=== PATIENT | male | born 1950 | race Caucasian/White ===

== ENCOUNTER → 2022-10-29 11:08 | Outpatient (BNVA) | payer OTHER, SELFPAY | PROVIDERS: PCP Internal Medicine; Visit Provider Urology | DX: C67.9 Malignant neoplasm of bladder, unspecified (principal) | CPT/HCPCS: 51798 ==

== ENCOUNTER 2022-11-11 18:30 | Inpatient (IN) | payer MEDICARE, SELFPAY ==
[2022-11-11] VITALS (22 sets, daily range): BP systolic 70–158; BP diastolic 30–91; PULSE 42–80; RESP 16–18; TEMP 36.1–36.7; O2SAT 97–100; BMI 22.5
--- NOTE | ~2022-11-11 | FL_ITS ---
EXAMINATION: XR FLUOROSCOPY WITH IMAGES CLINICAL INFORMATION: Cystoscopy. Bladder tumor. COMPARISON: None available. TECHNIQUE: Fluoroscopy Supervised By: Dr. Ricky Mckeon. Fluoroscopy Time: 57.4. Cumulative Dose: 20.72 mGy. Images: 4. FINDINGS: There are 4 digital images obtained with double ureteral stent. The proximal ureteral stent is in the left pelvis and the distal end is in the bladder. Minimal contrast is seen in the pelvis. FL/FL guidance in OR IMPRESSION: Fluoroscopy was provided to referring physician for left ureteral stent placement.
--- NOTE | 2022-11-11 13:58 | HO.ANESPROP2 ---
HPI - Anesthesia Eval Consult details Narrative: for cysto, TUR bladder tumor PMFSH Active Problems Active Problems: All Active Problems (Updated 10/29/22 @ 14:46 by Ricky Mckeon MD) Bladder cancer (Acute) Past Medical History Medical History (Updated 10/29/22 @ 14:46 by Ricky Mckeon MD) Anxiety Bladder mass BPH (benign prostatic hyperplasia) EtOH dependence HTN (hypertension) OA (osteoarthritis) Narrative: Last drink September 05 Family History Family history of problems with anesthesia: No Surgical History Surgical History (Updated 11/08/22 @ 11:08 by Vianey Hutchins RN) History of tonsillectomy History of Problems with Anesthesia: No Meds Allergies Allergy/AdvReac Type Severity Reaction Status Date / Time bee pollen [bee stings] Allergy Anaphylaxis Verified 11/08/22 11:08 Active Medications: Current Medications Lactated Ringer's (Lr) 1,000 mls @ 100 mls/hr IVCONT .Q10H LENORA Home Medications Medication Instructions Recorded Confirmed Last Taken Type epinephrine 0.3 mg/0.3 mL 0.3 mg IM ONCE PRN 10/29/22 Unknown History injection, auto-injector finasteride 5 mg tablet 5 mg PO DAILY 10/29/22 Unknown History losartan 25 mg tablet 25 mg PO DAILY 10/29/22 Unknown History sertraline 50 mg tablet 50 mg PO DAILY 10/29/22 Unknown History Vitamin D3 800 units PO DAILY 11/08/22 11/08/22 Unknown History aspirin 81 mg tablet 81 mg PO DAILY 11/08/22 11/08/22 Unknown History cyanocobalamin (vitamin B-12) 1,000 mcg PO DAILY 11/08/22 11/08/22 Unknown History 1,000 mcg tablet (Vitamin B-12) magnesium oxide mg 11/08/22 Unknown History omega-3 fatty acids 1,000 mg PO DAILY 11/08/22 11/08/22 Unknown History vitamin B complex 1 tab PO DAILY 11/08/22 11/08/22 Unknown History Exam Exam Date and Time: November 11, 2022 1358 Airway Mallampati Class: I TM Dist: >3cm Neck ROM: Full Heart: ok Lungs: ok Assessment and Plan Assessment Anesthesia Assessment: Anesthesia Plan Discussed and Chart Reviewed Final Anesthetic Review Family History of Problems with Anesthesia: No History of Problems with Anesthesia: No NPO: Yes ASA Class: II Final Preanesthetic Review: No Changes in Pt Med Stat, Meds/Allgs Chart Reviewed, Consent Obtained/Reviewed and Anes Risks/Benef Reviewed Patient Risk: Intermediate Procedure Risk: Low Anesthetic Plan Anesthetic Plan: GA and Agree w/ Assess. and Plan Disposition: Standard PACU
[2022-11-11 14:20] LABS: COVID-19 Test Negative (Negative); IDNOW Serial# BCCEAD1C
--- NOTE | 2022-11-11 14:38 | PC.NURSE ---
report To lena pruett
--- NOTE | 2022-11-11 14:55 | P.CONAN_ITS ---
[facility] Active Problems Active Problems: All Active Problems (Updated 10/29/22 @ 14:46 by Ricky Mckeon MD) Bladder cancer (Acute) Past Medical History Medical History (Updated 10/29/22 @ 14:46 by Ricky Mckeon MD) Anxiety Bladder mass BPH (benign prostatic hyperplasia) EtOH dependence HTN (hypertension) OA (osteoarthritis) Family History Family history of problems with anesthesia: No Surgical History Surgical History (Updated 11/08/22 @ 11:08 by Vianey Hutchins RN) History of tonsillectomy History of Problems with Anesthesia: No Social History Social History Patient Tobacco Use Status: Never used Tobacco Use of substances other than those prescribed or required for medical reasons: No Advance Directives: No Advance Directives Information Provided: No Meds Allergies Allergy/AdvReac Type Severity Reaction Status Date / Time bee pollen [bee stings] Allergy Anaphylaxis Verified 11/08/22 11:08 Active Medications: Current Medications Acetaminophen (Acetaminophen 325 Mg Tablet) 650 mg PO ONCE PRN PRN Reason: Pain, Mild (Pain Scale 1-3) Fentanyl (Fentanyl Citrate/Pf 100 Mcg/2 Ml Vial) 50 mcg IVPUSH Q5M PRN; Protocol PRN Reason: Pain, Severe (Pain Scale 7-10) Lactated Ringer's (Lr) 1,000 mls @ 100 mls/hr IVCONT .Q10H LENORA Levofloxacin (Levaquin) 500 mg in 100 mls @ 100 mls/hr IV PREOP ONE Stop: 11/11/22 15:24 Ondansetron HCl (Ondansetron Hcl 4 Mg/2 Ml Vial) 4 mg IVPUSH ONCE PRN PRN Reason: Nausea and Vomiting Oxycodone HCl (Oxycodone Hcl Immed Release 5 Mg Tablet) 5 mg PO ONCE PRN PRN Reason: Pain, Severe (Pain Scale 7-10) Home Medications Medication Instructions Recorded Confirmed Last Taken Type epinephrine 0.3 mg/0.3 mL 0.3 mg IM ONCE PRN 10/29/22 Unknown History injection, auto-injector finasteride 5 mg tablet 5 mg PO DAILY 10/29/22 Unknown History losartan 25 mg tablet 25 mg PO DAILY 10/29/22 Unknown History sertraline 50 mg tablet 50 mg PO DAILY 10/29/22 Unknown History Vitamin D3 800 units PO DAILY 11/08/22 11/08/22 Unknown History aspirin 81 mg tablet 81 mg PO DAILY 11/08/22 11/08/22 Unknown History cyanocobalamin (vitamin B-12) 1,000 mcg PO DAILY 11/08/22 11/08/22 Unknown History 1,000 mcg tablet (Vitamin B-12) magnesium oxide mg 11/08/22 Unknown History omega-3 fatty acids 1,000 mg PO DAILY 11/08/22 11/08/22 Unknown History vitamin B complex 1 tab PO DAILY 11/08/22 11/08/22 Unknown History Exam Exam Date and Time: November 11, 2022 1455 Height,Weight and Vital Signs: Height 6 ft 4 in Weight 83.915 kg Last Vital Signs Temp 97.6 F 11/11/22 14:05 Pulse 80 11/11/22 14:05 Resp 16 11/11/22 14:05 BP 158/91 H 11/11/22 14:05 Pulse Ox 98 11/11/22 14:05 O2 Del Method 11/11/22 14:05 Pertinent Lab Results Pertinent Lab Results: Laboratory Tests 11/11/22 13:55 COVID-19 (AME) Negative COVID-19 Clin Com See Note Airway Mallampati Class: III TM Dist: >3cm Neck ROM: Full Assessment and Plan Assessment Anesthesia Assessment: Anesthesia Plan Discussed and Chart Reviewed Final Anesthetic Review Family History of Problems with Anesthesia: No History of Problems with Anesthesia: No NPO: Yes ASA Class: II Final Preanesthetic Review: No Changes in Pt Med Stat, Meds/Allgs Chart Reviewed, Consent Obtained/Reviewed and Anes Risks/Benef Reviewed Patient Risk: Low Procedure Risk: Low Anesthetic Plan Anesthetic Plan: GA Disposition: Standard PACU
--- NOTE | 2022-11-11 15:02 | MHC.SHP ---
Pre-Procedural Eval Section A Date of Service: 11/11/22 The patient is an INPATIENT: No Changes since office visit: No Cold of Flu in the past 2 weeks, No New Medical Problems, No Changes in Medication and No Patient answered all questions The History & Physical has been completed within 30 days and I have reviewed it.: Yes Section B Chief Complaint: Malignant neoplasm of bladder, unspecified Details of Present Illness: left hydro with bladder cancer Relevant Family History (Specify if Yes): No Relevant Social History: None Present Medications: see Short Stay Collaborative assessment Medical History: No relevant PMH History of Previous Operations: No relevant previous surgery Allergies: Allergies Allergy/AdvReac Type Severity Reaction Status Date / Time bee pollen [bee stings] Allergy Anaphylaxis Verified 11/08/22 11:08 Review of Systems Sugical H&P ROS: Negative: Constitution, Cardiovascular, Respiratory, Neurological, Psychiatric, Hem-Onc, Allergic/Immunologic, Gastrointestinal, Genitourinary, Musculoskeletal, Integumentary, Endocrine and Eyes/Ears/Nose/Throat Exam Surgical H&P Exam: Normal: HEENT, Normal: Heart, Normal: Lungs, Normal: Extremities, Normal: Abdomen, Normal: Skin and Normal: Neurological Plan Diagnosis/Plan: Unchanged ( cystoscopy, bilateral retrograde, TURBT) I have reviewed the history and physical and performed a pertinent physical examination on my patient. No changes have occurred unless specified. Time Spent With Patient Time: Total time managing care of this patient today ____ minutes.
--- NOTE | 2022-11-11 18:19 | W.PM.OPN ---
Operative Note Operative Note Date of Service: 11/11/22 Narrative: PreOperative Diagnosis: bladder cancer Post Operative Diagnosis: bladder cancer Procedure: TURBT large with bilateral retrogrades and stents - modifier 22 Surgeon: Dr Ricky Mckeon Anesthesia: general Indications for procedure: gross hematuria with CT imaging showing 5 cm lesion of the left ureteric area with left hydroureteronephrosis Procedure: After informed consent was verified the patient was brought to the operating room and placed in a supine position. Anesthesia was administered per protocol. The patient was placed in a modified dorsal lithotomy position and prepped and draped in a sterile fashion. Safety pause time-out was performed. Antibiotics were confirmed. A 26 Danish continuous flow resectoscope was inserted per urethra. The visual obturator was used in order to minimize potential for urethral damage. extremely large bladder tumor on left sidewall. Satellite lesions throughout base of bladder. Initial approach was to clear satellite lesions from right side and posterior. The extremely larger lesion was slowly resected. Was was very difficult resection took approximately 2 hours which is 150 % longer than typical. There were multiple bladder diverticula lined with tumor. Great care was taken during resection order not to perforate any of these areas. It was difficult to tell if the tumor was invasive. It appeared to be at least T1. At the completion of the procedure the bladder was irrigated. The cystoscope was removed. A [address] Plascencia catheter was inserted into the bladder. 30 cc was placed in the balloon. After completion of resection with multiple irrigation the right ureteric orifice was seen and cannulated. Hydroureteronephrosis was seen. Variable length stent was placed. Likely were able to find the left ureteric orifice right at the edge of the resection zone on the left side. Retrograde examination showed hydroureteronephrosis. A stent was placed which is variable length. Examination under anesthesia showed a mobile bladder. The patient tolerated the procedure well. They were extubated in the operating room and transferred in stable condition to the recovery area. Pathology: Bladder tumor Drains: bilateral stents with 3 way Plascencia catheter
--- NOTE | 2022-11-11 18:59 | PC.NURSE ---
1900 phlebotomy at bedside to draw stat h/h
--- NOTE | 2022-11-11 19:05 | PC.NURSE ---
1904 dr. jordan updated patient with drop sbp 70's and hr as low as 37. anesthesia dr. rios administered ephedrine 10 mgx2. with improvement in vital signs bp 132/64, hr 60's. . updated stat h/h drawn, cbi remains draining punch colored with variable drainage ?bladder spasm. patent cbi
[2022-11-11 19:09] LABS: Hematocrit 37.9 % (42.0-52.0); Hemoglobin 13.1 g/dl (14.0-18.0)
[2022-11-11] MEDS: oxyCODONE HCl Immed Release 5 MG TABLET PO (22:07)
[2022-11-11] MEDS: Lactated Ringers 1,000 ML 100 ML IVCONT (22:14)
[2022-11-12] VITALS (7 sets, daily range): BP systolic 131–150; BP diastolic 65–74; PULSE 71–78; RESP 15–20; TEMP 36–37.2; O2SAT 92–98
--- OUTSIDE RECORDS SUMMARY | 2022-11-12 02:00 | XMS_ITS ---
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 [id number] prostate, unspecified, without urinary obstruction and other lower urinary tract symptoms [LUTS] Problem Anxiety state, 300.00 Active 12161 8003 unspecified Problem Routine general V70.0 Active 1626 62991 medical examination at health care facility Problem Disturbance of 782.0 Active 23484 5003 skin sensation Problem Pain in soft 729.5 Active 8725730 2 tissues of limb Problem Encounter for Z23 Active 569681 02 administration of vaccine Problem Other bursitis 727.3 Active 34472 003 disorders Problem Elevated PSA R97.20 Active 5470482 05 Problem Other and 272.4 Active 05696727 unspecified hyperlipidemia Problem Tinea unguium B35.1 Active 608077 005 Problem Encounter for Z00.00 Active 582442 007 general adult medical examination without abnormal findings Problem Essential I10 Active 67056716 (primary) hypertension Problem Screening for Z12.5 Active 483201 002 prostate cancer ALLERGIES Substance Reaction Event Type Date Status Sera dizziness Drug Allergy May, Active ENCOUNTERS Encounter Location Date Diagnosis [address] Sep, [place] [id number] Sep, [place] [address] Jul, [place] [address] 18 Jul, 2017 [place] [address] [facility] [address] May, Elevated PSA R97.20 [place] [address] 05 May, 2017 Encounter for general adult Practice [place] [address] abnormal finding s Z00.00 ; Encounter for ad ministration of vaccine Z23 ; Sc reening for prostate cancer Z12.5 and Essential (prima ry) hypertension I10 [address] 12 Aug, 2016 Essential (pr imary) Practice [place], [place] hypertension I [address] 14 Jun, 2016 Essential (pr imary) Practice [place] hypertension I [address] 20 May, 2016 Essential (pr imary) [place] hypertension [place] [address] Apr, Encounter for general adult Practice [place] [address] abnormal finding s Z00.00 ; Essential (prima ry) hypertension I10 ; Tinea unguium B35.1 ; Encounter for screening for ma lignant neoplasm of pros phipps Z12.5 and Encounter for im munization Z23 [address] December, [place] [address] December, [place] [address] Oct, Essential (pr imary) Practice [place] hypertension [place] [address] Oct, Essential (pr imary) Practice [place] hypertension I [address] Apr, Routine gener al medical [place] examination at [facility] facility V70.0 ; Unspecified essential hypert ension 401.9 ; Other and unspec ified hyperlipidemia 2 72.4 ; Other bursitis disorde rs 727.3 and Need for prophyl actic vaccination agai nst streptococcus pn eumoniae (pneumococcus) V 03.[address] Mar, Other bursiti s disorders 727.3 [place] [address] Mar, [place] [address] Jan, [place] [address] December, Unspecified e ssential [place] hypertension 4 01.[address] Nov, [place] [address] Oct, Unspecified e ssential Practice [place], [place] hypertension 4 01.9 ; [place] [address] soft tissues of limb 729.5 and Disturbance of s kin sensation 782.[address] Jun, [place] [address] Apr, Routine gener al medical Practice [place] examination at [place] [address] facility V70.0 ; Unspecified essential hypert ension 401.9 ; Other and unspec ified hyperlipidemia 2 72.4 ; Hyperplasia of p rostate, unspecified, wit hout urinary obstruction and other lower urinary tract sy mptoms [LUTS] 600.90 ; Anxiety state, unspecified 300. 00 and Lateral epicondylitis of elbow 726.[address] Mar, [place] [address] Feb, [place] [address] December, [place] [address] December, [place] [address] December, Unspecified e ssential Practice [place], [place] hypertension 4 01.9 ; [address] Hyperplasia of p rostate, unspecified, wit hout urinary obstruction and other lower urinary tract sy mptoms [LUTS] 600.90 and Other and unspecified hype rlipidemia 272.[address] Nov, [place] [address] Nov, [place] Nov, Practice [address] 26 Oct, [address] 16 Aug, [address] 14 Aug, [address] 18 Jul, 2013 Routine gener al medical Practice [place] examination at [place] [address] facility V70.0 ; Unspecified essential hypert ension 401.9 ; Other and unspec ified hyperlipidemia 2 72.4 and Hyperplasia of p rostate, unspecified, wit hout urinary obstruction and other lower urinary tract sy mptoms [LUTS] [address] 17 Apr, 2013 Routine gener al medical [place] examination at [place] [address] facility V70.0 ; Unspecified essential hypert ension 401.9 ; Other and unspec ified hyperlipidemia 2 72.4 ; Anxiety state, unspecifi ed 300.00 and Hyperplasia of p rostate, unspecified, wit hout urinary obstruction and other lower urinary tract sy mptoms [LUTS] 600.[address] 18 Oct, 2012 Cough 786.2 a nd Rash and other Practice [place] nonspecific sk in eruption 782.[address] [place] [address] 14 Oct, [address] 11 Jul, [address] 10 Mar, [address] Feb, Routine gener al medical [place] examination [place] [address] facility V70.0 ; Screening for unspecified cond ition V82.9 ; Obesity, unspeci fied 278.00 ; Other and unspec ified hyperlipidemia 2 72.4 ; Unspecified esse ntial hypertension 401 .9 ; Anxiety state, unspecifi ed 300.00 and Hyperplasia of p rostate, unspecified, wit hout urinary obstruction and other lower urinary tract sy mptoms [LUTS] [address] Jan, Practice [place], [address] Sep, Practice [place], [address] Jun, Practice [place], [address] Mar, Practice [place], [address] Feb, Practice [place], [address] Feb, Routine gener al medical [place] examination [place] [address] facility V70.0 ; Unspecified essential hypert ension 401.9 ; Other and unspec ified hyperlipidemia 2 72.4 ; Anxiety state, unspecifi ed 300.00 and Hyperplasia of p rostate, unspecified, wit hout urinary obstruction and other lower urinary tract sy mptoms [LUTS] [address] Feb, Routine gener al medical [place] examination [place] [address] facility V[address] Jan, [place], [address] Nov, Practice [place], [address] Nov, Practice [place], [address] Nov, Practice [place], [address] Nov, Swelling, mas s, or lump in [place] chest 786.6 ; Unspecified [facility] essential hypert ension 401.9 and Anxiety stat e, unspecified 300.[address] Sep, Practice [place], [address] Feb, Routine gener al medical Practice [place] examination [place] [address] facility V70.0 ; Unspecified essential hypert ension 401.9 and Other and un specified hyperlipidemia [address] Feb, Practice [place], [facility] [address] Nov, Practice [place], [address] Aug, Practice [place], [address] 08 Jan, 2009 Routine gener al medical [place] examination [place] [address] facility V70.0 ; Unspecified essential hypert ension 401.9 and Other specif ied congenital anomaly of skin 757.[address] 04 Jan, 2009 Routine gener al medical Practice [place] examination at [address] V70.0 ; Other and unspecified hype rlipidemia 272.4 and Unspec ified essential hypertension [address] December, Colitis, ente ritis, and Practice [place] [address] infectious origi n 009.1 and Routine general medical examination at [facility] facility V70.[address] Oct, Practice [place], [place] [address] [place] [address] Oct, Practice [place], [place] [address] [place] [address] Aug, Practice [place], [place] [address] [place] [address] Jul, Practice [place], [place] [address] [place] [address] Jul, Practice [place], [place] [address] [place] [address] Jun, Practice [place], [place] [address] [place] [address] Jun, Practice [place], [place] [address] [place] [address] Mar, Practice [place], [place] [address] [place] [address] December, Routine gener al medical [place] examination [place] [address] facility V70.0 a nd Unspecified essential hypert ension 401.[address] 15 Sep, 2007 Routine gener al medical [place] examination [place] [address] facility V70.0 a nd Other and unspecified hype rlipidemia 272.[address] 05 Jul, 2007 Herpes zoster without mention Practice [place], [place] of complicatio n 053.9 [address] [facility] [place] [address] Apr, Practice [place], [place] [address] [place] [address] Feb, Unspecified s inusitis (chronic) Practice [place], [place] 473.9 and Othe r and unspecified [address] conjunctivitis [address] Feb, Practice [place], [place] [address] [place] [address]. Jan, Other and uns pecified Practice [place] conjunctivitis 372.[address] 30 Nov, 2006 Routine gener al medical [place] examination at [facility] facility V70.0 ; Unspecified essential hypert ension 401.9 ; Pure hypercholes terolemia 272.0 and Anxiety stat e, unspecified 300.[address] Nov, Other and uns pecified Practice [place] hyperlipidemia 272.4 ; [address] Unspecified esse ntial hypertension 401 .9 and Special screening for ma lignant neoplasm of pros phipps V76.[address] Sep, Bronchitis, n ot specified as Practice [place], [place] acute or chron ic [address] Aug, Practice [place], [place] [address] [place] [address]. May, Unspecified e ssential Practice [place] hypertension 4 01.9 ; Pure [address] hypercholesterol emia 272.0 and Anxiety state, u nspecified 300.[address] Apr, Practice [place], [place] [address] [place] [address] 18 Apr, 2006 Practice [place], [place] [address] [place] [address] St. 31 Mar, 2006 Practice [place], [place] [address] [place] [address] St. 17 Mar, 2006 [place] [address] [place] [address] St. 20 Feb, 2006 Unspecified e ssential [place] hypertension 4 01.9 and Pure [address] hypercholesterol emia 272.[address] 14 Feb, 2006 Practice [place], [place] [address] [place] [address] St. 13 Jan, 2006 Practice [place], [place] [address] [place] [address]. 05 Jan, 2006 Unspecified e ssential Practice [place] hypertension 4 01.9 [address] [facility] [address] 03 Oct, 2005 Routine gener al medical [place] examination at [facility] facility V70.0 [facility] [address] 31 Aug, 2005 Elevated bloo d pressure reading Practice [place], [place] [address] hypertension 796 .2 and Pure hypercholesterol emia 272.0 IMMUNIZATIONS Vaccine Route Administration Date Status Influenza, High Dose (Private IM Intramuscular May 29, 2017 A dministered Supply) Tdap (Private) IM Intramuscular May 29, 2017 Administered Prevnar 13 (State Supply) IM Intramuscular May 22, 2015 Admin istered Influenza, High Dose (Private IM Intramuscular May 23, 2016 A dministered Supply) Pneumovax-Pneumococcal IM Intramuscular May 23, 2016 Administ ered polysaccharide PPV23 (Private) SOCIAL HISTORY Qualifiers Date Former Smoker REASON FOR REFERRAL FUNCTIONAL STATUS PLAN OF CARE Activity Details Follow Up 1 Year,prn Reason:CPX Future Test PSA Screening 19409445 Future Test Thyroid Stimulating Hormone w/Reflex 20170529 Future Test CBC AUTO DIFF (REFLEX TO MAN UAL) 20170529 Future Test Comprehensive Metabolic Pane l(CMP) 20170529 Future Test PSA Screening 20170529 Future Test Lipid Profile 33886305 VITAL SIGNS Temperature 97.2 degrees Fahrenheit 2017-05-29 Temperature 97.8 degrees Fahrenheit 2016-05-23 Temperature 97.4 degrees Fahrenheit 2015-05-22 Temperature 98.1 degrees Fahrenheit 2015-04-14 Temperature 97.6 degrees Fahrenheit 2015-01-20 Temperature 97.9 degrees Fahrenheit 2014-10-24 Temperature 97.4 degrees Fahrenheit 2014-05-16 Temperature 97.9 degrees Fahrenheit 2014-01-13 Temperature 97.5 degrees Fahrenheit 2013-05-11 Temperature 99.3 degrees Fahrenheit 2012-11-09 Temperature 97.4 degrees Fahrenheit 2012-03-24 Temperature 97.0 degrees Fahrenheit 2011-03-12 Temperature 97.9 degrees Fahrenheit 2010-11-23 Temperature 98.1 degrees Fahrenheit 2010-03-12 Temperature 98.4 degrees Fahrenheit 2009-01-30 Temperature 98.1 degrees Fahrenheit 2009-01-12 Temperature 97.9 degrees Fahrenheit 2007-12-30 Temperature 97.0 degrees Fahrenheit 2007-07-29 Temperature 96.7 degrees Fahrenheit 2007-02-23 Temperature 98.7 degrees Fahrenheit 2007-02-20 Temperature 97.7 degrees Fahrenheit 2006-12-22 Temperature 98.2 degrees Fahrenheit 2006-09-25 Temperature 98 degrees Fahrenheit 2006-06-12 Temperature 98.3 degrees Fahrenheit 2006-03-13 Temperature 97 degrees Fahrenheit 2006-01-27 Temperature 97.9 degrees Fahrenheit 2005-10-25 Temperature 96.5 degrees Fahrenheit 2005-09-24 Heart Rate 68 /min 2017-05-29 Heart Rate 68 /min 2016-05-23 Heart Rate 78 /min 2015-11-15 Heart Rate 68 /min 2015-05-22 Heart Rate 76 /min 2015-04-14 Heart Rate 76 /min 2015-01-20 Heart Rate 80 /min 2014-10-24 Heart Rate 88 /min 2014-05-16 Heart Rate 80 /min 2014-01-13 Heart Rate 80 /min 2013-05-11 Heart Rate 93 /min 2012-11-09 Heart Rate 76 /min 2012-03-24 Heart Rate 75 /min 2011-03-12 Heart Rate 93 /min 2010-11-23 Heart Rate 82 /min 2010-03-12 Heart Rate 77 /min 2009-01-30 Heart Rate 70 /min 2009-01-12 Heart Rate 83 /min 2007-12-30 Heart Rate 82 /min 2007-07-29 Heart Rate 71 /min 2007-02-23 Heart Rate 86 /min 2007-02-20 Heart Rate 86 /min 2006-12-22 Heart Rate 77 /min 2006-09-25 Heart Rate 78 /min 2006-06-12 Heart Rate 70 /min 2006-03-13 Heart Rate 73 /min 2006-01-27 Heart Rate 78 /min 2005-10-25 Heart Rate 80 /min 2005-09-24 Weight 224 lbs 2017-05-29 Weight 239 lbs 2016-05-23 Weight 249 lbs 2015-05-22 Weight 239 lbs 2015-04-14 Weight 253 lbs 2015-01-20 Weight 251.4 lbs 2014-10-24 Weight 244.4 lbs 2014-05-16 Weight 234.0 lbs 2014-01-13 Weight 248 lbs 2013-05-11 Weight 243 lbs 2012-11-09 Weight 242 lbs 2012-03-24 Weight 228 lbs 2011-03-12 Weight 232 lbs 2010-11-23 Weight 219 lbs 2010-03-12 Weight 211 lbs 2009-01-30 Weight 212 lbs 2009-01-12 Weight 203.6 lbs 2007-12-30 Weight 248 lbs 2007-07-29 Weight 237 lbs 2007-02-23 Weight 237 lbs 2007-02-20 Weight 231 lbs 2006-12-22 Weight 226 lbs 2006-09-25 Weight 225 lbs 2006-06-12 Weight 233 lbs 2006-03-13 Weight 230 lbs 2006-01-27 Weight 222 lbs 2005-10-25 Weight 220 lbs 2005-09-24 BMI 28.37 kg/m2 2017-05-29 BMI 30.27 kg/m2 2016-05-23 BMI 31.54 kg/m2 2015-05-22 BMI 30.27 kg/m2 2015-04-14 BMI 32.05 kg/m2 2015-01-20 BMI 31.84 kg/m2 2014-10-24 BMI 30.96 kg/m2 2014-05-16 BMI 29.64 kg/m2 2014-01-13 BMI 31.41 kg/m2 2013-05-11 BMI 30.78 kg/m2 2012-11-09 BMI 30.65 kg/m2 2012-03-24 BMI 28.88 kg/m2 2011-03-12 BMI 27.37 kg/m2 2010-03-12 BMI 26.37 kg/m2 2009-01-30 BMI 26.50 kg/m2 2009-01-12 BMI 25.45 kg/m2 2007-12-30 BMI 30.99 kg/m2 2007-07-29 BMI 28.87 kg/m2 2006-12-22 BMI 28.24 kg/m2 2006-09-25 BMI 27.75 kg/m2 2005-10-25 BMI 27.50 kg/m2 2005-09-24 Height 74.5 in 2017-05-29 Height 74.5 in 2016-05-23 Height 74.5 in 2015-11-15 Height 74.5 in 2015-05-22 Height 74.5 in 2015-04-14 Height 74.5 in 2015-01-20 Height 74.5 in 2014-10-24 Height 74.5 in 2014-05-16 Height 74.5 in 2014-01-13 Height 74.5 in 2013-05-11 Height 74.5 in 2012-11-09 Height 74.5 in 2012-03-24 Height 74.5 in 2011-03-12 Height 75 in 2010-03-12 Height 75 in 2009-01-30 Height 75 in 2009-01-12 Height 75 in 2007-12-30 Height 75 in 2007-07-29 Height 75 in 2006-12-22 Height 75 in 2006-09-25 Height 75 in 2005-10-25 Height 75 in 2005-09-24 Respiratory Rate 16 /min 2017-05-29 Respiratory Rate 16 /min 2016-05-23 Respiratory Rate 17 /min 2015-11-15 Respiratory Rate 16 /min 2015-05-22 Respiratory Rate 16 /min 2015-04-14 Respiratory Rate 16 /min 2015-01-20 Respiratory Rate 16 /min 2014-10-24 Respiratory Rate 20 /min 2014-05-16 Respiratory Rate 16 /min 2014-01-13 Respiratory Rate 16 /min 2013-05-11 Respiratory Rate 18 /min 2012-11-09 Respiratory Rate 16 /min 2012-03-24 Respiratory Rate 16 /min 2011-03-12 Respiratory Rate 16 /min 2010-11-23 Respiratory Rate 16 /min 2010-03-12 Respiratory Rate 16 /min 2009-01-30 Respiratory Rate 18 /min 2009-01-12 Respiratory Rate 18 /min 2007-12-30 Respiratory Rate 18 /min 2007-07-29 Respiratory Rate 18 /min 2007-02-23 Respiratory Rate 18 /min 2007-02-20 Respiratory Rate 16 /min 2006-12-22 Respiratory Rate 16 /min 2006-09-25 Respiratory Rate 16 /min 2006-06-12 Respiratory Rate 16 /min 2006-03-13 Respiratory Rate 16 /min 2006-01-27 Respiratory Rate 20 /min 2005-10-25 Respiratory Rate 16 /min 2005-09-24 Oximetry 95% RA % 2012-11-09 Blood pressure systolic 142 mm Hg 2017-05-29 Blood pressure diastolic 70 mm Hg 2017-05-29 MEDICATIONS Medication Instructions Dosage Frequency Start End Date Duration Stat us Date Saw Lawrence Active Magnesium Active Citrate Losartan TAKE 1 AND 90 Active Potassium 50 1/2 TABLETS MG BY MOUTH ONCE A DAY Aspirin 81 MG Orally Once a 1 tablet 24h 30 day(s) A ctive day Vitamin B Orally once a 1 tablet 24h Active Complex - day Zoloft 50 MG TAKE 1 90 Active TABLET BY MOUTH ONCE DAILY Fish Oil 1000 Orally QD 2 capsule 24h 30 day(s) Acti ve MG Proscar 5 MG Orally Once a 1 tablet 24h 30 day(s) Ac tive day PROCEDURES Procedure Date Ordered Result Body Site IMMUNIZATION ADMIN May 29, 2017 AT LEAST 1 RX TRANSMIT ERX SYS November 09, 2012 ANNUAL WELLNESS VST; PPS SUBSQT VST May 23, 2016 URINALYSIS, AUTO, W/O SCOPE March 24, 2012 IMMUNIZATION ADMIN May 23, 2016 URINE-NO MICRO January 30, 2009 TOBACCO NON-USER November 09, 2012 IMMUNIZATION ADMIN, EACH ADD May 29, 2017 PROS CANCER SCR; DIGTL RECTAL EXAM December 30, 2007 URINE-NO MICRO December 22, 2006 PROS CANCER SCR; DIGTL RECTAL EXAM March 12, 2011 PROS CANCER SCR; DIGTL RECTAL EXAM March 12, 2010 PROS CANCER SCR; DIGTL RECTAL EXAM January 30, 2009 URINE-NO MICRO March 12, 2011 URINE-NO MICRO October 25, 2005 IMMUNIZATION ADMIN May 22, 2015 MEASURE BLOOD OXYGEN LEVEL November 09, 2012 MICROALBUMIN, SEMIQUANT March 24, 2012 ANNUAL WELLNESS VST; PPS SUBSQT VST May 29, 2017 NEBULIZER TREATMENT November 09, 2012 FLU VACC PRSV FREE INC ANTIG May 23, 2016 ASSAY TEST FOR BLOOD, FECAL March 24, 2012 PNEUMOCOCCAL VACC 13 JOEL IM May 22, 2015 Pneumovax-Pneumococcal polysaccharide PPV23 (Private) May 23, 016 FLU VACC PRSV FREE INC ANTIG May 29, 2017 ASSAY TEST FOR BLOOD, FECAL May 11, 2013 TDAP VACCINE >7 IM May 29, 2017 ADMN PNEUMCOC VAC NO FEE SCHED May 23, 2016 RESULTS Name Result Date Reference Range Comprehensive Metabolic 2017-05-29 Panel(CMP) Glucose 108 65-100 BUN 24 7-23 Creatinine 0.77 0.66-1.25 BUN/Creat 31.2 7.0-25.0 Sodium 138 137-145 Potassium 4.6 3.6-5.0 Chloride 102 98-107 CO2 28 22-30 Anion Gap 8.0 5.0-15.0 Calcium 8.8 8.4-10.6 Tot.Prot. 7.0 6.3-8.2 Albumin 4.3 2.6-5.2 A/G Ratio 1.6 1.1-1.8 Alk Phos 55 38-126 AST 23 15-40 ALT 33 <=56 Bilirubin 0.6 0.2-1.3 eGFR >=60 >=60 Comment The MDRD study equation has not been validated in children under 18 years and women. If patient is , multiply reported result by 1.21. Test Site [facility] Hemoglobin A1c 2017-05-29 Hgb A1c 5.4 4.5-6.1 Calculated Mean 94 69-123 Comment Hgb A1c: Normal range 4.5 - 6.1% Diabetic levels: Therapeutic goal < 7% Re-evaluate therapy > 8% Calculated mean glucose therapeutic goal < 150 mg/dl Thyroid Stimulating Hormone 2017-05-29 w/Reflex TSH 1.030 0.500-4.700 Lipid Profile 2017-05-29 Cholestero 243 <=200 Trig. 94 <=150 HDL 83 >=40 LDL 141.2 <=130.0 Card.Risk 2.93 <=4.97 Rel.Risk 0.59 <=1.00 CBC AUTO DIFF (REFLEX TO 2017-05-29 MANUAL) WBC 6.02 4.80-10.80 RBC 4.53 4.60-6.20 HGB 14.8 14.0-18.0 HCT 43.0 42.0-52.0 MCV 94.9 80.0-94.0 MCH 32.7 27.0-31.0 MCHC 34.4 32.0-36.0 PLT 184.0 150.0-450.0 RDW-CV 12.3 9.9-14.5 ABS NEUT 4.0 1.8-8.6 ABS LYMPH 1.3 0.5-5.4 ABS MONO 0.6 0.0-1.3 ABS EOS 0.1 0.0-0.8 ABS BASO 0.0 0.0-0.3 ABS IG 0.01 0.00-0.10 NEUT % 66.70 37.00-80.00 LYMPH % 21.80 10.00-50.00 MONO % 9.10 0.01-12.00 EOS % 1.70 0.01-7.00 BASO % 0.50 0.01-2.50 IG% 0.2 0.0-1.0 RBC Morph. NORMAL RBC Incl. WBC Morph NORMAL PLT Est. NORMAL PLT Morph NORMAL Test Site [facility] PSA Screening 2017-05-29 PSA 4.530 <=4.000 Liver Function Test Panel 2016-06-12 (LFT) Tot.Prot. 6.8 6.3-8.2 Albumin 4.0 2.6-5.2 A/G Ratio 1.4 1.1-1.8 Alk Phos 62 38-126 AST 32 15-40 ALT 43 <=56 Bilirubin 0.6 0.2-1.3 Benjamin,Unconj 0.3 <=1.1 Benjamin,Conjug 0.0 <=0.3 Benjamin,Direct 0.3 0.0-0.4 Benjamin,Delta 0.3 0.0-0.6 Test Site [facility] PSA Screening 2016-06-12 PSA 0.739 <=4.000 Lipid Profile 2016-02-06 Cholestero 234 <=200 Trig. 124 <=150 HDL 86 >=40 LDL 123.2 <=130.0 Card.Risk 2.72 <=4.97 Rel.Risk 0.55 <=1.00 CBC Auto Diff (Reflex To 2016-02-06 Manual) WBC 5.39 4.80-10.80 RBC 4.44 4.60-6.20 HGB 14.3 14.0-18.0 HCT 41.3 42.0-52.0 MCV 93.0 80.0-94.0 MCH 32.2 27.0-31.0 MCHC 34.6 32.0-36.0 PLT 187.0 150.0-450. RDW-CV 12.7 9.9-14.5 ABS NEUT 3.0 1.8-8.6 ABS LYMPH 1.6 0.5-5.4 ABS MONO 0.5 0.0-1.3 ABS EOS 0.2 0.0-0.8 ABS BASO 0.0 0.0-0.3 ABS IG 0.01 0.00-0.10 NEUT % 56.30 37.00-80.0 LYMPH % 30.40 10.00-50.0 MONO % 9.10 0.01-12.00 EOS % 3.30 0.01-7.00 BASO % 0.70 0.01-2.50 IG% 0.2 0.0-1.0 RBC Morph. NORMAL RBC Incl. WBC Morph NORMAL PLT Est. NORMAL PLT Morph NORMAL Test Site [facility] Comprehensive Metabolic Panel 2016-02-06 Glucose 106 65-100 BUN 19 7-23 Creatinine 0.90 0.66-1.25 BUN/Creat 21.1 7.0-25.0 Sodium 139 137-145 Potassium 4.3 3.6-5.0 Chloride 102 98-107 CO2 28 22-30 Anion Gap 9.0 5.0-15.0 Calcium 9.0 8.4-10.6 Tot.Prot. 6.6 6.3-8.2 Albumin 3.9 2.6-5.2 A/G Ratio 1.4 1.1-1.8 Alk Phos 58 38-126 AST 27 15-40 ALT 31 <=56 Bilirubin 0.6 0.2-1.3 eGFR >=60 >=60 Comment The MDRD study equation has not been validated in children under 18 years and women. If patient is , multiply reported result by 1.21. Test Site [facility] Vitamin D, 25-Hydroxy IA 2014-10-24 VITAMIN D, 25-OH, TOTAL 39 30-100 VITAMIN D, 25-OH, D3 39 VITAMIN D, 25-OH, D2 <4 Vitamin B12 2014-10-24 Vit. B12 915.0 239.0-931. Occult Blood, Feces (FOBT) 2013-05-11 (FIT) Occ Bld Neg Test Site Specimen Type POC Influenza A+B ([facility] 2012-11-09 Sites Only) FLU A Ag Negative NEGATIVE FLU B Ag Negative NEGATIVE Test Site [facility] Occult Blood, Feces (FOBT) 2012-03-24 (FIT) Occ Bld NEG Test Site Specimen Type Urinalysis, Routine (UA) 2012-03-24 Automated Interfer: UA Micro? Color Yellow Clarity Glucose Neg Clinitest Bilirubin Neg Ictotest Ketones Neg SG 1.010 pH 7.0 Protein Neg Urobil. 0.2 Nitrite Neg Blood Neg Leukocytes Neg UA/Micro Color Inf. Test Site Urinalysis, Routine (UA) 2011-03-12 Automated Interfer: UA Micro? Color Lt. Yellow Clarity Glucose Neg Clinitest Bilirubin Neg Ictotest Ketones Neg SG 1.010 pH 5.5 Protein Neg Urobil. 0.2 Nitrite neg Blood Neg Leukocytes Neg UA/Micro Color Inf. Test Site CT Scan: Chest Urinalysis, Routine (UA) 2009-01-30 Automated Interfer: UA Micro? Color Yellow Clarity Glucose Neg Clinitest Bilirubin Neg Ictotest Ketones Neg SG 1.010 pH 7.0 Protein Neg Urobil. 0.2 Nitrite Neg Blood Neg Leukocytes Neg UA/Micro Color Inf. Test Site Colonoscopy 97992 Urinalysis, Routine (UA) Automated Interfer: UA Micro? Color yellow Clarity Glucose neg Clinitest Bilirubin neg Ictotest Ketones neg SG 1.010 pH 7.0 Protein neg Urobil. 0.2 Nitrite neg Blood neg Leukocytes neg UA/Micro Color Inf. Test Site Xray: Chest PA/LAT Urinalysis, Routine (UA) Automated Interfer: UA Micro? Color lt yellow Clarity Glucose neg Clinitest Bilirubin neg Ictotest Ketones neg SG 1.015 pH 7.5 Protein neg Urobil. 0.2 Nitrite neg Blood neg Leukocytes neg UA/Micro Color Inf. Test Site REASON FOR VISIT med refill, RE-refill, RE-refills, RE-hurt shoulder, Lab Results, CPE , new med refills, refill, CPX, lab results, refill losartan, TDAP, cpe , refill Zoloft, Losartan, Labs, bp check , B/P, ANNUAL, c/o swelling on elbow, RE: refill proscar , Rx refill: Losartan (90 day supply), 2-3 month f/u BP , Rx refill: Lisinopril, bp issues, Rx Request- Sertraline , cpe , R elbow pain, appt scheduling error , Rx refill( all out ), Refills, Rx Request- Lisinopril, f/u, no c/o today, rx request-Finasteride, Refills, Refills-Sertraline, Reschedule letter , Refills-Finasteride, FYI, Refills, CPX, c/o cough chest congestion , Rx Request- Sertraline and Lisinopril SEE NOTE, RX request, Rx Request , CPX (had seen Dr Rios previously), Lisinopril and CPE scheduled, rx request, rx request, cpx, patient wasdownstairs needed order, Refills, faxed already, medication question, CT results/ med side effect, Test results, ? MUSCLE PULL RT SIDE BELOW BREAST AREA, Refills, faxed already, Annuals, refill, Refills, CPX, Needs lab orders faxed, diarrhea x 4 days , cpx, RX THAT WAS CALLED IN, Refill, RX request, Refills, left message. rb, FYI, annual cpx, Lab slip for CPX, rash, cold for 6/ weeks , Needs call back from office, conjuctivitis , cpx, Message, annual, congestion, refill, 3 mos fu HTN, hypertension, refill, refill, Follow up, MEDS, 3month f/u, annual, annual, EST CARE Insurance Providers [facility] Member Patient Patient Patient Patient Patient Subscriber Subscriber Subscriber Group Insurance Plan Plan Plan Plan ID Relationship Address Phone Name Date of ID Name Date of No Type Insurance Insurance Insurance Coverage to Subscriber Address Phone Name Dates MEDICARE A [phone] MEDICARE A self Luis [id number] [address] [facility] [place] [id number] [facility] [phone] [facility] self Luis [id number] [facility] [id number] HEALTHCARE [place] [address] OPTIONS1- SUPPLEMENT [id number] SUPPLEMENT AL AL ANTHEM [phone] ANTHEM self Luis [id number] [place] [address]
--- OUTSIDE RECORDS SUMMARY | 2022-11-12 02:04 | XMS_ITS ---
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, unspecified, without urinary obstruction and other lower urinary tract symptoms [LUTS] Problem Anxiety state, 300.00 Active 44447 8003 unspecified Problem Routine general V70.0 Active 1626 89189 medical examination at health care facility Problem Disturbance of 782.0 Active 46034 5003 skin sensation Problem Pain in soft 729.5 Active 1625347 2 tissues of limb Problem Encounter for Z23 Active 058310 02 administration of vaccine Problem Other and 272.4 Active 57722539 unspecified hyperlipidemia Problem Elevated PSA R97.20 Active 5637205 05 Problem Other bursitis 727.3 Active 66895 003 disorders Problem Tinea unguium B35.1 Active 097274 005 Problem Encounter for Z00.00 Active 028606 007 general adult medical examination without abnormal findings Problem Essential I10 Active 58117155 (primary) hypertension Problem Screening for Z12.5 Active 630083 002 prostate cancer ALLERGIES Substance Reaction Event Type Date Status Sera dizziness Drug Allergy May, Active ENCOUNTERS Encounter Location Date Diagnosis [address] Sep, [place] [address] Sep, [place] [address] Jul, [place] [address] 18 Jul, 2017 [place] [address] [facility] [place] [address] May, Elevated PSA R97.20 [place] [address] 05 May, 2017 Encounter for general adult [place] [address] abnormal finding s Z00.00 ; Encounter for ad ministration of vaccine Z23 ; Sc reening for prostate cancer Z12.5 and Essential (prima ry) hypertension I10 [address] 12 Aug, 2016 Essential (pr imary) [place] hypertension [place] [address] 14 Jun, 2016 Essential (pr imary) [place] hypertension I [address] 20 May, 2016 Essential (pr imary) [place] hypertension I [address] Apr, Encounter for general adult [place] [address] abnormal finding s Z00.00 ; Essential (prima ry) hypertension I10 ; Tinea unguium B35.1 ; Encounter for screening for ma lignant neoplasm of pros phipps Z12.5 and Encounter for im munization Z23 [address] December, [place] [address] December, [place] [address] Oct, Essential (pr imary) [place] hypertension I [address] Oct, Essential (pr imary) [place] hypertension I [address] Apr, Routine gener al medical [place] examination at [facility] facility V70.0 ; Unspecified essential hypert ension 401.9 ; Other and unspec ified hyperlipidemia 2 72.4 ; Other bursitis disorde rs 727.3 and Need for prophyl actic vaccination agai nst streptococcus pn eumoniae (pneumococcus) V 03.[address] Mar, Other bursiti s disorders 727.3 [place] [address] Mar, [place] [address] Jan, [place] [address] December, Unspecified e ssential [place] hypertension 4 01.[address] Nov, [place] [address] Oct, Unspecified e ssential [place] hypertension 4 01.9 ; [place] [address] soft tissues of limb 729.5 and Disturbance of s kin sensation 782.[address] Jun, [place] [address] Apr, Routine gener al medical [place] examination at [place] [address] facility V70.0 ; Unspecified essential hypert ension 401.9 ; Other and unspec ified hyperlipidemia 2 72.4 ; Hyperplasia of p rostate, unspecified, wit hout urinary obstruction and other lower urinary tract sy mptoms [LUTS] 600.90 ; Anxiety state, unspecified 300. 00 and Lateral epicondylitis of elbow 726.[address] Mar, [place] [address] Feb, [place] [address] December, [place] [address] December, [place] [address] December, Unspecified e ssential [place] hypertension 4 01.9 ; [address] Hyperplasia of p rostate, unspecified, wit hout urinary obstruction and other lower urinary tract sy mptoms [LUTS] 600.90 and Other and unspecified hype rlipidemia 272.[address] Nov, [place] [address] Nov, [place] Nov, Practice [address] 26 Oct, [address] 16 Aug, [address] 14 Aug, [address] 18 Jul, 2013 Routine gener al medical [place] examination [place] [address] facility V70.0 ; Unspecified essential hypert ension 401.9 ; Other and unspec ified hyperlipidemia 2 72.4 and Hyperplasia of p rostate, unspecified, wit hout urinary obstruction and other lower urinary tract sy mptoms [LUTS] 600.[address] 17 Apr, 2013 Routine gener al medical [place] examination [place] [address] facility V70.0 ; Unspecified essential hypert ension 401.9 ; Other and unspec ified hyperlipidemia 2 72.4 ; Anxiety state, unspecifi ed 300.00 and Hyperplasia of p rostate, unspecified, wit hout urinary obstruction and other lower urinary tract sy mptoms [LUTS] 600.[address] 18 Oct, 2012 Cough 786.2 a nd Rash and other [place] nonspecific sk in eruption 782.[address] [place] [address] 14 Oct, [address] 11 Jul, [address] 10 Mar, [address] Feb, Routine gener al medical [place] [address] facility V70.0 ; Screening for unspecified cond ition V82.9 ; Obesity, unspeci fied 278.00 ; Other and unspec ified hyperlipidemia 2 72.4 ; Unspecified esse ntial hypertension 401 .9 ; Anxiety state, unspecifi ed 300.00 and Hyperplasia of p rostate, unspecified, wit hout urinary obstruction and other lower urinary tract sy mptoms [LUTS] 600.[address] Jan, [place], [address] Sep, [place], [address] Jun, [place], [address] Mar, [place], [address] Feb, [place], [address] Feb, Routine gener al medical [place] [address] facility V70.0 ; Unspecified essential hypert ension 401.9 ; Other and unspec ified hyperlipidemia 2 72.4 ; Anxiety state, unspecifi ed 300.00 and Hyperplasia of p rostate, unspecified, wit hout urinary obstruction and other lower urinary tract sy mptoms [LUTS] 600.[address] Feb, Routine gener al medical [place] [address] [address] Jan, [place], [address] Nov, [place], [address] Nov, [place], [address] Nov, [place], [address] Nov, Swelling, mas s, or lump in [place] chest 786.6 ; Unspecified [facility] essential hypert ension 401.9 and Anxiety stat e, unspecified 300.[address] Sep, [place], [address] Feb, Routine gener al medical [place] [address] facility V70.0 ; Unspecified essential hypert ension 401.9 and Other and un specified hyperlipidemia [address] Feb, [place], [facility] [address] Nov, [place], [address] Aug, [place], [address] 08 Jan, 2009 Routine gener al medical [place] [address] facility V70.0 ; Unspecified essential hypert ension 401.9 and Other specif ied congenital anomaly of skin 757.[address] 04 Jan, 2009 Routine gener al medical [place] examination at [address] V70.0 ; Other and unspecified hype rlipidemia 272.4 and Unspec ified essential hypertension [address] December, Colitis, ente ritis, and [place] gastroenteriti [place] presumed [address] infectious origi n 009.1 and Routine general medical examination at formerly [facility] facility V70.[address] Oct, [place] [address] [place] [address] [email or web address] [address] Oct, [place] [address] [place] [address] Aug, [place] [address] [place] [address] [email or web address] [address] Jul, [place] [address] [place] [address] [email or web address] [address] Jul, [place] [address] [place] [address] [email or web address] [address] Jun, [place] [address] [place] [address] [email or web address] [address] Jun, [place] [address] [place] [address] [email or web address] [address] Mar, [place] [address] [place] [address] [email or web address] [address] December, Routine gener al medical [place] [address] facility V70.0 a nd Unspecified essential hypert ension 401.[address] 15 Sep, 2007 Routine gener al medical [place] [address] facility V70.0 a nd Other and unspecified hype rlipidemia 272.[address] 05 Jul, 2007 Herpes zoster without mention [place] of complicatio n 053.9 [address] [facility] [email or web address] [address] Apr, [place] [address] [place] [address] [email or web address] [address] Feb, Unspecified s inusitis (chronic) [place] 473.9 and Othe r and unspecified [address] conjunctivitis [address] Feb, [place] [address] [place] [address]. Jan, Other and uns pecified [place] conjunctivitis 372.[address] 30 Nov, 2006 Routine gener al medical [place] examination at [facility] facility V70.0 ; Unspecified essential hypert ension 401.9 ; Pure hypercholes terolemia 272.0 and Anxiety stat e, unspecified 300.[address] Nov, Other and uns pecified [place] hyperlipidemia 272.4 ; 46[address] Unspecified esse ntial hypertension 401 .9 and Special screening for ma lignant neoplasm of pros phipps V76.[address] Sep, Bronchitis, n ot specified as [place] acute or chron [place] [address] Aug, [place] [address] [place] [address]. May, Unspecified e ssential [place] hypertension 4 01.9 ; Pure 17164 hypercholesterol emia 272.0 and Anxiety state, u nspecified 300.[address] Apr, [place] [address] [place] [address] 18 Apr, 2006 [place] [address] [place] [address] St. 31 Mar, 2006 [place] [address] [place] [address] St. 17 Mar, 2006 [place] [address] [place] [address] St. 20 Feb, 2006 Unspecified e ssential [place] hypertension 4 01.9 and Pure 70619 hypercholesterol emia 272.[address] 14 Feb, 2006 [place], [place] [address] [place] [address] St. 13 Jan, 2006 [place], [place] [address] [place] [address]. 05 Jan, 2006 Unspecified e ssential [place] hypertension 4 01.9 [address] [facility] [address] 03 Oct, 2005 Routine gener al medical [place] examination at [facility] facility V70.0 [facility] [address] 31 Aug, 2005 Elevated bloo d pressure reading [place] [address] hypertension 796 .2 and Pure hypercholesterol emia 272.0 IMMUNIZATIONS Vaccine Route Administration Date Status Tdap (Private) IM Intramuscular May 29, 2017 Administered Prevnar 13 (State Supply) IM Intramuscular May 22, 2015 Admin istered Influenza, High Dose (Private IM Intramuscular May 29, 2017 A dministered Supply) Influenza, High Dose (Private IM Intramuscular May 23, 2016 A dministered Supply) Pneumovax-Pneumococcal IM Intramuscular May 23, 2016 Administ ered polysaccharide PPV23 (Private) SOCIAL HISTORY Qualifiers Date Former Smoker REASON FOR REFERRAL FUNCTIONAL STATUS PLAN OF CARE Activity Details Follow Up 1 Year,prn Reason:CPX Future Test PSA Screening 20170602 Future Test Thyroid Stimulating Hormone w/Reflex 20170529 Future Test CBC AUTO DIFF (REFLEX TO MAN UAL) 20170529 Future Test Comprehensive Metabolic Pane l(CMP) 20170529 Future Test PSA Screening 20170529 Future Test Lipid Profile 43737374 VITAL SIGNS Temperature 97.2 degrees Fahrenheit 2017-05-29 [...] End Date Duration Stat us Date Saw Raymond Active Magnesium Active Citrate Losartan TAKE 1 [...] Body Site IMMUNIZATION ADMIN May 29, 2017 ADMN PNEUMCOC VAC NO FEE SCHED DAY May 23, 2016 PROS CANCER SCR; DIGTL RECTAL EXAM March 12, 2010 PROS CANCER SCR; DIGTL RECTAL EXAM March 12, 2011 TOBACCO NON-USER November 09, 2012 ASSAY TEST FOR BLOOD, FECAL March 24, 2012 IMMUNIZATION ADMIN May 23, 2016 IMMUNIZATION ADMIN, EACH ADD May 29, 2017 URINE-NO MICRO December 22, 2006 PROS CANCER SCR; DIGTL RECTAL EXAM December 30, 2007 URINE-NO MICRO January 30, 2009 MEASURE BLOOD OXYGEN LEVEL November 09, 2012 URINALYSIS, AUTO, W/O SCOPE March 24, 2012 URINE-NO MICRO March 12, 2011 PROS CANCER SCR; DIGTL RECTAL EXAM January 30, 2009 URINE-NO MICRO October 25, 2005 MICROALBUMIN, SEMIQUANT March 24, 2012 ANNUAL WELLNESS VST; PPS SUBSQT VST May 29, 2017 FLU VACC PRSV FREE INC ANTIG May 23, 2016 ANNUAL WELLNESS VST; PPS SUBSQT VST May 23, 2016 IMMUNIZATION ADMIN May 22, 2015 NEBULIZER TREATMENT November 09, 2012 PNEUMOCOCCAL VACC 13 JOEL IM May 22, 2015 Pneumovax-Pneumococcal polysaccharide PPV23 (Private) May 23, 016 TDAP VACCINE >7 IM May 29, 2017 FLU VACC PRSV FREE INC ANTIG May 29, 2017 ASSAY TEST FOR BLOOD, FECAL May 11, 2013 AT LEAST 1 RX TRANSMIT ERX SYS November 09, 2012 RESULTS Name Result Date Reference Range Comprehensive [...] multiply reported result by 1.21. Test Site [facility] Hemoglobin A1c 2017-05-29 Hgb A1c 5.4 [...] Est. NORMAL PLT Morph NORMAL Test Site [facility] PSA Screening 2017-05-29 PSA 4.530 <=4.000 Liver Function Test Panel 2016-06-12 (LFT) Tot.Prot. 6.8 6.3-8.2 Albumin 4.0 2.6-5.2 A/G Ratio 1.4 1.1-1.8 Alk Phos 62 38-126 AST 32 15-40 ALT 43 <=56 Bilirubin 0.6 0.2-1.3 Benjamin,Unconj 0.3 <=1.1 Benjamin,Conjug 0.0 <=0.3 Benjamin,Direct 0.3 0.0-0.4 Benjamin,Delta 0.3 0.0-0.6 Test Site [facility] PSA Screening 2016-06-12 PSA 0.739 <=4.000 [...] Est. NORMAL PLT Morph NORMAL Test Site [facility] Comprehensive Metabolic Panel 2016-02-06 Glucose 106 [...] multiply reported result by 1.21. Test Site [facility] Vitamin D, 25-Hydroxy IA 2014-10-24 VITAMIN D, 25-OH, TOTAL 39 30-100 VITAMIN D, 25-OH, D3 39 VITAMIN D, 25-OH, D2 <4 Vitamin B12 2014-10-24 Vit. B12 915.0 239.0-931. Occult Blood, Feces (FOBT) 2013-05-11 (FIT) Occ Bld Neg Test Site Specimen Type POC Influenza A+B ([facility] 2012-11-09 Sites Only) FLU A Ag Negative NEGATIVE FLU B Ag Negative NEGATIVE Test Site [facility] Occult Blood, Feces (FOBT) 2012-03-24 (FIT) [...] Neg UA/Micro Color Inf. Test Site [facility] 25829 Urinalysis, Routine (UA) Automated Interfer: UA Micro? [...] f/u, annual, annual, EST CARE Insurance Providers [facility] Member Patient Patient Patient Patient Patient Subscriber Subscriber Subscriber Group Insurance Plan Plan Plan Plan ID Relationship Address Phone Name Date of ID Name Date of No Type Insurance Insurance Insurance Coverage to Subscriber Address Phone Name Dates [facility] [phone] [facility] self Luis [id number] HEALTHCARE [id number] [facility] [address] OPTIONS1- SUPPLEMENT [id number] SUPPLEMENT AL AL MEDICARE A [phone] MEDICARE A self Luis [id number] AND [id number] [address] [facility] [place] [id number] [facility] [phone] ANTH self Luis [id number] [place] [address]
[2022-11-12] MEDS: Acetaminophen 325 MG TABLET 650 MG PO (02:12)
--- OUTSIDE RECORDS SUMMARY | 2022-11-12 02:30 | XMS_ITS ---
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 57607 [id number] prostate, unspecified, without urinary obstruction and other lower urinary tract symptoms [LUTS] Problem Anxiety state, 300.00 Active 14022 8003 unspecified Problem Routine general V70.0 Active 1626 55508 medical examination at health care facility Problem Disturbance of 782.0 Active 72400 5003 skin sensation Problem Pain in soft 729.5 Active 4427737 2 tissues of limb Problem Encounter for Z23 Active 128554 02 administration of vaccine Problem Other and 272.4 Active 13678249 unspecified hyperlipidemia Problem Elevated PSA R97.20 Active 4565285 05 Problem Other bursitis 727.3 Active 21660 003 disorders Problem Tinea unguium B35.1 Active 399784 005 Problem Encounter for Z00.00 Active 364866 007 general adult medical examination without abnormal findings Problem Essential I10 Active 93017246 (primary) hypertension Problem Screening for Z12.5 Active 611915 002 prostate cancer ALLERGIES Substance Reaction Event Type Date Status Sera dizziness Drug Allergy May, Active ENCOUNTERS Encounter Location Date Diagnosis [address] Sep, [place] [address] Sep, [place] [address] Jul, [place] [address] 18 Jul, 2017 [place] [address] [facility] [address] May, Elevated PSA R97.20 [place] [address] 05 May, 2017 Encounter for general adult [place] [address] abnormal finding s Z00.00 ; Encounter for ad ministration of vaccine Z23 ; Sc reening for prostate cancer Z12.5 and Essential (prima ry) hypertension I10 [address] 12 Aug, 2016 Essential (pr imary) [place], [place] hypertension I [address] 14 Jun, 2016 Essential (pr imary) [place] hypertension [place] [address] 20 May, 2016 Essential (pr imary) [place] hypertension I [address] Apr, Encounter for general adult [place] [address] abnormal finding s Z00.00 ; Essential (prima ry) hypertension I10 ; Tinea unguium B35.1 ; Encounter for screening for ma lignant neoplasm of pros phipps Z12.5 and Encounter for im munization Z23 [address] December, [place] [address] December, [place] [address] Oct, Essential (pr imary) [place] hypertension I [address] Oct, Essential (pr imary) [place] hypertension I [address] Apr, Routine gener al medical [place] examination at [facility] care [facility] facility V70.0 ; Unspecified essential hypert ension 401.9 ; Other and unspec ified hyperlipidemia 2 72.4 ; Other bursitis disorde rs 727.3 and Need for prophyl actic vaccination agai nst streptococcus pn eumoniae (pneumococcus) V 03.[address] Mar, Other bursiti s disorders 727.3 [place] [address] Mar, [place] [address] Jan, [place] [address] December, Unspecified e ssential [place] hypertension 4 01.[address] Nov, [place] [address] Oct, Unspecified e ssential [place] hypertension 4 01.9 ; [place] [address] soft tissues of limb 729.5 and Disturbance of s kin sensation 782.[address] Jun, [place] [address] Apr, Routine gener al medical [place] examination at [place] [address] facility V70.0 ; Unspecified essential hypert ension 401.9 ; Other and unspec ified hyperlipidemia 2 72.4 ; Hyperplasia of p rostate, unspecified, wit hout urinary obstruction and other lower urinary tract sy mptoms [LUTS] 600.90 ; Anxiety state, unspecified 300. 00 and Lateral epicondylitis of elbow 726.[address] Mar, [place] [address] Feb, [place] [address] December, [place] [address] December, [place] [address] December, Unspecified e ssential [place] hypertension 4 01.9 ; [address] Hyperplasia of p rostate, unspecified, wit hout urinary obstruction and other lower urinary tract sy mptoms [LUTS] 600.90 and Other and unspecified hype rlipidemia 272.[address] Nov, [place] [address] Nov, [place] Nov, Practice [address] 26 Oct, [address] 16 Aug, [address] 14 Aug, [address] 18 Jul, 2013 Routine gener al medical [place] examination at [place] [address] facility V70.0 ; Unspecified essential hypert ension 401.9 ; Other and unspec ified hyperlipidemia 2 72.4 and Hyperplasia of p rostate, unspecified, wit hout urinary obstruction and other lower urinary tract sy mptoms [LUTS] 600.[address] 17 Apr, 2013 Routine gener al medical [place] examination at [place] [address] facility V70.0 ; Unspecified essential hypert ension 401.9 ; Other and unspec ified hyperlipidemia 2 72.4 ; Anxiety state, unspecifi ed 300.00 and Hyperplasia of p rostate, unspecified, wit hout urinary obstruction and other lower urinary tract sy mptoms [LUTS] 600.[address] 18 Oct, 2012 Cough 786.2 a nd Rash and other [place] nonspecific sk in eruption 782.[address] [place] [address] 14 Oct, [address] 11 Jul, [address] 10 Mar, [address] Feb, Routine gener al medical [place] examination at [place] [address] facility V70.0 ; Screening for unspecified cond ition V82.9 ; Obesity, unspeci fied 278.00 ; Other and unspec ified hyperlipidemia 2 72.4 ; Unspecified esse ntial hypertension 401 .9 ; Anxiety state, unspecifi ed 300.00 and Hyperplasia of p rostate, unspecified, wit hout urinary obstruction and other lower urinary tract sy mptoms [LUTS] 600.[address] Jan, [place], [address] Sep, [place], [address] Jun, [place], [address] Mar, [place], [address] Feb, [place], [address] Feb, Routine gener al medical [place] examination at [place] [address] facility V70.0 ; Unspecified essential hypert ension 401.9 ; Other and unspec ified hyperlipidemia 2 72.4 ; Anxiety state, unspecifi ed 300.00 and Hyperplasia of p rostate, unspecified, wit hout urinary obstruction and other lower urinary tract sy mptoms [LUTS] 600.[address] Feb, Routine gener al medical [place] examination [place] [address] facility V[address] Jan, [place], [address] Nov, [place], [address] Nov, [place], [address] Nov, [place], [address] Nov, Swelling, mas s, or lump in [place] chest 786.6 ; Unspecified [facility] essential hypert ension 401.9 and Anxiety stat e, unspecified 300.[address] Sep, [place], [address] Feb, Routine gener al medical [place] examination [place] [address] facility V70.0 ; Unspecified essential hypert ension 401.9 and Other and un specified hyperlipidemia [address] Feb, [place], [facility] [address] Nov, [facility] [place], [address] Aug, [place], [address] 08 Jan, 2009 Routine gener al medical [place] examination [place] [address] facility V70.0 ; Unspecified essential hypert ension 401.9 and Other specif ied congenital anomaly of skin 757.[address] 04 Jan, 2009 Routine gener al medical [place] examination at [address] V70.0 ; Other and unspecified hype rlipidemia 272.4 and Unspec ified essential hypertension [address] December, Colitis, ente ritis, and [place] gastroenteriti s of presumed [address] infectious origi n 009.1 and Routine general medical examination at [facility] facility V70.[address] Oct, [place] [address] [place] [address] [employer] [address] Oct, [place] [address] [place] [address] Aug, [place], [place] [address] [place] [address] [employer] [address] Jul, Practice [place], [place] [address] [place] [address] [employer] [address] Jul, [place], [place] [address] [place] [address] [employer] [address] Jun, Practice [place], [place] [address] [place] [address] [employer] [address] Jun, Practice [place], [place] [address] [place] [address] [employer] [address] Mar, [place], [place] [address] [place] [address] [employer] [address] December, Routine gener al medical [place] examination [place] [address] facility V70.0 a nd Unspecified essential hypert ension 401.[address] 15 Sep, 2007 Routine gener al medical [place] examination [place] [address] facility V70.0 a nd Other and unspecified hype rlipidemia 272.[address] 05 Jul, 2007 Herpes zoster without mention [place] of complicatio n 053.9 [address] [facility] [employer] [address] Apr, Practice [place], [place] [address] [place] [address] [employer] [address] Feb, Unspecified s inusitis (chronic) [place], [place] 473.9 and Othe r and unspecified [address] conjunctivitis [address] Feb, [place], [place] [address] [place] [address]. Jan, Other and uns pecified [place] conjunctivitis 372.[address] 30 Nov, 2006 Routine gener al medical [place] examination at [facility] care [facility] facility V70.0 ; Unspecified essential hypert ension 401.9 ; Pure hypercholes terolemia 272.0 and Anxiety stat e, unspecified 300.[address] Nov, Other and uns pecified [place] hyperlipidemia 272.4 ; [address] Unspecified esse ntial hypertension 401 .9 and Special screening for ma lignant neoplasm of pros phipps V76.[address] Sep, Bronchitis, n ot specified as [facility] [place] acute [place] chron ic [address] Aug, [place], [place] [address] [place] [address]. May, Unspecified e ssential [place] hypertension 4 01.9 ; Pure [address] hypercholesterol emia 272.0 and Anxiety state, u nspecified 300.[address] Apr, [place], [place] [address] [place] [address] 18 Apr, 2006 [place], [place] [address] [place] [address] St. 31 Mar, 2006 [place], [place] [address] [place] [address] St. 17 Mar, 2006 [place] [address] [place] [address] St. 20 Feb, 2006 Unspecified e ssential [place] hypertension 4 01.9 and Pure [address] hypercholesterol emia 272.[address] 14 Feb, 2006 [place], [place] [address] [place] [address] St. 13 Jan, 2006 [place] [address] [place] [address]. 05 Jan, 2006 Unspecified e ssential [place] hypertension 4 01.9 [address] [facility] [address] 03 Oct, 2005 Routine gener al medical [place] examination at [facility] care [facility] facility V70.0 [facility] [address] 31 Aug, 2005 Elevated bloo d pressure reading [place], [place] [address] hypertension 796 .2 and Pure hypercholesterol emia [...] PSA Screening 20170529 Future Test Lipid Profile [id number] VITAL SIGNS Temperature 97.2 degrees Fahrenheit 2017-05-29 [...] End Date Duration Stat us Date Saw [place] Active Magnesium Active Citrate Losartan TAKE 1 [...] multiply reported result by 1.21. Test Site [facility] Hemoglobin A1c 2017-05-29 Hgb A1c 5.4 [...] Est. NORMAL PLT Morph NORMAL Test Site [facility] PSA Screening 2017-05-29 PSA 4.530 <=4.000 Liver Function Test Panel 2016-06-12 (LFT) Tot.Prot. 6.8 6.3-8.2 Albumin 4.0 2.6-5.2 A/G Ratio 1.4 1.1-1.8 Alk Phos 62 38-126 AST 32 15-40 ALT 43 <=56 Bilirubin 0.6 0.2-1.3 Benjamin,Unconj 0.3 <=1.1 Benjamin,Conjug 0.0 <=0.3 Benjamin,Direct 0.3 0.0-0.4 Benjamin,Delta 0.3 0.0-0.6 Test Site [facility] PSA Screening 2016-06-12 PSA 0.739 <=4.000 [...] Est. NORMAL PLT Morph NORMAL Test Site [facility] Comprehensive Metabolic Panel 2016-02-06 Glucose 106 [...] multiply reported result by 1.21. Test Site [facility] Vitamin D, 25-Hydroxy IA 2014-10-24 VITAMIN D, 25-OH, TOTAL 39 30-100 VITAMIN D, 25-OH, D3 39 VITAMIN D, 25-OH, D2 <4 Vitamin B12 2014-10-24 Vit. B12 915.0 239.0-931. Occult Blood, Feces (FOBT) 2013-05-11 (FIT) Occ Bld Neg Test Site Specimen Type POC Influenza A+B ([facility] 2012-11-09 Sites Only) FLU A Ag Negative NEGATIVE FLU B Ag Negative NEGATIVE Test Site [facility] Occult Blood, Feces (FOBT) 2012-03-24 (FIT) [...] Neg UA/Micro Color Inf. Test Site [facility] 95842 Urinalysis, Routine (UA) Automated Interfer: UA Micro? [...] f/u, annual, annual, EST CARE Insurance Providers [facility] Member Patient Patient Patient Patient Patient Subscriber Subscriber Subscriber Group Insurance Plan Plan Plan Plan ID Relationship Address Phone Name Date of ID Name Date of No Type Insurance Insurance Insurance Coverage to Subscriber Address Phone Name Dates ANTH [phone] [facility] self Luis [id number] [place] [address] [place] [address] [facility] [phone] [facility] self Luis [id number] [facility] [id number] OPTIONS1- SUPPLEMENT [address] SUPPLEMENT AL AL MEDICARE A [phone] MEDICARE A self Luis [id number] AND [id number] [address] [place] [facility] [place] [id number]
[2022-11-12] MEDS: oxyCODONE HCl Immed Release 5 MG TABLET PO (08:25)
[2022-11-12] MEDS: Lactated Ringers 1,000 ML 100 ML IVCONT (08:25)
--- NOTE | 2022-11-12 09:15 | PHA.MEDREC ---
Pharmacy Consult ? Medication Reconciliation Pharmacy has completed the medication reconciliation. Patient does not know dose of potassium or magensium. Louann Carbone, CarolD
--- NOTE | 2022-11-12 10:02 | PM.UROPN ---
Subjective Subjective Date of Service: 11/12/22 Interval history: Post extensive TURBT CBI with [address] way Plascencia catheter Gradually clearing May be able to DC later today if urine with minimal clots Physical Exam Vital Signs: Vital Signs: Last Vital Signs Temp 98 F 11/12/22 07:21 Pulse 78 11/12/22 07:21 Resp 16 11/12/22 07:21 BP 150/72 H 11/12/22 07:21 Pulse Ox 98 11/12/22 07:21 O2 Del Method 11/12/22 07:21 O2 Flow Rate 2 11/11/22 19:43 BMI result Body Mass Index 22.5 Const: General: cooperative, healthy appearing, comfortable and no acute distress Orientation/consciousness: patient oriented x3 HEENT: Face and sinus: Yes normal facial exam Mouth: moist mucous membranes Neck: Neck: Yes normal visual inspection, Yes full ROM and Yes trachea midline Chest: Chest palpation & inspection: normal inspection of the chest Resp: Effort & Inspection: normal respiratory effort, able to speak in complete sentences and no respiratory distress GI: Inspection: Yes normal to inspection Back/Spine/Pelvis: Cervical Spine: normal cervical lordosis Thoracic/Lumbar Spine: thoracic and lumbar spine normal to inspection Skin: General skin exam: no rashes or lesions noted Neuro: General: patient oriented x3, tone normal and moves all extremities Extrem: General: Yes normal to inspection and Yes capillary refill normal Urology Results Labs 11/11/22 19:01 Labs: Laboratory Results - last 24 hr 11/11/22 11/11/22 13:55 19:01 Hgb 13.1 L Hct 37.9 L COVID-19 ([facility]) Negative COVID-19 Clin Com See Note Progress Note: A&P Assessment and plan (1) Bladder cancer: Status: Acute Plan Continue CBI possible discharge later today Time Spent With Patient Time: Total time managing care of this patient today ____ minutes.
--- NOTE | 2022-11-12 14:49 | MHC.CM.PN ---
pt lives they are indepedent pt is covid vax has own ride home
--- NOTE | 2022-11-12 15:12 | HO.POSTANES ---
Post Anesthesia Evaluation Post Anesthesia Evaluation Vital Signs: Vital Signs Temp Pulse Resp BP Pulse Ox O2 Del Method 11/12/22 14:50 92 Room Air 11/12/22 14:23 92 Room Air 11/12/22 07:21 98 F 78 16 150/72 H 98 Room Air 11/12/22 03:20 97.7 F 77 15 145/74 H 97 Room Air Anesthesia: General Mental Status: Awake Pain Control: Satisfactory Nausea/Vomiting: None Hydration: Adequate Anesthesia-Related Issues: No Anes. Related Issues
[2022-11-12] MEDS: Acetaminophen 325 MG TABLET 975 MG PO ×2 (16:32→20:14)
--- NOTE | 2022-11-12 18:14 | PC.NURSE ---
Pt alert and oriented x4. Pt continues on continues bladder irrigation. 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 It is pink Lemonade color. Pt C/O 5/10, prn Oxycodone given this am. At 1600, pt ambulated with 1 assist and a walker all around the hallway. upon returning to the room, pt, C/O of pain. notified and ordered Tylenol 975mg and PRN Tramadol. Possible discharge home tomorrow
[2022-11-13] MEDS: traMADoL HCL 50 MG TABLET PO (02:10)
[2022-11-13 03:36] VITALS: BP 112/65; PULSE 71; RESP 18; TEMP 36.5; O2SAT 95
[2022-11-13 06:56] VITALS: BP 126/71; PULSE 70; RESP 18; TEMP 36.6; O2SAT 97
[2022-11-13] MEDS: Acetaminophen 325 MG TABLET 975 MG PO (09:29)
[2022-11-13] MEDS: 0.9 % Sodium Chloride Flush 3 ML SYRINGE IVFLUSH (09:31)
--- NOTE | 2022-11-13 13:12 | PM.UROPN ---
Subjective Subjective Date of Service: 11/13/22 Interval history: Improved hematuria DC today with catheter Physical Exam Vital Signs: Vital Signs: Last Vital Signs Temp 98 F 11/13/22 06:56 Pulse 70 11/13/22 06:56 Resp 18 11/13/22 06:56 BP 126/71 11/13/22 06:56 Pulse Ox 97 11/13/22 06:56 O2 Del Method 11/13/22 06:56 O2 Flow Rate 2 11/11/22 19:43 BMI result Body Mass Index 22.5 Const: General: cooperative, healthy appearing, comfortable and no acute distress Orientation/consciousness: patient oriented x3 HEENT: Face and sinus: Yes normal facial exam Mouth: moist mucous membranes Neck: Neck: Yes normal visual inspection, Yes full ROM and Yes trachea midline Chest: Chest palpation & inspection: normal inspection of the chest Resp: Effort & Inspection: normal respiratory effort, able to speak in complete sentences and no respiratory distress GI: Inspection: Yes normal to inspection Back/Spine/Pelvis: Cervical Spine: normal cervical lordosis Thoracic/Lumbar Spine: thoracic and lumbar spine normal to inspection Skin: General skin exam: no rashes or lesions noted Neuro: General: patient oriented x3, tone normal and moves all extremities Extrem: General: Yes normal to inspection and Yes capillary refill normal Urology Results Labs 11/11/22 19:01 Progress Note: A&P Assessment and plan (1) Bladder cancer: Status: Acute Plan DC home Time Spent With Patient Time: Total time managing care of this patient today ____ minutes.
--- NOTE | 2022-11-13 13:30 | MHC.CM.PN ---
IMM 11/12/22 Patient is discharged to home self care today. He has arranged for transportation home.
[2022-11-13 15:45] VITALS: BP 146/74; PULSE 68; RESP 17; TEMP 36.9; O2SAT 96
--- NOTE | 2022-12-13 15:02 | P.DS_ITS ---
DS: Providers Provider Date of Service: 11/15/22 Date of admission: 11/11/22 18:30 Primary care physician: Unknown Physician DS: Diagnosis Discharge Diagnosis (1) Bladder cancer: Status: Acute DS: Summary Hospital Course Hospital Course: Underwent TURBT large Had oozing from bladder and required CBI - took 3 days follow-up bladder bleeding to resolve Admitted to hospital while. Bladder ooze settled. Status at Discharge Functional status at discharge: independent ambulation Overall status at discharge: patient is back to baseline Time Spent with Patient Time attestation: Total time managing care of this patient today ____ minutes. Discharge coordination time: Less than 30 minutes Quality: Safe Use of Opioids Does Pt have an Active Cancer Diagnosis on the Problem List?: Yes Opioid Measure Date for [facility] Report: 11/13/22 Opioid Measure Time for [facility] Report: 15:03 Quality: Stroke Does the patient have a stroke diagnosis?: No Physical Exam Vital Signs: Vital Signs: Last Vital Signs Temp 98.5 F 11/13/22 15:45 Pulse 68 11/13/22 15:45 Resp 17 11/13/22 15:45 BP 146/74 H 11/13/22 15:45 Pulse Ox 96 11/13/22 15:45 O2 Del Method Room Air 11/13/22 15:45 O2 Flow Rate 2 11/11/22 19:43 BMI result Body Mass Index 22.5 Const: General: cooperative, healthy appearing, comfortable and no acute distress Orientation/consciousness: patient oriented x3 HEENT: Face and sinus: Yes normal facial exam Mouth: moist mucous membranes Neck: Neck: Yes normal visual inspection, Yes full ROM and Yes trachea midline Chest: Chest palpation & inspection: normal inspection of the chest Resp: Effort & Inspection: normal respiratory effort, able to speak in complete sentences and no respiratory distress GI: Inspection: Yes normal to inspection Back/Spine/Pelvis: Cervical Spine: normal cervical lordosis Thoracic/Lumbar Spine: thoracic and lumbar spine normal to inspection Skin: General skin exam: no rashes or lesions noted Neuro: General: patient oriented x3, tone normal and moves all extremities Extrem: General: Yes normal to inspection and Yes capillary refill normal DS: Data Data Completed and Pending Completed studies during hospitalization [Text1]: Pending at discharge 11/11/22 18:18 Surgical [PTH] Routine Procedures Dilation of Bilateral Ureters with Intraluminal Device, Via Natural or Artificial Opening Endoscopic (11/11/22) Excision of Bladder, Via Natural or Artificial Opening Endoscopic (11/11/22) Fluoroscopy of Kidneys, Ureters and Bladder (11/11/22) Discharge Plan Discharge Anticipated Discharge Date/Time: 11/13/22 13:14 Patient Disposition: Home, Self-Care Discharge Diagnosis: hematuria following extensive TURBT Referrals: Ricky Mckeon MD [Physician] - 3-5 Days (catheter removal) Physician,Namita J [Primary Care Provider] - None Discharge Medications: Continued cyanocobalamin (vitamin B-12) [Vitamin B-12] 1,000 mcg Tablet 1,000 mcg PO DAILY magnesium oxide 400 mg magnesium Tablet 400 mg PO BID multivitamin Tablet 1 tab PO DAILY potassium chloride PO BID finasteride 5 mg tablet 5 mg PO DAILY sertraline 50 mg tablet 50 mg PO DAILY No Action losartan 50 mg tablet 25 mg PO QAM acetaminophen 650 mg Tablet Extended Release 650 mg PO Q12H PRN (Reason: Pain) melatonin 5 mg Tablet 5 mg PO BEDTIME cholecalciferol (vitamin D3) 25 mcg (1,000 unit) Tablet 25 mcg PO DAILY doxycycline monohydrate 100 mg Capsule 100 mg PO Q12H Qty: 28 0RF Discharge Orders: Discharge Order (Routine); Ordered 11/13/22 Ordered By: Ricky Mckeon Diet: Advance to usual diet Activity on Discharge: As tolerated Stand Alone Forms: Patient Portal Discharge page Activity Restrictions/Additional Instructions: brewster catheter to bag f/u in 3-5 days for catheter removal Care Plan Goals: bladder cancer Health Concerns: bladder cancer Plan of Treatment: bladder cancer Assessment: bladder cancer Patient Instructions: Transurethral Resection of Bladder Tumors (DC) Discharge Date/Time: 11/13/22 16:42
== END 2022-11-13 16:42 | disposition home or self-care (01) | DRG 657 ==
LOC: HO.S3 11-12 02:29
PROVIDERS: Anesthesiology; Nurse Practitioner; Admitting Provider Urology; Visit Provider Urology
PROC: 0TBB8ZZ Excision of Bladder, Via Natural or Artificial Opening Endoscopic (ICD-10-PCS; principal; 2022-11-11 15:20)
DX: C67.9 Malignant neoplasm of bladder, unspecified (principal); N13.30 Unspecified hydronephrosis; R31.0 Gross hematuria; Z20.822 Contact with and (suspected) exposure to COVID-19; Z79.899 Other long term (current) drug therapy
CPT/HCPCS: 36415; 85014; 85018; 87635; 88307; C1758; C1769; C2617; J1100; J1956; J2250; J2405; J3010; Q9967

== ENCOUNTER → 2022-11-15 10:46 | Outpatient (BNVA) | payer MEDICARE, SELFPAY | PROVIDERS: PCP Internal Medicine; Visit Provider Urology ==

== ENCOUNTER → 2022-11-29 08:56 | Outpatient (BNVA) | payer MEDICARE, SELFPAY | PROVIDERS: PCP Internal Medicine; Visit Provider Urology | DX: C67.9 Malignant neoplasm of bladder, unspecified (principal); R33.9 Retention of urine, unspecified | CPT/HCPCS: 51700; 51702; 99212 ==

== ENCOUNTER 2022-12-03 17:27 | Emergency (ER) | payer MEDICARE, SELFPAY ==
--- NOTE | 2022-12-03 17:47 | ED.GENADULT ---
HPI - General Adult General Chief complaint: General Medical <BINH Mccullough - Last Filed: 12/04/22 16:18> Stated complaint: infection? <BINH Mccullough - Last Filed: 12/04/22 16:18> Time Seen by Provider: 12/03/22 21:26 <BINH Mccullough - Last Filed: 12/04/22 16:18> Source: patient <David Johnson MD - Last Filed: 12/03/22 23:27> Mode of arrival: ambulatory <David Johnson MD - Last Filed: 12/03/22 23:27> Limitations: no limitations <David Johnson MD - Last Filed: 12/03/22 23:27> History of Present Illness HPI narrative: Patient with history of bladder cancer status post surgery 3 weeks ago his Brewster catheter since yesterday been having chills no fever no nausea no vomiting feels weak. Urine is clear no blood or pus in the urine no other symptoms no other family members sick <David Johnson MD - Last Filed: 12/03/22 23:27> Related Data Home medications: Home Medications Medication Instructions Recorded Confirmed finasteride 5 mg tablet 5 mg PO DAILY 10/29/22 11/12/22 losartan 25 mg tablet 25 mg PO DAILY 10/29/22 11/12/22 sertraline 50 mg tablet 50 mg PO DAILY 10/29/22 11/12/22 Vitamin D3 800 units PO DAILY 11/08/22 11/12/22 cyanocobalamin (vitamin B-12) 1,000 mcg PO DAILY 11/08/22 11/08/22 1,000 mcg tablet (Vitamin B-12) magnesium oxide mg 11/08/22 multivitamin 1 tab PO DAILY 11/12/22 11/12/22 potassium chloride PO DAILY 11/12/22 Previous Rx's Medication Instructions Recorded sulfamethoxazole 400 1 tab PO DAILY #10 tabs 11/13/22 mg-trimethoprim 80 mg tablet (Bactrim) phenazopyridine 100 mg tablet 100 mg PO TID PRN Spasm 4 days #20 11/16/22 (Pyridium) tabs ciprofloxacin HCl 500 mg tablet 500 mg PO BID #20 tabs 12/03/22 (Cipro) <BINH Mccullough - Last Filed: 12/04/22 16:18> Allergies/adverse reactions: Allergies Allergy/AdvReac Type Severity Reaction Status Date / Time bee pollen [bee stings] Allergy Anaphylaxis Verified 11/29/22 09:06 <BINH Mccullough - Last Filed: 12/04/22 16:18> Review of Systems Review of Systems: Yes all other systems are reviewed and are negative <David Johnson MD - Last Filed: 12/03/22 23:27> [facility] Past Medical History Medical History: Medical History Anxiety Bladder mass BPH (benign prostatic hyperplasia) EtOH dependence HTN (hypertension) OA (osteoarthritis) <BINH Mccullough - Last Filed: 12/04/22 16:18> Surgical History: Surgical History History of tonsillectomy <BINH Mccullough - Last Filed: 12/04/22 16:18> Social History Social History: Social History Alcohol intake: never Patient Tobacco Use Status: Never used Tobacco Smoked in Last 30 Days: No Use of substances other than those prescribed or required for medical reasons: No Advance Directives: No Advance Directives Information Provided: No service: No <BINH Mccullough - Last Filed: 12/04/22 16:18> Physical Exam ED Vital Signs: Vital Signs - 24 hr 12/03/22 17:48 12/03/22 20:54 Temperature 98.0 F 99.0 F Pulse Rate 102 H 93 Respiratory Rate 18 17 Blood Pressure 143/71 H 169/73 H Pulse Oximetry 95 95 Oxygen Delivery Method Room Air Room Air BMI result Body Mass Index 22.4 <BINH Mccullough - Last Filed: 12/04/22 16:18> Vital Signs - 24 hr 12/03/22 17:48 12/03/22 20:54 Temperature 98.0 F 99.0 F Pulse Rate 102 H 93 Respiratory Rate 18 17 Blood Pressure 143/71 H 169/73 H Pulse Oximetry 95 95 Oxygen Delivery Method Room Air Room Air BMI result Body Mass Index 22.4 <David Johnson MD - Last Filed: 12/03/22 23:27> Vital Signs - 24 hr 12/03/22 17:48 12/03/22 20:54 Temperature 98.0 F 99.0 F Pulse Rate 102 H 93 Respiratory Rate 18 17 Blood Pressure 143/71 H 169/73 H Pulse Oximetry 95 95 Oxygen Delivery Method Room Air Room Air BMI result Body Mass Index 22.4 <BINH Ziegler - Last Filed: 12/05/22 18:50> Appearance: Alert. Oriented X3. No acute distress. Eyes: No pallor or icterus ENT: Pharynx normal. Oral Mucosa moist Neck: Normal inspection. Neck supple. CVS: Normal heart rate and rhythm. Pulses normal. Respiratory: No respiratory distress. Equal air entry bilateral, no wheezing/rales/rhonchi Abdomen: Soft and nontender. Bowel sounds are present, no mass palpable, no CVA tenderness Skin: Skin warm and dry. Normal skin color. Normal skin turgor. Extremities: No lower extremity edema. No calf tenderness Neuro: Oriented X 3. No motor deficit. <David Johnson MD - Last Filed: 12/03/22 23:27> Course Course Course Narrative: RME--72yo M w/PMHx anxiety, BPH, HTN, OA, bladder CA s/p TURBT by Dr. Mckeon on 11/11/22 with indwelling brewster catheter c/o generalized weakness, fatigue, chills, subj fever, nausea and emesis since last night. Denies wearing brewster bag, states empties q3hrs via valve. Denies CP/SOB, abd pain, dysuria, hematuria Labs, UA, lactic/blood cx ordered <BINH Mccullough - Last Filed: 12/04/22 16:18> Reevaluation(s) Reevaluation #1: 12/04/22--Received phone call from lab 2/ 2 sets of preliminary blood cultures grew Gram-positive cocci in clusters. Called listed number left voicemail <BINH Mccullough - Last Filed: 12/04/22 16:18> Reevaluation #2: patient with coag negative staph in the blood x2 from his ER visit on 12/03 - called and informed patient of results. he is still feeling poorly. he was encouarged to come back to the ER DILEEP for IV abx. <BINH Ziegler - Last Filed: 12/05/22 18:50> Time: 18:49 <BINH Ziegler - Last Filed: 12/05/22 18:50> Medications Administered Discontinued Medications Generic Name Dose Route Start Last Admin Trade Name Freq PRN Reason Stop Dose Admin Levofloxacin 500 mg 12/03/22 21:32 12/03/22 23:07 Levofloxacin 500 Mg Tablet PO 12/03/22 21:33 500 mg ONCE ONE Administration <BINH Mccullough - Last Filed: 12/04/22 16:18> Medications Administered Discontinued Medications Generic Name Dose Route Start Last Admin Trade Name Freq PRN Reason Stop Dose Admin Levofloxacin 500 mg 12/03/22 21:32 12/03/22 23:07 Levofloxacin 500 Mg Tablet PO 12/03/22 21:33 500 mg ONCE ONE Administration <David Johnson MD - Last Filed: 12/03/22 23:27> Medications Administered Discontinued Medications Generic Name Dose Route Start Last Admin Trade Name Freq PRN Reason Stop Dose Admin Levofloxacin 500 mg 12/03/22 21:32 12/03/22 23:07 Levofloxacin 500 Mg Tablet PO 12/03/22 21:33 500 mg ONCE ONE Administration <BINH Ziegler - Last Filed: 12/05/22 18:50> Medical Decision Making Medical Decision Making MDM Narrative: Patient with UTI with Brewster catheter which was changed 1 week ago with no history of bacteremia or ESBL discharge patient home on Cipro patient feeling better after taking 1 tablet of Levaquin in the ER <David Johnson MD - Last Filed: 12/03/22 23:27> Lab Data MDM Lab Attestation statement: I reviewed the patient's lab results. <David Johnson MD - Last Filed: 12/03/22 23:27> Result Diagrams: 12/03/22 18:19 12/03/22 18:19 <BINH Mccullough - Last Filed: 12/04/22 16:18> Labs: Lab Results 12/03/22 12/03/22 12/03/22 Range/Units 18:19 18:19 18:19 WBC 12.2 H (4.8-10.8) X10*3/uL RBC 3.49 L (4.60-5.80) X10*6/uL Hgb 11.4 L (14.0-18.0) g/dl Hct 33.3 L (42.0-52.0) % MCV 95.4 (80.0-98.0) fL MCH 32.7 (27.0-33.0) pg MCHC 34.2 (31.0-36.0) g/dl RDW 12.7 (11.0-16.0) % Plt Count 197 (160-400) X10*3/uL MPV 9.2 L (9.4-12.4) fL Immature Gran % (Auto) 0.5 H (0.0-0.4) % Neut % (Auto) 86.1 H (45-73) % Lymph % (Auto) 6.2 L (20-40) % [place] % (Auto) 6.7 (2-11) % Eos % (Auto) 0.1 (0-4) % Baso % (Auto) 0.4 (0-2) % Lymph # (Auto) 0.8 L (1.2-4.9) X10*3/uL [place] # (Auto) 0.8 (0.1-1.2) X10*3/uL Eos # (Auto) 0.0 (0.0-0.4) X10*3/uL Baso # (Auto) 0.1 (0.0-0.2) X10*3/uL Abs Immat Gran (auto) 0.06 H (0.00-0.03) X10*3/uL Absolute Neuts (auto) 10.5 H (2.0-8.3) x10*3/uL Absolute Nucleated RBC 0.000 (0.0-0.012) X10*3/uL Nucleated RBC % (auto) 0.0 (0.0-0.2) /100WBC Sodium 134 L (135-145) mmol/L Potassium 4.1 (3.3-5.1) mmol/L Chloride 101 (96-108) mmol/L Carbon Dioxide 24 (22-29) mmol/L Anion Gap 13 (12-20) BUN 20 H (9-16) mg/dL Creatinine 1.07 (0.5-1.4) mg/dL Estim Creat Clear Calc 71.5 Estimated GFR > 60 Random Glucose 123 H (60-115) mg/dL Lactic Acid 0.8 (0.5-2.0) mmol/L Calcium 8.4 (8.4-10.2) mg/dL Magnesium 2.0 (1.6-2.6) mg/dL Total Bilirubin 0.8 (0.0-1.0) mg/dL Direct Bilirubin 0.2 (0.0-0.5) mg/dL AST 20 (5-37) U/L ALT 22 (0-40) U/L Alkaline Phosphatase 46 (39-117) U/L Total Protein 6.0 L (6.5-8.0) g/dL Albumin 3.8 (3.5-5.0) g/dL Urine Color Urine Appearance Urine pH (5.0-9.0) Ur Specific [place] (1.005-1.025) Urine Protein (Neg-Trace) mg/dL Urine Glucose (UA) (Negative) mg/dL Urine Ketones (Negative) mg/dL Urine Blood (Negative) Urine Nitrite (Negative) Ur Leukocyte Esterase (Negative) Urine RBC (0-2) /HPF Urine WBC (0-5) /HPF Ur Squamous Epith Cells (0-2) /HPF Urine Bacteria (None Seen) Hyaline Casts (0-2) /LPF COVID-19 (AME) (Negative) COVID-19 Clin Com Influenza Type A (SIMRAN) (Negative) Influenza Type B (SIMRAN) (Negative) Influenza A & B Note 12/03/22 12/03/22 12/03/22 Range/Units 18:19 18:19 22:38 WBC (4.8-10.8) X10*3/uL RBC (4.60-5.80) X10*6/uL Hgb (14.0-18.0) g/dl Hct (42.0-52.0) % MCV (80.0-98.0) fL MCH (27.0-33.0) pg MCHC (31.0-36.0) g/dl RDW (11.0-16.0) % Plt Count (160-400) X10*3/uL MPV (9.4-12.4) fL Immature Gran % (Auto) (0.0-0.4) % Neut % (Auto) (45-73) % Lymph % (Auto) (20-40) % [place] % (Auto) (2-11) % Eos % (Auto) (0-4) % Baso % (Auto) (0-2) % Lymph # (Auto) (1.2-4.9) X10*3/uL [place] # (Auto) (0.1-1.2) X10*3/uL Eos # (Auto) (0.0-0.4) X10*3/uL Baso # (Auto) (0.0-0.2) X10*3/uL Abs Immat Gran (auto) (0.00-0.03) X10*3/uL Absolute Neuts (auto) (2.0-8.3) x10*3/uL Absolute Nucleated RBC (0.0-0.012) X10*3/uL Nucleated RBC % (auto) (0.0-0.2) /100WBC Sodium (135-145) mmol/L Potassium (3.3-5.1) mmol/L Chloride (96-108) mmol/L Carbon Dioxide (22-29) mmol/L Anion Gap (12-20) BUN (9-16) mg/dL Creatinine (0.5-1.4) mg/dL Estim Creat Clear Calc Estimated GFR Random Glucose (60-115) mg/dL Lactic Acid (0.5-2.0) mmol/L Calcium (8.4-10.2) mg/dL Magnesium (1.6-2.6) mg/dL Total Bilirubin (0.0-1.0) mg/dL Direct Bilirubin (0.0-0.5) mg/dL AST (5-37) U/L ALT (0-40) U/L Alkaline Phosphatase (39-117) U/L Total Protein (6.5-8.0) g/dL Albumin (3.5-5.0) g/dL Urine Color Yellow Urine Appearance Clear Urine pH 6.5 (5.0-9.0) Ur Specific [place] 1.010 (1.005-1.025) Urine Protein 30 (1+) H (Neg-Trace) mg/dL Urine Glucose (UA) Negative (Negative) mg/dL Urine Ketones 15 (Negative) mg/dL Urine Blood Moderate (2+) H (Negative) Urine Nitrite Positive H (Negative) Ur Leukocyte Esterase Moderate (2+) H (Negative) Urine RBC >20 H (0-2) /HPF Urine WBC 11-20 H (0-5) /HPF Ur Squamous Epith Cells 0-2 (0-2) /HPF Urine Bacteria Trace (None Seen) Hyaline Casts 0-2 (0-2) /LPF COVID-19 (AME) Negative (Negative) COVID-19 Clin Com See Note Influenza Type A (SIMRAN) Negative (Negative) Influenza Type B (SIMRAN) Negative (Negative) Influenza A & B Note See Note <BINH Mccullough - Last Filed: 12/04/22 16:18> Lab Results 12/03/22 12/03/22 12/03/22 Range/Units 18:19 18:19 18:19 WBC 12.2 H (4.8-10.8) X10*3/uL RBC 3.49 L (4.60-5.80) X10*6/uL Hgb 11.4 L (14.0-18.0) g/dl Hct 33.3 L (42.0-52.0) % MCV 95.4 (80.0-98.0) fL MCH 32.7 (27.0-33.0) pg MCHC 34.2 (31.0-36.0) g/dl RDW 12.7 (11.0-16.0) % Plt Count 197 (160-400) X10*3/uL MPV 9.2 L (9.4-12.4) fL Immature Gran % (Auto) 0.5 H (0.0-0.4) % Neut % (Auto) 86.1 H (45-73) % Lymph % (Auto) 6.2 L (20-40) % [place] % (Auto) 6.7 (2-11) % Eos % (Auto) 0.1 (0-4) % Baso % (Auto) 0.4 (0-2) % Lymph # (Auto) 0.8 L (1.2-4.9) X10*3/uL [place] # (Auto) 0.8 (0.1-1.2) X10*3/uL Eos # (Auto) 0.0 (0.0-0.4) X10*3/uL Baso # (Auto) 0.1 (0.0-0.2) X10*3/uL Abs Immat Gran (auto) 0.06 H (0.00-0.03) X10*3/uL Absolute Neuts (auto) 10.5 H (2.0-8.3) x10*3/uL Absolute Nucleated RBC 0.000 (0.0-0.012) X10*3/uL Nucleated RBC % (auto) 0.0 (0.0-0.2) /100WBC Sodium 134 L (135-145) mmol/L Potassium 4.1 (3.3-5.1) mmol/L Chloride 101 (96-108) mmol/L Carbon Dioxide 24 (22-29) mmol/L Anion Gap 13 (12-20) BUN 20 H (9-16) mg/dL Creatinine 1.07 (0.5-1.4) mg/dL Estim Creat Clear Calc 71.5 Estimated GFR > 60 Random Glucose 123 H (60-115) mg/dL Lactic Acid 0.8 (0.5-2.0) mmol/L Calcium 8.4 (8.4-10.2) mg/dL Magnesium 2.0 (1.6-2.6) mg/dL Total Bilirubin 0.8 (0.0-1.0) mg/dL Direct Bilirubin 0.2 (0.0-0.5) mg/dL AST 20 (5-37) U/L ALT 22 (0-40) U/L Alkaline Phosphatase 46 (39-117) U/L Total Protein 6.0 L (6.5-8.0) g/dL Albumin 3.8 (3.5-5.0) g/dL Urine Color Urine Appearance Urine pH (5.0-9.0) Ur Specific [place] (1.005-1.025) Urine Protein (Neg-Trace) mg/dL Urine Glucose (UA) (Negative) mg/dL Urine Ketones (Negative) mg/dL Urine Blood (Negative) Urine Nitrite (Negative) Ur Leukocyte Esterase (Negative) Urine RBC (0-2) /HPF Urine WBC (0-5) /HPF Ur Squamous Epith Cells (0-2) /HPF Urine Bacteria (None Seen) Hyaline Casts (0-2) /LPF COVID-19 (AME) (Negative) COVID-19 Clin Com Influenza Type A (SIMRAN) (Negative) Influenza Type B (SIMRAN) (Negative) Influenza A & B Note 12/03/22 12/03/22 12/03/22 Range/Units 18:19 18:19 22:38 WBC (4.8-10.8) X10*3/uL RBC (4.60-5.80) X10*6/uL Hgb (14.0-18.0) g/dl Hct (42.0-52.0) % MCV (80.0-98.0) fL MCH (27.0-33.0) pg MCHC (31.0-36.0) g/dl RDW (11.0-16.0) % Plt Count (160-400) X10*3/uL MPV (9.4-12.4) fL Immature Gran % (Auto) (0.0-0.4) % Neut % (Auto) (45-73) % Lymph % (Auto) (20-40) % [place] % (Auto) (2-11) % Eos % (Auto) (0-4) % Baso % (Auto) (0-2) % Lymph # (Auto) (1.2-4.9) X10*3/uL [place] # (Auto) (0.1-1.2) X10*3/uL Eos # (Auto) (0.0-0.4) X10*3/uL Baso # (Auto) (0.0-0.2) X10*3/uL Abs Immat Gran (auto) (0.00-0.03) X10*3/uL Absolute Neuts (auto) (2.0-8.3) x10*3/uL Absolute Nucleated RBC (0.0-0.012) X10*3/uL Nucleated RBC % (auto) (0.0-0.2) /100WBC Sodium (135-145) mmol/L Potassium (3.3-5.1) mmol/L Chloride (96-108) mmol/L Carbon Dioxide (22-29) mmol/L Anion Gap (12-20) BUN (9-16) mg/dL Creatinine (0.5-1.4) mg/dL Estim Creat Clear Calc Estimated GFR Random Glucose (60-115) mg/dL Lactic Acid (0.5-2.0) mmol/L Calcium (8.4-10.2) mg/dL Magnesium (1.6-2.6) mg/dL Total Bilirubin (0.0-1.0) mg/dL Direct Bilirubin (0.0-0.5) mg/dL AST (5-37) U/L ALT (0-40) U/L Alkaline Phosphatase (39-117) U/L Total Protein (6.5-8.0) g/dL Albumin (3.5-5.0) g/dL Urine Color Yellow Urine Appearance Clear Urine pH 6.5 (5.0-9.0) Ur Specific [place] 1.010 (1.005-1.025) Urine Protein 30 (1+) H (Neg-Trace) mg/dL Urine Glucose (UA) Negative (Negative) mg/dL Urine Ketones 15 (Negative) mg/dL Urine Blood Moderate (2+) H (Negative) Urine Nitrite Positive H (Negative) Ur Leukocyte Esterase Moderate (2+) H (Negative) Urine RBC >20 H (0-2) /HPF Urine WBC 11-20 H (0-5) /HPF Ur Squamous Epith Cells 0-2 (0-2) /HPF Urine Bacteria Trace (None Seen) Hyaline Casts 0-2 (0-2) /LPF COVID-19 (AME) Negative (Negative) COVID-19 Clin Com See Note Influenza Type A (SIMRAN) Negative (Negative) Influenza Type B (SIMRAN) Negative (Negative) Influenza A & B Note See Note <David Johnson MD - Last Filed: 12/03/22 23:27> Lab Results 12/03/22 12/03/22 12/03/22 Range/Units 18:19 18:19 18:19 WBC 12.2 H (4.8-10.8) X10*3/uL RBC 3.49 L (4.60-5.80) X10*6/uL Hgb 11.4 L (14.0-18.0) g/dl Hct 33.3 L (42.0-52.0) % MCV 95.4 (80.0-98.0) fL MCH 32.7 (27.0-33.0) pg MCHC 34.2 (31.0-36.0) g/dl RDW 12.7 (11.0-16.0) % Plt Count 197 (160-400) X10*3/uL MPV 9.2 L (9.4-12.4) fL Immature Gran % (Auto) 0.5 H (0.0-0.4) % Neut % (Auto) 86.1 H (45-73) % Lymph % (Auto) 6.2 L (20-40) % [place] % (Auto) 6.7 (2-11) % Eos % (Auto) 0.1 (0-4) % Baso % (Auto) 0.4 (0-2) % Lymph # (Auto) 0.8 L (1.2-4.9) X10*3/uL [place] # (Auto) 0.8 (0.1-1.2) X10*3/uL Eos # (Auto) 0.0 (0.0-0.4) X10*3/uL Baso # (Auto) 0.1 (0.0-0.2) X10*3/uL Abs Immat Gran (auto) 0.06 H (0.00-0.03) X10*3/uL Absolute Neuts (auto) 10.5 H (2.0-8.3) x10*3/uL Absolute Nucleated RBC 0.000 (0.0-0.012) X10*3/uL Nucleated RBC % (auto) 0.0 (0.0-0.2) /100WBC Sodium 134 L (135-145) mmol/L Potassium 4.1 (3.3-5.1) mmol/L Chloride 101 (96-108) mmol/L Carbon Dioxide 24 (22-29) mmol/L Anion Gap 13 (12-20) BUN 20 H (9-16) mg/dL Creatinine 1.07 (0.5-1.4) mg/dL Estim Creat Clear Calc 71.5 Estimated GFR > 60 Random Glucose 123 H (60-115) mg/dL Lactic Acid 0.8 (0.5-2.0) mmol/L Calcium 8.4 (8.4-10.2) mg/dL Magnesium 2.0 (1.6-2.6) mg/dL Total Bilirubin 0.8 (0.0-1.0) mg/dL Direct Bilirubin 0.2 (0.0-0.5) mg/dL AST 20 (5-37) U/L ALT 22 (0-40) U/L Alkaline Phosphatase 46 (39-117) U/L Total Protein 6.0 L (6.5-8.0) g/dL Albumin 3.8 (3.5-5.0) g/dL Urine Color Urine Appearance Urine pH (5.0-9.0) Ur Specific [place] (1.005-1.025) Urine Protein (Neg-Trace) mg/dL Urine Glucose (UA) (Negative) mg/dL Urine Ketones (Negative) mg/dL Urine Blood (Negative) Urine Nitrite (Negative) Ur Leukocyte Esterase (Negative) Urine RBC (0-2) /HPF Urine WBC (0-5) /HPF Ur Squamous Epith Cells (0-2) /HPF Urine Bacteria (None Seen) Hyaline Casts (0-2) /LPF COVID-19 (AME) (Negative) COVID-19 Clin Com Influenza Type A (SIMRAN) (Negative) Influenza Type B (SIMRAN) (Negative) Influenza A & B Note 12/03/22 12/03/22 12/03/22 Range/Units 18:19 18:19 22:38 WBC (4.8-10.8) X10*3/uL RBC (4.60-5.80) X10*6/uL Hgb (14.0-18.0) g/dl Hct (42.0-52.0) % MCV (80.0-98.0) fL MCH (27.0-33.0) pg MCHC (31.0-36.0) g/dl RDW (11.0-16.0) % Plt Count (160-400) X10*3/uL MPV (9.4-12.4) fL Immature Gran % (Auto) (0.0-0.4) % Neut % (Auto) (45-73) % Lymph % (Auto) (20-40) % [place] % (Auto) (2-11) % Eos % (Auto) (0-4) % Baso % (Auto) (0-2) % Lymph # (Auto) (1.2-4.9) X10*3/uL [place] # (Auto) (0.1-1.2) X10*3/uL Eos # (Auto) (0.0-0.4) X10*3/uL Baso # (Auto) (0.0-0.2) X10*3/uL Abs Immat Gran (auto) (0.00-0.03) X10*3/uL Absolute Neuts (auto) (2.0-8.3) x10*3/uL Absolute Nucleated RBC (0.0-0.012) X10*3/uL Nucleated RBC % (auto) (0.0-0.2) /100WBC Sodium (135-145) mmol/L Potassium (3.3-5.1) mmol/L Chloride (96-108) mmol/L Carbon Dioxide (22-29) mmol/L Anion Gap (12-20) BUN (9-16) mg/dL Creatinine (0.5-1.4) mg/dL Estim Creat Clear Calc Estimated GFR Random Glucose (60-115) mg/dL Lactic Acid (0.5-2.0) mmol/L Calcium (8.4-10.2) mg/dL Magnesium (1.6-2.6) mg/dL Total Bilirubin (0.0-1.0) mg/dL Direct Bilirubin (0.0-0.5) mg/dL AST (5-37) U/L ALT (0-40) U/L Alkaline Phosphatase (39-117) U/L Total Protein (6.5-8.0) g/dL Albumin (3.5-5.0) g/dL Urine Color Yellow Urine Appearance Clear Urine pH 6.5 (5.0-9.0) Ur Specific [place] 1.010 (1.005-1.025) Urine Protein 30 (1+) H (Neg-Trace) mg/dL Urine Glucose (UA) Negative (Negative) mg/dL Urine Ketones 15 (Negative) mg/dL Urine Blood Moderate (2+) H (Negative) Urine Nitrite Positive H (Negative) Ur Leukocyte Esterase Moderate (2+) H (Negative) Urine RBC >20 H (0-2) /HPF Urine WBC 11-20 H (0-5) /HPF Ur Squamous Epith Cells 0-2 (0-2) /HPF Urine Bacteria Trace (None Seen) Hyaline Casts 0-2 (0-2) /LPF COVID-19 (AME) Negative (Negative) COVID-19 Clin Com See Note Influenza Type A (SIMRAN) Negative (Negative) Influenza Type B (SIMRAN) Negative (Negative) Influenza A & B Note See Note <BINH Ziegler - Last Filed: 12/05/22 18:50> Discharge Plan Discharge Clinical Impression: Acute UTI <BINH Mccullough Last Filed: 12/04/22 16:18> Patient Disposition: Home, Self-Care <BINH Mccullough Last Filed: 12/04/22 16:18> Instructions: Urinary Tract Infection in Men (ED) <BINH Mccullough Last Filed: 12/04/22 16:18> Additional Instructions: Drink plenty of fluids Take antibiotic as prescribed Follow with PCP if not better Report to ER if high fever vomiting. not feeling good <BINH Mccullough Last Filed: 12/04/22 16:18> Prescriptions: New ciprofloxacin HCl [Cipro] 500 mg tablet 500 mg PO BID Qty: 20 0RF No Action phenazopyridine [Pyridium] 100 mg tablet 100 mg PO TID PRN (Reason: Spasm) 4 Days Qty: 20 0RF cyanocobalamin (vitamin B-12) [Vitamin B-12] 1,000 mcg Tablet 1,000 mcg PO DAILY magnesium oxide 400 mg magnesium Tablet Vitamin D3 800 units PO DAILY multivitamin Tablet 1 tab PO DAILY potassium chloride PO DAILY sulfamethoxazole-trimethoprim [Bactrim] 400-80 mg tablet 1 tab PO DAILY Qty: 10 0RF finasteride 5 mg tablet 5 mg PO DAILY sertraline 50 mg tablet 50 mg PO DAILY losartan 25 mg tablet 25 mg PO DAILY <BINH Mccullough Last Filed: 12/04/22 16:18> Interventions: ED Discharge Assessment Last Done: 12/04/22 00:24 <BINH Mccullough Last Filed: 12/04/22 16:18> Discharge Date/Time: 12/04/22 00:24 <BINH Mccullough - Last Filed: 12/04/22 16:18>
[2022-12-03 17:48] VITALS: BP 143/71; PULSE 102; RESP 18; TEMP 36.7; O2SAT 95; BMI 22.4
[2022-12-03 18:28] LABS: MANUAL DIFF FLAG NO
[2022-12-03 18:37] LABS: Basophils Absolute Auto 0.1 X10*3/uL (0.0-0.2); Basophils Percent Auto 0.4 % (0-2); Eosinophils Percent Auto 0.1 % (0-4); Hematocrit 33.3 % (42.0-52.0); Hemoglobin 11.4 g/dl (14.0-18.0); Imm Gran Abs Auto 0.06 X10*3/uL (0.00-0.03); Imm Gran Pct Auto 0.5 % (0.0-0.4); Lymphocytes Absolute Auto 0.8 X10*3/uL (1.2-4.9); Lymphocytes Percent Auto 6.2 % (20-40); Mean Corpuscular HGB Conc 34.2 g/dl (31.0-36.0); Mean Corpuscular Hemoglobin 32.7 pg (27.0-33.0); Mean Corpuscular Volume 95.4 fL (80.0-98.0); Mean Platelet Volume 9.2 fL (9.4-12.4); Monocytes Absolute Auto 0.8 X10*3/uL (0.1-1.2); Monocytes Percent Auto 6.7 % (2-11); Neutrophils Absolute Auto 10.5 x10*3/uL (2.0-8.3); Neutrophils Percent Auto 86.1 % (45-73); Platelet Count 197 X10*3/uL (160-400); Red Blood Count 3.49 X10*6/uL (4.60-5.80); Red Cell Distribution Width 12.7 % (11.0-16.0); White Blood Count 12.2 X10*3/uL (4.8-10.8)
[2022-12-03 18:44] LABS: Lactic Acid 0.8 mmol/L (0.5-2.0)
[2022-12-03 18:49] LABS: Alanine Aminotransferase 22 U/L (0-40); Albumin Level 3.8 g/dL (3.5-5.0); Alkaline Phosphatase 46 U/L (39-117); Anion Gap 13 (12-20); Aspartate Amino Transferase 20 U/L (5-37); Bilirubin Direct 0.2 mg/dL (0.0-0.5); Bilirubin Total 0.8 mg/dL (0.0-1.0); Blood Urea Nitrogen 20 mg/dL (9-16); Calcium 8.4 mg/dL (8.4-10.2); Carbon Dioxide 24 mmol/L (22-29); Chloride 101 mmol/L (96-108); Creatinine Clr Calc Pharmacy 71.5; Estimated Glomerular Filt Rate > 60; Glucose Random 123 mg/dL (60-115); Potassium 4.1 mmol/L (3.3-5.1); Sodium 134 mmol/L (135-145)
[2022-12-03 18:50] LABS: COVID-19 Test Negative (Negative); IDNOW Serial# 08D9AD1C; IDNOW Serial# BCCEAD1C; Influenza A Negative (Negative); Influenza B2 Negative (Negative)
[2022-12-03 20:54] VITALS: BP 169/73; PULSE 93; RESP 17; TEMP 37.2; O2SAT 95
[2022-12-03 22:52] LABS: Appearance Urine Clear; Color Urine Yellow; Glucose Urine UA Negative (Negative); Leukocyte Esterase Urine Moderate (2+) (Negative); Nitrite Urine Positive (Negative); PH 6.5 (5.0-9.0); UMIC TRIGGER UACC YES; Urine Blood Moderate (2+) (Negative); Urine Ketones 15 mg/dL (Negative); Urine Protein 30 (1+) mg/dL (Neg-Trace)
[2022-12-03 22:57] LABS: Bacteria Urine Trace (None Seen); Hyaline Casts Urine 0-2 /LPF (0-2); RBC Urine >20 /HPF (0-2); Squamous Epithelial Cell Urine 0-2 /HPF (0-2); UACC Culture Trigger YES
[2022-12-03] MEDS: levoFLOXacin 500 MG TABLET PO (23:07)
== END 2022-12-04 00:24 | disposition home or self-care (01) ==
PROVIDERS: Physician Assistant; Emergency Provider Internal Medicine; PCP Internal Medicine
DX: N39.0 Urinary tract infection, site not specified (principal); Z79.899 Other long term (current) drug therapy; Z20.822 Contact with and (suspected) exposure to COVID-19; Z20.828 Contact with and (suspected) exposure to other viral communicable diseases
CPT/HCPCS: 80048; 80076; 81001; 83605; 83735; 85025; 87040; 87077; 87086; 87088; 87186; 87205; 87502; 87635; 99283; 99284

== ENCOUNTER 2022-12-05 19:52 | Emergency (ER) | payer MEDICARE, SELFPAY ==
--- NOTE | 2022-12-05 | ECG_ITS ---
Test Reason : SEPSIS Blood Pressure : / mmHG Vent. Rate : 081 BPM Atrial Rate : 079 BPM P-R Int : 000 ms QRS Dur : 072 ms QT Int : 346 ms P-R-T Axes : 000 -20 021 degrees QTc Int : 401 ms Multifocal atrial rhythm Inferior infarct , age undetermined Abnormal ECG No previous ECGs available Referred By: Ginger Rodriguez Electronically Signed By:MISTI PLUNKETT MD
--- NOTE | 2022-12-05 20:25 | ED.RECABL ---
HPI - Recheck/Abnormal Lab/Rx General Chief Complaint: Recheck/Abnormal Lab/Rx <Tammy Arora NP - Last Filed: 12/11/22 11:07> Stated Complaint: Infection? Got called in <Tammy Arora NP - Last Filed: 12/11/22 11:07> Time Seen by Provider: 12/05/22 21:12 <Tammy Arora NP - Last Filed: 12/11/22 11:07> Source: patient <Ginger Rodriguez MD - Last Filed: 12/05/22 21:36> Mode of arrival: ambulatory <Ginger Rodriguez MD - Last Filed: 12/05/22 21:36> Limitations: no limitations <Ginger Rodriguez MD - Last Filed: 12/05/22 21:36> History of Present Illness HPI narrative: Comes to the emergency room because he was asked to return to the ED because his blood cultures were positive. Patient was seen here 2 days ago, diagnosed with a UTI, prescribed ciprofloxacin. Patient states that since he was seen, patient is feeling better, still having intermittent chills, no known fever. No abdominal or flank pain, no dysuria. Patient has a chronic Brewster catheter. Patient denies nausea vomiting or diarrhea <Ginger Rodriguez MD - Last Filed: 12/05/22 21:36> Related Data Home Medications: Home Medications Medication Instructions Recorded Confirmed finasteride 5 mg tablet 5 mg PO DAILY 10/29/22 12/08/22 sertraline 50 mg tablet 50 mg PO DAILY 10/29/22 12/08/22 cyanocobalamin (vitamin B-12) 1,000 mcg PO DAILY 11/08/22 12/08/22 1,000 mcg tablet (Vitamin B-12) magnesium oxide 400 mg PO BID 11/08/22 12/08/22 multivitamin 1 tab PO DAILY 11/12/22 12/08/22 potassium chloride PO BID 11/12/22 losartan 50 mg tablet 25 mg PO QAM 12/05/22 12/08/22 acetaminophen 650 mg 650 mg PO Q12H PRN Pain 12/08/22 12/08/22 tablet,extended release cholecalciferol (vitamin D3) 25 25 mcg PO DAILY 12/08/22 12/08/22 mcg (1,000 unit) tablet melatonin 5 mg tablet 5 mg PO BEDTIME 12/08/22 12/08/22 Previous Rx's Medication Instructions Recorded ciprofloxacin HCl 500 mg tablet 500 mg PO BID #20 tabs 12/03/22 (Cipro) <Tammy Arora NP - Last Filed: 12/11/22 11:07> Allergies/Adverse Reactions: Allergies Allergy/AdvReac Type Severity Reaction Status Date / Time bee pollen [bee stings] Allergy Anaphylaxis Verified 12/05/22 20:26 <Tammy Arora NP - Last Filed: 12/11/22 11:07> Review of Systems Review of Systems: Constitutional : No Weight loss, No Fever, No Chills, No Night Sweats, No Fatigue, No Malaise ENT/Mouth : No Hearing loss, No Ear Pain, No Nasal Congestion, No Sinus Pain, No Hoarseness, No sore throat, No Rhinorrhea, No Swallowing Difficulty Eyes: No Eye Pain, No Swelling, No Redness, No Foreign Body, No Discharge, No Vision Changes Cardiovascular : No Chest Pain, No SOB, No Dyspnea on Exertion, No Orthopnea, No Edema, No Palpitations Respiratory : No Cough, No Sputum, No Wheezing, No Smoke Exposure, No Dyspnea Gastrointestinal : No Nausea, No Vomiting, No Diarrhea, No Constipation, No abdominal Pain, No Hematochezia, No Melena Genitourinary : Patient has a chronic Brewster catheter, No Dysuria, No Urinary Frequency, No Hematuria, No Urinary Incontinence, No Urgency, No Flank Pain, No Urinary Flow Changes, No Hesitancy Musculoskeletal : No joint pain, No Myalgias, No Joint Swelling Skin : No Skin Lesions, No rash Neuro : No Weakness, No Numbness, No Paresthesias, No Loss of Consciousness, No Dizziness, No Headache Psych : No Anxiety/Panic, No Depression, No SI/HI/AH/VH, No Social Issues, Heme/Lymph: No Bruising, No Bleeding,No Lymphadenopathy Endocrine : No Polyuria, No Polydipsia, No Temperature Intolerance <Ginger Rodriguez MD - Last Filed: 12/05/22 21:36> [facility] Past Medical History Medical History: Medical History Anxiety Bladder mass BPH (benign prostatic hyperplasia) EtOH dependence HTN (hypertension) OA (osteoarthritis) <Tammy Arora NP - Last Filed: 12/11/22 11:07> Surgical History: Surgical History History of tonsillectomy <Tammy Arora NP - Last Filed: 12/11/22 11:07> Social History Social History: Social History Housing: House Do you presently have visiting nurse or other home services: No Alcohol intake: never Patient Tobacco Use Status: Never used Tobacco Use of substances other than those prescribed or required for medical reasons: No Currently Displaying Signs/Symptoms of Drug Intoxication Withdrawal: No Have you been hit, kicked, punched, or otherwise hurt by someone within the past year? If so, by whom?: No Do you feel safe in your current relationship?: No Are you made to feel afraid or neglected: No Advance Directives: No Advance Directives Information Provided: No Advance Directives on File: No Recently lost weight without trying: Unsure service: No <Tammy Arora NP - Last Filed: 12/11/22 11:07> Physical Exam Vital Signs: Vital Signs: Last Vital Signs Temp 99.7 F 12/05/22 21:58 Pulse 84 12/05/22 21:58 Resp 16 12/05/22 21:58 BP 132/66 12/05/22 21:58 Pulse Ox 98 12/05/22 21:58 O2 Del Method Room Air 12/05/22 21:58 BMI result Body Mass Index 22.7 <Tammy Arora NP - Last Filed: 12/11/22 11:07> Vital Signs: Last Vital Signs Temp 99.7 F 12/05/22 21:58 Pulse 84 12/05/22 21:58 Resp 16 12/05/22 21:58 BP 132/66 12/05/22 21:58 Pulse Ox 98 12/05/22 21:58 O2 Del Method Room Air 12/05/22 21:58 BMI result Body Mass Index 22.7 <Ginger Rodriguez MD - Last Filed: 12/05/22 21:36> Vital Signs: Last Vital Signs Temp 99.7 F 12/05/22 21:58 Pulse 84 12/05/22 21:58 Resp 16 12/05/22 21:58 BP 132/66 12/05/22 21:58 Pulse Ox 98 12/05/22 21:58 O2 Del Method Room Air 12/05/22 21:58 BMI result Body Mass Index 22.7 <BINH Mccullough - Last Filed: 12/08/22 09:39> Const: Other: Appearance: Alert. Oriented X3. No acute distress. Well-appearing Eyes: Pupils equal, round and reactive to light. ENT: Pharynx normal. Neck: Normal inspection. Neck supple. No lymph nodes noted. No crepitus CVS: Normal heart rate and rhythm. Pulses normal. Normal S1 and S2 Respiratory: No respiratory distress. Breath sounds normal. No Wheezing. No rales Abdomen: Soft and nontender. No rigidity. No distention. Skin: Skin warm and dry. Normal skin color. Normal skin turgor. Extremities: No lower extremity edema. No Lacerations. No Rash Neuro: Oriented X 3. No motor deficit. No sensory deficit. Moving all extremities. No slurred speech. CN 2 through 12 grossly intact Psych: calm, cooperative, normal affect <Ginger Rodriguez MD - Last Filed: 12/05/22 21:36> Course Course Course Narrative: 72yo M w/PMHx anxiety, BPH, HTN, OA, bladder CA s/p TURBT by Dr. Mckeon on 11/11/22 with indwelling brewster catheter c/o generalized weakness, fatigue, chills, subj fever, nausea and emesis x 3 days. Seen in the emergency room 12/03. Patient has 2/2 blood cultures which are growing Gram-positive cocci in clusters. Patient was discharged on Cipro and has taken 5 doses. Patient is still having chills, weakness, fatigue and feels overall unwell. Will repeat labs including blood cultures, lactic acid, UA, COVID screen. I spoke to the charge nurse diallo-patient was brought into room 20 as a sepsis alert. I did speak to Dr. Rodriguez who will be resuming care of the patient. She tells me that she will order antibiotics on this patient <Tammy Arora NP - Last Filed: 12/11/22 11:07> Reevaluation(s) Reevaluation #1: 12/08/22--0937--urine and blood cultures from 12/03 growing Staph epidermidis, patient was seen in the ED on 12/05 for repeat blood cultures which continue to grow coag-negative staph. Patient called and informed to return to the ED for repeat cultures/IV antibiotics and admission <BINH Mccullough - Last Filed: 12/08/22 09:39> Medications Administered Discontinued Medications Generic Name Dose Route Start Last Admin Trade Name Freq PRN Reason Stop Dose Admin Sodium Chloride 1,000 mls @ 999 mls/hr 12/05/22 20:33 12/05/22 21:52 Ns IV 12/05/22 21:33 Infused .Q1H1M STA Infusion <Tammy Arora NP - Last Filed: 12/11/22 11:07> Medications Administered Discontinued Medications Generic Name Dose Route Start Last Admin Trade Name Freq PRN Reason Stop Dose Admin Sodium Chloride 1,000 mls @ 999 mls/hr 12/05/22 20:33 12/05/22 21:52 Ns IV 12/05/22 21:33 Infused .Q1H1M STA Infusion <Ginger Rodriguez MD - Last Filed: 12/05/22 21:36> Medications Administered Discontinued Medications Generic Name Dose Route Start Last Admin Trade Name Freq PRN Reason Stop Dose Admin Sodium Chloride 1,000 mls @ 999 mls/hr 12/05/22 20:33 12/05/22 21:52 Ns IV 12/05/22 21:33 Infused .Q1H1M STA Infusion <BINH Mccullough - Last Filed: 12/08/22 09:39> Medical Decision Making Medical Decision Making MDM Narrative: -I discussed the patient and the labs with Dr. Alford. Patient's white blood cell count actually improved. Patient feels better, asymptomatic. Patient has no fever, normal blood pressure. Patient's blood cultures are growing Staph, coagulase negative, likely both contaminants. Also, patient's urine grew Staph, likely secondary to a chronic indwelling catheter. No need to admit the patient. -I discussed with the patient that if he develops any worsening symptoms, not improving, or if we call him with another set of positive cultures, he needs to return to the emergency room. Patient instructed to continue taking antibiotics. -sepsis is not suspected -patient agrees with plan <Ginger Rodriguez MD - Last Filed: 12/05/22 21:36> Differential Diagnosis Differential Diagnoses: The differential diagnosis associated with the presentation includes <Ginger Rodriguez MD - Last Filed: 12/05/22 21:36> Admission/Observation Consideration of admission/observation: Escalation of care including admission/observation considered (I considered admitting the patient, discussed the patient with Dr. Alford, blood cultures is likely a contaminant, overall patient is improving, asymptomatic, not true bacteremia or sepsis) <Ginger Rodriguez MD - Last Filed: 12/05/22 21:36> Consult Healthcare Provider Management of the patient was discussed with: Hospitalist <Ginger Rordiguez MD - Last Filed: 12/05/22 21:36> Lab Data MDM Lab Attestation statement: I reviewed the patient's lab results. <Ginger Rodriguez MD - Last Filed: 12/05/22 21:36> Result Diagrams: 12/05/22 20:51 12/05/22 20:51 <Tammy Arora NP - Last Filed: 12/11/22 11:07> Labs: Lab Results 12/05/22 12/05/22 12/05/22 Range/Units 20:51 20:51 20:51 WBC 9.8 (4.8-10.8) X10*3/uL RBC 3.61 L (4.60-5.80) X10*6/uL Hgb 11.7 L (14.0-18.0) g/dl Hct 34.0 L (42.0-52.0) % MCV 94.2 (80.0-98.0) fL MCH 32.4 (27.0-33.0) pg MCHC 34.4 (31.0-36.0) g/dl RDW 12.2 (11.0-16.0) % Plt Count 185 (160-400) X10*3/uL MPV 9.3 L (9.4-12.4) fL Immature Gran % (Auto) 0.3 (0.0-0.4) % Neut % (Auto) 80.0 H (45-73) % Lymph % (Auto) 9.8 L (20-40) % [place] % (Auto) 8.6 (2-11) % Eos % (Auto) 1.0 (0-4) % Baso % (Auto) 0.3 (0-2) % Lymph # (Auto) 1.0 L (1.2-4.9) X10*3/uL [place] # (Auto) 0.8 (0.1-1.2) X10*3/uL Eos # (Auto) 0.1 (0.0-0.4) X10*3/uL Baso # (Auto) 0.0 (0.0-0.2) X10*3/uL Abs Immat Gran (auto) 0.03 (0.00-0.03) X10*3/uL Absolute Neuts (auto) 7.8 (2.0-8.3) x10*3/uL Absolute Nucleated RBC 0.000 (0.0-0.012) X10*3/uL Nucleated RBC % (auto) 0.0 (0.0-0.2) /100WBC Sodium 130 L (135-145) mmol/L Potassium 3.6 (3.3-5.1) mmol/L Chloride 95 L (96-108) mmol/L Carbon Dioxide 23 (22-29) mmol/L Anion Gap 16 (12-20) BUN 20 H (9-16) mg/dL Creatinine 1.03 (0.5-1.4) mg/dL Estim Creat Clear Calc 75.4 Estimated GFR > 60 Random Glucose 121 H (60-115) mg/dL Lactic Acid 0.9 (0.5-2.0) mmol/L Calcium 8.4 (8.4-10.2) mg/dL Total Bilirubin 0.7 (0.0-1.0) mg/dL Direct Bilirubin 0.2 (0.0-0.5) mg/dL AST 26 (5-37) U/L ALT 28 (0-40) U/L Alkaline Phosphatase 49 (39-117) U/L Total Protein 6.5 (6.5-8.0) g/dL Albumin 3.9 (3.5-5.0) g/dL COVID-19 ([facility]) (Negative) COVID-19 Clin Com 12/05/22 Range/Units 20:51 WBC (4.8-10.8) X10*3/uL RBC (4.60-5.80) X10*6/uL Hgb (14.0-18.0) g/dl Hct (42.0-52.0) % MCV (80.0-98.0) fL MCH (27.0-33.0) pg MCHC (31.0-36.0) g/dl RDW (11.0-16.0) % Plt Count (160-400) X10*3/uL MPV (9.4-12.4) fL Immature Gran % (Auto) (0.0-0.4) % Neut % (Auto) (45-73) % Lymph % (Auto) (20-40) % [place] % (Auto) (2-11) % Eos % (Auto) (0-4) % Baso % (Auto) (0-2) % Lymph # (Auto) (1.2-4.9) X10*3/uL [place] # (Auto) (0.1-1.2) X10*3/uL Eos # (Auto) (0.0-0.4) X10*3/uL Baso # (Auto) (0.0-0.2) X10*3/uL Abs Immat Gran (auto) (0.00-0.03) X10*3/uL Absolute Neuts (auto) (2.0-8.3) x10*3/uL Absolute Nucleated RBC (0.0-0.012) X10*3/uL Nucleated RBC % (auto) (0.0-0.2) /100WBC Sodium (135-145) mmol/L Potassium (3.3-5.1) mmol/L Chloride (96-108) mmol/L Carbon Dioxide (22-29) mmol/L Anion Gap (12-20) BUN (9-16) mg/dL Creatinine (0.5-1.4) mg/dL Estim Creat Clear Calc Estimated GFR Random Glucose (60-115) mg/dL Lactic Acid (0.5-2.0) mmol/L Calcium (8.4-10.2) mg/dL Total Bilirubin (0.0-1.0) mg/dL Direct Bilirubin (0.0-0.5) mg/dL AST (5-37) U/L ALT (0-40) U/L Alkaline Phosphatase (39-117) U/L Total Protein (6.5-8.0) g/dL Albumin (3.5-5.0) g/dL COVID-19 (AME) Negative (Negative) COVID-19 Clin Com See Note <Tammy Canlambert, DIRECTOR OF INDIVIDUAL GIVING - Last Filed: 12/11/22 11:07> Lab Results 12/05/22 12/05/22 12/05/22 Range/Units 20:51 20:51 20:51 WBC 9.8 (4.8-10.8) X10*3/uL RBC 3.61 L (4.60-5.80) X10*6/uL Hgb 11.7 L (14.0-18.0) g/dl Hct 34.0 L (42.0-52.0) % MCV 94.2 (80.0-98.0) fL MCH 32.4 (27.0-33.0) pg MCHC 34.4 (31.0-36.0) g/dl RDW 12.2 (11.0-16.0) % Plt Count 185 (160-400) X10*3/uL MPV 9.3 L (9.4-12.4) fL Immature Gran % (Auto) 0.3 (0.0-0.4) % Neut % (Auto) 80.0 H (45-73) % Lymph % (Auto) 9.8 L (20-40) % [place] % (Auto) 8.6 (2-11) % Eos % (Auto) 1.0 (0-4) % Baso % (Auto) 0.3 (0-2) % Lymph # (Auto) 1.0 L (1.2-4.9) X10*3/uL [place] # (Auto) 0.8 (0.1-1.2) X10*3/uL Eos # (Auto) 0.1 (0.0-0.4) X10*3/uL Baso # (Auto) 0.0 (0.0-0.2) X10*3/uL Abs Immat Gran (auto) 0.03 (0.00-0.03) X10*3/uL Absolute Neuts (auto) 7.8 (2.0-8.3) x10*3/uL Absolute Nucleated RBC 0.000 (0.0-0.012) X10*3/uL Nucleated RBC % (auto) 0.0 (0.0-0.2) /100WBC Sodium 130 L (135-145) mmol/L Potassium 3.6 (3.3-5.1) mmol/L Chloride 95 L (96-108) mmol/L Carbon Dioxide 23 (22-29) mmol/L Anion Gap 16 (12-20) BUN 20 H (9-16) mg/dL Creatinine 1.03 (0.5-1.4) mg/dL Estim Creat Clear Calc 75.4 Estimated GFR > 60 Random Glucose 121 H (60-115) mg/dL Lactic Acid 0.9 (0.5-2.0) mmol/L Calcium 8.4 (8.4-10.2) mg/dL Total Bilirubin 0.7 (0.0-1.0) mg/dL Direct Bilirubin 0.2 (0.0-0.5) mg/dL AST 26 (5-37) U/L ALT 28 (0-40) U/L Alkaline Phosphatase 49 (39-117) U/L Total Protein 6.5 (6.5-8.0) g/dL Albumin 3.9 (3.5-5.0) g/dL COVID-19 (AME) (Negative) COVID-19 Clin Com 12/05/22 Range/Units 20:51 WBC (4.8-10.8) X10*3/uL RBC (4.60-5.80) X10*6/uL Hgb (14.0-18.0) g/dl Hct (42.0-52.0) % MCV (80.0-98.0) fL MCH (27.0-33.0) pg MCHC (31.0-36.0) g/dl RDW (11.0-16.0) % Plt Count (160-400) X10*3/uL MPV (9.4-12.4) fL Immature Gran % (Auto) (0.0-0.4) % Neut % (Auto) (45-73) % Lymph % (Auto) (20-40) % [place] % (Auto) (2-11) % Eos % (Auto) (0-4) % Baso % (Auto) (0-2) % Lymph # (Auto) (1.2-4.9) X10*3/uL [place] # (Auto) (0.1-1.2) X10*3/uL Eos # (Auto) (0.0-0.4) X10*3/uL Baso # (Auto) (0.0-0.2) X10*3/uL Abs Immat Gran (auto) (0.00-0.03) X10*3/uL Absolute Neuts (auto) (2.0-8.3) x10*3/uL Absolute Nucleated RBC (0.0-0.012) X10*3/uL Nucleated RBC % (auto) (0.0-0.2) /100WBC Sodium (135-145) mmol/L Potassium (3.3-5.1) mmol/L Chloride (96-108) mmol/L Carbon Dioxide (22-29) mmol/L Anion Gap (12-20) BUN (9-16) mg/dL Creatinine (0.5-1.4) mg/dL Estim Creat Clear Calc Estimated GFR Random Glucose (60-115) mg/dL Lactic Acid (0.5-2.0) mmol/L Calcium (8.4-10.2) mg/dL Total Bilirubin (0.0-1.0) mg/dL Direct Bilirubin (0.0-0.5) mg/dL AST (5-37) U/L ALT (0-40) U/L Alkaline Phosphatase (39-117) U/L Total Protein (6.5-8.0) g/dL Albumin (3.5-5.0) g/dL COVID-19 (AME) Negative (Negative) COVID-19 Clin Com See Note <Ginger Rodriguez MD - Last Filed: 12/05/22 21:36> Lab Results 12/05/22 12/05/22 12/05/22 Range/Units 20:51 20:51 20:51 WBC 9.8 (4.8-10.8) X10*3/uL RBC 3.61 L (4.60-5.80) X10*6/uL Hgb 11.7 L (14.0-18.0) g/dl Hct 34.0 L (42.0-52.0) % MCV 94.2 (80.0-98.0) fL MCH 32.4 (27.0-33.0) pg MCHC 34.4 (31.0-36.0) g/dl RDW 12.2 (11.0-16.0) % Plt Count 185 (160-400) X10*3/uL MPV 9.3 L (9.4-12.4) fL Immature Gran % (Auto) 0.3 (0.0-0.4) % Neut % (Auto) 80.0 H (45-73) % Lymph % (Auto) 9.8 L (20-40) % [place] % (Auto) 8.6 (2-11) % Eos % (Auto) 1.0 (0-4) % Baso % (Auto) 0.3 (0-2) % Lymph # (Auto) 1.0 L (1.2-4.9) X10*3/uL [place] # (Auto) 0.8 (0.1-1.2) X10*3/uL Eos # (Auto) 0.1 (0.0-0.4) X10*3/uL Baso # (Auto) 0.0 (0.0-0.2) X10*3/uL Abs Immat Gran (auto) 0.03 (0.00-0.03) X10*3/uL Absolute Neuts (auto) 7.8 (2.0-8.3) x10*3/uL Absolute Nucleated RBC 0.000 (0.0-0.012) X10*3/uL Nucleated RBC % (auto) 0.0 (0.0-0.2) /100WBC Sodium 130 L (135-145) mmol/L Potassium 3.6 (3.3-5.1) mmol/L Chloride 95 L (96-108) mmol/L Carbon Dioxide 23 (22-29) mmol/L Anion Gap 16 (12-20) BUN 20 H (9-16) mg/dL Creatinine 1.03 (0.5-1.4) mg/dL Estim Creat Clear Calc 75.4 Estimated GFR > 60 Random Glucose 121 H (60-115) mg/dL Lactic Acid 0.9 (0.5-2.0) mmol/L Calcium 8.4 (8.4-10.2) mg/dL Total Bilirubin 0.7 (0.0-1.0) mg/dL Direct Bilirubin 0.2 (0.0-0.5) mg/dL AST 26 (5-37) U/L ALT 28 (0-40) U/L Alkaline Phosphatase 49 (39-117) U/L Total Protein 6.5 (6.5-8.0) g/dL Albumin 3.9 (3.5-5.0) g/dL COVID-19 ([facility]) (Negative) COVID-19 Clin Com 12/05/22 Range/Units 20:51 WBC (4.8-10.8) X10*3/uL RBC (4.60-5.80) X10*6/uL Hgb (14.0-18.0) g/dl Hct (42.0-52.0) % MCV (80.0-98.0) fL MCH (27.0-33.0) pg MCHC (31.0-36.0) g/dl RDW (11.0-16.0) % Plt Count (160-400) X10*3/uL MPV (9.4-12.4) fL Immature Gran % (Auto) (0.0-0.4) % Neut % (Auto) (45-73) % Lymph % (Auto) (20-40) % [place] % (Auto) (2-11) % Eos % (Auto) (0-4) % Baso % (Auto) (0-2) % Lymph # (Auto) (1.2-4.9) X10*3/uL [place] # (Auto) (0.1-1.2) X10*3/uL Eos # (Auto) (0.0-0.4) X10*3/uL Baso # (Auto) (0.0-0.2) X10*3/uL Abs Immat Gran (auto) (0.00-0.03) X10*3/uL Absolute Neuts (auto) (2.0-8.3) x10*3/uL Absolute Nucleated RBC (0.0-0.012) X10*3/uL Nucleated RBC % (auto) (0.0-0.2) /100WBC Sodium (135-145) mmol/L Potassium (3.3-5.1) mmol/L Chloride (96-108) mmol/L Carbon Dioxide (22-29) mmol/L Anion Gap (12-20) BUN (9-16) mg/dL Creatinine (0.5-1.4) mg/dL Estim Creat Clear Calc Estimated GFR Random Glucose (60-115) mg/dL Lactic Acid (0.5-2.0) mmol/L Calcium (8.4-10.2) mg/dL Total Bilirubin (0.0-1.0) mg/dL Direct Bilirubin (0.0-0.5) mg/dL AST (5-37) U/L ALT (0-40) U/L Alkaline Phosphatase (39-117) U/L Total Protein (6.5-8.0) g/dL Albumin (3.5-5.0) g/dL COVID-19 ([facility]) Negative (Negative) COVID-19 Clin Com See Note <BINH Mccullough - Last Filed: 12/08/22 09:39> Discharge Plan Discharge Clinical Impression: Abnormal laboratory test result <Tammy Arora NP - Last Filed: 12/11/22 11:07> Patient Disposition: Home, Self-Care <Tammy Arora NP - Last Filed: 12/11/22 11:07> Instructions: Catheter-associated Urinary Tract Infection (ED) <Tammy Arora NP - Last Filed: 12/11/22 11:07> Additional Instructions: Please follow-up with your primary care physician tomorrow. If you have any worsening or new symptoms, please return to the emergency room or call 911 <Tammy Arroa NP - Last Filed: 12/11/22 11:07> Prescriptions: No Action cyanocobalamin (vitamin B-12) [Vitamin B-12] 1,000 mcg Tablet 1,000 mcg PO DAILY magnesium oxide 400 mg magnesium Tablet 400 mg PO BID multivitamin Tablet 1 tab PO DAILY potassium chloride PO BID losartan 50 mg tablet 25 mg PO QAM acetaminophen 650 mg Tablet Extended Release 650 mg PO Q12H PRN (Reason: Pain) melatonin 5 mg Tablet 5 mg PO BEDTIME cholecalciferol (vitamin D3) 25 mcg (1,000 unit) Tablet 25 mcg PO DAILY ciprofloxacin HCl [Cipro] 500 mg tablet 500 mg PO BID Qty: 20 0RF finasteride 5 mg tablet 5 mg PO DAILY sertraline 50 mg tablet 50 mg PO DAILY <Tammy Arora NP - Last Filed: 12/11/22 11:07> Interventions: ED Discharge Assessment Last Done: 12/05/22 22:06 <Tammy Arora NP - Last Filed: 12/11/22 11:07> Discharge Date/Time: 12/05/22 22:12 <Tammy Arora NP - Last Filed: 12/11/22 11:07>
[2022-12-05 20:26] VITALS: BP 129/58; PULSE 90; RESP 18; TEMP 37.2; O2SAT 97; BMI 22.7
[2022-12-05 20:40] VITALS: BP 155/70; PULSE 89; RESP 17; TEMP 37; O2SAT 98
[2022-12-05 20:57] LABS: MANUAL DIFF FLAG NO
[2022-12-05 21:00] LABS: Basophils Percent Auto 0.3 % (0-2); Eosinophils Absolute Auto 0.1 X10*3/uL (0.0-0.4); Hemoglobin 11.7 g/dl (14.0-18.0); Imm Gran Abs Auto 0.03 X10*3/uL (0.00-0.03); Imm Gran Pct Auto 0.3 % (0.0-0.4); Lymphocytes Percent Auto 9.8 % (20-40); Mean Corpuscular HGB Conc 34.4 g/dl (31.0-36.0); Mean Corpuscular Hemoglobin 32.4 pg (27.0-33.0); Mean Corpuscular Volume 94.2 fL (80.0-98.0); Mean Platelet Volume 9.3 fL (9.4-12.4); Monocytes Absolute Auto 0.8 X10*3/uL (0.1-1.2); Monocytes Percent Auto 8.6 % (2-11); Neutrophils Absolute Auto 7.8 x10*3/uL (2.0-8.3); Platelet Count 185 X10*3/uL (160-400); Red Blood Count 3.61 X10*6/uL (4.60-5.80); Red Cell Distribution Width 12.2 % (11.0-16.0); White Blood Count 9.8 X10*3/uL (4.8-10.8)
[2022-12-05] MEDS: 0.9 % Sodium Chloride 1,000 ML 999 ML IV (21:05)
[2022-12-05 21:11] LABS: COVID-19 Test Negative (Negative); IDNOW Serial# 08D9AD1C; Lactic Acid 0.9 mmol/L (0.5-2.0)
[2022-12-05 21:28] LABS: Alanine Aminotransferase 28 U/L (0-40); Albumin Level 3.9 g/dL (3.5-5.0); Alkaline Phosphatase 49 U/L (39-117); Anion Gap 16 (12-20); Aspartate Amino Transferase 26 U/L (5-37); Bilirubin Direct 0.2 mg/dL (0.0-0.5); Bilirubin Total 0.7 mg/dL (0.0-1.0); Blood Urea Nitrogen 20 mg/dL (9-16); Calcium 8.4 mg/dL (8.4-10.2); Carbon Dioxide 23 mmol/L (22-29); Chloride 95 mmol/L (96-108); Creatinine Clr Calc Pharmacy 75.4; Estimated Glomerular Filt Rate > 60; Glucose Random 121 mg/dL (60-115); Potassium 3.6 mmol/L (3.3-5.1); Sodium 130 mmol/L (135-145); Total Protein 6.5 g/dL (6.5-8.0)
[2022-12-05 21:36] VITALS: BP 133/69; PULSE 74; RESP 16; TEMP 37.2; O2SAT 99
[2022-12-05 21:58] VITALS: BP 132/66; PULSE 84; RESP 16; TEMP 37.6; O2SAT 98
== END 2022-12-05 22:12 | disposition home or self-care (01) ==
PROVIDERS: Nurse Practitioner Family; Emergency Provider Emergency Medicine; PCP Internal Medicine
DX: R79.89 Other specified abnormal findings of blood chemistry (principal); R94.31 Abnormal electrocardiogram [ECG] [EKG]; R53.1 Weakness; R11.2 Nausea with vomiting, unspecified; C67.9 Malignant neoplasm of bladder, unspecified; R50.9 Fever, unspecified; B95.7 Other staphylococcus as the cause of diseases classified elsewhere; I10 Essential (primary) hypertension; Z20.822 Contact with and (suspected) exposure to COVID-19; Z20.828 Contact with and (suspected) exposure to other viral communicable diseases; Z79.899 Other long term (current) drug therapy
CPT/HCPCS: 80048; 80076; 83605; 85025; 87040; 87147; 87205; 87635; 93005; 96360; 99284

== ENCOUNTER 2022-12-08 10:39 | Inpatient (IN) | payer MEDICARE, SELFPAY ==
[2022-12-08 11:09] VITALS: BP 127/54; PULSE 77; RESP 20; TEMP 36.6; O2SAT 95; BMI 21.9
--- NOTE | 2022-12-08 11:17 | ED.RECABL ---
HPI - Recheck/Abnormal Lab/Rx General Chief Complaint: General Medical <BINH Tavera - Last Filed: 12/08/22 11:32> Stated Complaint: infection? <BINH Tavera - Last Filed: 12/08/22 11:32> Time Seen by Provider: 12/08/22 11:38 <BINH Tavera - Last Filed: 12/08/22 11:32> Source: patient, family and old records reviewed <BINH Evans - Last Filed: 12/08/22 16:34> Mode of arrival: ambulatory <BINH Evans - Last Filed: 12/08/22 16:34> History of Present Illness HPI narrative: This is a 72-year-old male of bladder cancer status post TURBT by Dr. Mckeon on 11/11/22 with indwelling Plascencia catheter, BPH, hypertension, who presents to the emergency department with complaints of continued generalized fatigue, chills, and drenching night sweats since 12/02/2022. On December 03, 2022, patient was seen in [facility] ED and was diagnosed with a UTI and was discharged on ciprofloxacin. On December 04, 2022, patient's blood cultures returned with coag-negative staph x2. Patient was advised to return to the emergency department at that time. On December 05, 2022, patient return to the ED due to positive blood cultures. Dr. Alford was consulted at that time and believes that her of the no because he was feeling better and was asymptomatic these positive results for likely contaminants. Today, December 07, 2022, pt returns due to no symptomatic improvement and blood cultures +coag-neg staph x 1, and urine cx + for staph epidermidis with multiple antibiotic resistance. Pt reports that he has had fatigue, night sweats and generalized malaise which has not improved since December 02, 2022. Patient has had intermittent nausea, and 2-3 episodes of diarrhea per day, denies any bloody or black stool. Patient reports that over the last week he has had drenching night sweats, he has reported that last night he had to change his saturated shirt four times. Patient reports that he also has been sleeping most of the day. Patient denies any cough, shortness of breath, abdominal pain, lower extremity swelling, headaches, dizziness, blurred vision. <BINH Evans Last Filed: 12/08/22 16:34> MD complaint: needs IV antibiotics <BINH Evans Last Filed: 12/08/22 16:34> Associated symptoms: fever, chills and nausea <BINH Evans Last Filed: 12/08/22 16:34> Related Data Home Medications: Home Medications Medication Instructions Recorded Confirmed finasteride 5 mg tablet 5 mg PO DAILY 10/29/22 12/08/22 sertraline 50 mg tablet 50 mg PO DAILY 10/29/22 12/08/22 cyanocobalamin (vitamin B-12) 1,000 mcg PO DAILY 11/08/22 12/08/22 1,000 mcg tablet (Vitamin B-12) magnesium oxide 400 mg PO BID 11/08/22 12/08/22 multivitamin 1 tab PO DAILY 11/12/22 12/08/22 potassium chloride PO BID 11/12/22 losartan 50 mg tablet 25 mg PO QAM 12/05/22 12/08/22 acetaminophen 650 mg 650 mg PO Q12H PRN Pain 12/08/22 12/08/22 tablet,extended release cholecalciferol (vitamin D3) 25 25 mcg PO DAILY 12/08/22 12/08/22 mcg (1,000 unit) tablet melatonin 5 mg tablet 5 mg PO BEDTIME 12/08/22 12/08/22 Previous Rx's Medication Instructions Recorded ciprofloxacin HCl 500 mg tablet 500 mg PO BID #20 tabs 12/03/22 (Cipro) <BINH Tavera Last Filed: 12/08/22 11:32> Allergies/Adverse Reactions: Allergies Allergy/AdvReac Type Severity Reaction Status Date / Time bee pollen [bee stings] Allergy Anaphylaxis Verified 12/05/22 20:26 <BINH Tavera Last Filed: 12/08/22 11:32> Review of Systems Review of Systems: Constitutional: No Weight loss, +Subjective Fever, +Chills, +Night Sweats, +Fatigue, + Malaise ENT/Mouth: No Hearing loss, No Ear Pain, No Nasal Congestion, No Sinus Pain, No Hoarseness, No sore throat, No Rhinorrhea, No Swallowing Difficulty Eyes: No Eye Pain, No Swelling, No Redness, No Foreign Body, No Discharge, No Vision Changes Cardiovascular: No Chest Pain, No SOB, No Dyspnea on Exertion, No Orthopnea, No Edema, No Palpitations Respiratory: No Cough, No Sputum, No Wheezing, No Smoke Exposure, No Dyspnea Gastrointestinal: +Nausea, No Vomiting, + Diarrhea, No Constipation, No Abdominal pain, No Hematochezia, No Melena Genitourinary: No irregular bleeding, No Dysuria, No Urinary Frequency, No Hematuria, No Urinary Incontinence/retention, No Urgency, No Flank Pain, No Urinary Flow Changes, No Hesitancy Musculoskeletal: No joint pain, No Myalgias, No Joint Swelling Skin: No Skin Lesions, No rash Neuro: No Weakness, No Numbness, No Paresthesias, No Loss of Consciousness, No Dizziness, No Headache Psych: No Anxiety/Panic, No Depression, No SI/HI/AH/VH, No Social Issues, Heme/Lymph: No Bruising, No Bleeding,No Lymphadenopathy Endocrine: No Polyuria, No Polydipsia, No Temperature Intolerance <BINH Evans - Last Filed: 12/08/22 16:34> [facility] Past Medical History Attestation statement: The following information was validated with the patient. <BINH Evans - Last Filed: 12/08/22 16:34> Medical History: Medical History Anxiety Bladder mass BPH (benign prostatic hyperplasia) EtOH dependence HTN (hypertension) OA (osteoarthritis) <BINH Tavera - Last Filed: 12/08/22 11:32> Surgical History: Surgical History History of tonsillectomy <BINH Tavera - Last Filed: 12/08/22 11:32> Social History Social History: Social History Housing: House Do you presently have visiting nurse or other home services: No Alcohol intake: never Patient Tobacco Use Status: Never used Tobacco Use of substances other than those prescribed or required for medical reasons: No Have you been hit, kicked, punched, or otherwise hurt by someone within the past year? If so, by whom?: No Do you feel safe in your current relationship?: No Are you made to feel afraid or neglected: No Advance Directives: No Advance Directives Information Provided: No Advance Directives on File: No Recently lost weight without trying: Unsure service: No <BINH Tavera - Last Filed: 12/08/22 11:32> Physical Exam Vital Signs: Vital Signs: Last Vital Signs Temp 97.4 F 12/08/22 15:56 Pulse 96 12/08/22 15:56 Resp 16 12/08/22 15:56 BP 124/63 12/08/22 15:56 Pulse Ox 98 12/08/22 15:56 O2 Del Method Room Air 12/08/22 15:56 BMI result Body Mass Index 21.9 <BINH Tavera - Last Filed: 12/08/22 11:32> Vital Signs: Last Vital Signs Temp 97.4 F 12/08/22 15:56 Pulse 96 12/08/22 15:56 Resp 16 12/08/22 15:56 BP 124/63 12/08/22 15:56 Pulse Ox 98 12/08/22 15:56 O2 Del Method Room Air 12/08/22 15:56 BMI result Body Mass Index 21.9 <BINH Evans - Last Filed: 12/08/22 16:34> Appearance: Alert. Oriented X3. No acute distress. Appears fatigued. Eyes: Pupils equal, round and reactive to light. EOMI ENT: Pharynx normal. Moist mucous membranes, no tonsillar hypertrophy or exudates. Neck: Normal inspection. Neck supple. No cervical lymphadenopathy. CVS: Normal heart rate and rhythm. Pulses normal. S1-S2 regular Respiratory: No respiratory distress. Breath sounds normal. Lungs clear auscultation bilaterally, no wheezes rhonchi or rales. Abdomen: Soft and nontender. +BS x4 Skin: Skin warm and dry. Normal skin color. Normal skin turgor. No rashes. Extremities: No lower extremity edema. Neuro: Oriented X 3. No motor deficit. No sensory deficit. CN II-XII intact. <BINH Evans - Last Filed: 12/08/22 16:34> Course Course Course Narrative: RME 11:15am - 72yoM with a PMHx of bladder cancer recently diagnosed in October followed by Dr. Mckeon who is now status post TURBT procedure on 11/14/2022 who was seen here on 12/03/2022 and 12/06/2019 and diagnosed with UTI and has some positive blood cultures was sent home on ciprofloxacin who is presenting to the ER after he was called again for positive blood cultures. Reports that he has had some sweats over the past few nights although denies any other symptoms related to this. He denies any fevers, chills, chest pain, shortness of breath, cough, nasal congestion, wounds or rashes, abdominal pain, flank pain, back pain, dysuria, hematuria, abnormal penile discharge, discoloration of the urine from the catheter port or any other symptoms complaints or concerns at this time. Plan: Labs, UA, blood cultures, lactic acid all ordered at this time. Patient will be sent to the ED for further evaluation and treatment. <BINH Tavera - Last Filed: 12/08/22 11:32> Reevaluation(s) Reevaluation #1: 12:28PM - Suspect infection at this time. Review of labs performed in triage reveal no leukocytosis, normocytic anemia. Because patient has continued to feel lousy despite oral ciprofloxacin, blood culture x1 revealed coag-negative staph, urine grew Staph epidermidis with multiple drug resistance, patient will likely need to be admitted for IV antibiotics for resolution. 1 L of IV fluids, clindamycin 500 mg IV ordered secondary to drug resistance found in urine culture results. Discussed case with attending physician, Dr. Benjamin who agrees with treatment plan. Discussed case with the medical team, patient will be admitted for further treatment and evaluation. <BINH Evans - Last Filed: 12/08/22 16:34> Time: 12:28 <BINH Evans - Last Filed: 12/08/22 16:34> Medications Administered Generic Name Dose Route Start Last Admin Trade Name Freq PRN Reason Stop Dose Admin Enoxaparin Sodium 40 mg 12/08/22 14:00 12/08/22 14:38 Enoxaparin Sodium 40 Mg/0.4 Ml Syringe SUBCUT 40 mg Q24H LENORA Administration Sodium Chloride 3 ml 12/08/22 16:00 12/08/22 14:40 0.9 % Sodium Chloride Flush 3 Ml Syringe IVFLUSH Not Given QSHIFT LENORA Discontinued Medications Generic Name Dose Route Start Last Admin Trade Name Freq PRN Reason Stop Dose Admin Sodium Chloride 1,000 mls @ 999 mls/hr 12/08/22 12:03 12/08/22 14:40 Ns IVCONT 12/08/22 13:03 Infused .Q1H1M ONE Infusion Clindamycin Phosphate 600 mg in 50 mls @ 100 mls/hr 12/08/22 12:02 12/08/22 14:40 Cleocin IV 12/08/22 12:31 Infused ONCE ONE Infusion Vancomycin HCl 2,000 mg in 500 mls @ 250 mls/hr 12/08/22 14:00 12/08/22 14:38 Vancomycin/Ns IV 12/08/22 15:59 250 mls/hr ONCE ONE Administration <BINH Tavera - Last Filed: 12/08/22 11:32> Medications Administered Generic Name Dose Route Start Last Admin Trade Name Freq PRN Reason Stop Dose Admin Enoxaparin Sodium 40 mg 12/08/22 14:00 12/08/22 14:38 Enoxaparin Sodium 40 Mg/0.4 Ml Syringe SUBCUT 40 mg Q24H LENORA Administration Sodium Chloride 3 ml 12/08/22 16:00 12/08/22 14:40 0.9 % Sodium Chloride Flush 3 Ml Syringe IVFLUSH Not Given QSHIFT LENORA Discontinued Medications Generic Name Dose Route Start Last Admin Trade Name Freq PRN Reason Stop Dose Admin Sodium Chloride 1,000 mls @ 999 mls/hr 12/08/22 12:03 12/08/22 14:40 Ns IVCONT 12/08/22 13:03 Infused .Q1H1M ONE Infusion Clindamycin Phosphate 600 mg in 50 mls @ 100 mls/hr 12/08/22 12:02 12/08/22 14:40 Cleocin IV 12/08/22 12:31 Infused ONCE ONE Infusion Vancomycin HCl 2,000 mg in 500 mls @ 250 mls/hr 12/08/22 14:00 12/08/22 14:38 Vancomycin/Ns IV 12/08/22 15:59 250 mls/hr ONCE ONE Administration <BINH Evans - Last Filed: 12/08/22 16:34> Medical Decision Making Medical Decision Making MDM Narrative: 72yoM with a PMHx of bladder cancer recently diagnosed in October followed by Dr. Mckeon who is now status post TURBT procedure on 11/14/2022 who was seen here on 12/03/2022 and 12/06/2019 and diagnosed with UTI and has some positive blood cultures was sent home on ciprofloxacin who is presenting to the ER after he was called again for positive blood cultures. On examination, patient is afebrile, blood pressure 127/54, oxygen saturation 95% on room air. Patient appears comfortable however looks fatigued. <BINH Evans - Last Filed: 12/08/22 16:34> Differential Diagnosis Differential Diagnoses: The differential diagnosis associated with the presentation includes <BINH Evans Last Filed: 12/08/22 16:34> Complicated UTI, cystitis, electrolyte abnormality, dehydration, bacteremia <BINH Evans - Last Filed: 12/08/22 16:34> Consult Healthcare Provider Management of the patient was discussed with: Bindery Helper <BINH Evans - Last Filed: 12/08/22 16:34> Lab Data MDM Lab Attestation statement: I reviewed the patient's lab results. <BINH Evans - Last Filed: 12/08/22 16:34> Result Diagrams: 12/08/22 11:37 12/08/22 11:37 <BINH Tavera - Last Filed: 12/08/22 11:32> Labs: Lab Results 12/08/22 12/08/22 12/08/22 Range/Units 11:37 11:37 11:37 WBC 10.0 (4.8-10.8) X10*3/uL RBC 3.48 L (4.60-5.80) X10*6/uL Hgb 11.2 L (14.0-18.0) g/dl Hct 32.8 L (42.0-52.0) % MCV 94.3 (80.0-98.0) fL MCH 32.2 (27.0-33.0) pg MCHC 34.1 (31.0-36.0) g/dl RDW 12.6 (11.0-16.0) % Plt Count 179 (160-400) X10*3/uL MPV 9.1 L (9.4-12.4) fL Immature Gran % (Auto) 0.4 (0.0-0.4) % Neut % (Auto) 78.2 H (45-73) % Lymph % (Auto) 9.8 L (20-40) % Saline % (Auto) 9.0 (2-11) % Eos % (Auto) 2.3 (0-4) % Baso % (Auto) 0.3 (0-2) % Lymph # (Auto) 1.0 L (1.2-4.9) X10*3/uL Saline # (Auto) 0.9 (0.1-1.2) X10*3/uL Eos # (Auto) 0.2 (0.0-0.4) X10*3/uL Baso # (Auto) 0.0 (0.0-0.2) X10*3/uL Abs Immat Gran (auto) 0.04 H (0.00-0.03) X10*3/uL Absolute Neuts (auto) 7.8 (2.0-8.3) x10*3/uL Absolute Nucleated RBC 0.000 (0.0-0.012) X10*3/uL Nucleated RBC % (auto) 0.0 (0.0-0.2) /100WBC ESR 94 H (0-15) MM/HR Sodium 137 (135-145) mmol/L Potassium 3.4 (3.3-5.1) mmol/L Chloride 102 (96-108) mmol/L Carbon Dioxide 25 (22-29) mmol/L Anion Gap 13 (12-20) BUN 20 H (9-16) mg/dL Creatinine 1.10 (0.5-1.4) mg/dL Estim Creat Clear Calc 68.0 Estimated GFR > 60 Random Glucose 114 (60-115) mg/dL Lactic Acid (0.5-2.0) mmol/L Calcium 8.2 L (8.4-10.2) mg/dL Magnesium 2.3 (1.6-2.6) mg/dL Total Bilirubin 0.5 (0.0-1.0) mg/dL AST 21 (5-37) U/L ALT 38 (0-40) U/L Alkaline Phosphatase 54 (39-117) U/L C-Reactive Protein 13.82 H (< or = 0.50) mg/dL Total Protein 5.8 L (6.5-8.0) g/dL Albumin 3.4 L (3.5-5.0) g/dL Urine Color Urine Appearance Urine pH (5.0-9.0) Ur Specific [place] (1.005-1.025) Urine Protein (Neg-Trace) mg/dL Urine Glucose (UA) (Negative) mg/dL Urine Ketones (Negative) mg/dL Urine Blood (Negative) Urine Nitrite (Negative) Ur Leukocyte Esterase (Negative) Urine RBC (0-2) /HPF Urine WBC (0-5) /HPF Ur Squamous Epith Cells (0-2) /HPF Urine Bacteria (None Seen) Hyaline Casts (0-2) /LPF Influenza Type A (PCR) (Negative) Influenza Type B (PCR) (Negative) RSV RNA Qual (PCR) (Negative) SARS-CoV-2 RNA (RT-PCR) (Negative) 12/08/22 12/08/22 12/08/22 Range/Units 11:37 12:37 12:37 WBC (4.8-10.8) X10*3/uL RBC (4.60-5.80) X10*6/uL Hgb (14.0-18.0) g/dl Hct (42.0-52.0) % MCV (80.0-98.0) fL MCH (27.0-33.0) pg MCHC (31.0-36.0) g/dl RDW (11.0-16.0) % Plt Count (160-400) X10*3/uL MPV (9.4-12.4) fL Immature Gran % (Auto) (0.0-0.4) % Neut % (Auto) (45-73) % Lymph % (Auto) (20-40) % Saline % (Auto) (2-11) % Eos % (Auto) (0-4) % Baso % (Auto) (0-2) % Lymph # (Auto) (1.2-4.9) X10*3/uL Saline # (Auto) (0.1-1.2) X10*3/uL Eos # (Auto) (0.0-0.4) X10*3/uL Baso # (Auto) (0.0-0.2) X10*3/uL Abs Immat Gran (auto) (0.00-0.03) X10*3/uL Absolute Neuts (auto) (2.0-8.3) x10*3/uL Absolute Nucleated RBC (0.0-0.012) X10*3/uL Nucleated RBC % (auto) (0.0-0.2) /100WBC ESR (0-15) MM/HR Sodium (135-145) mmol/L Potassium (3.3-5.1) mmol/L Chloride (96-108) mmol/L Carbon Dioxide (22-29) mmol/L Anion Gap (12-20) BUN (9-16) mg/dL Creatinine (0.5-1.4) mg/dL Estim Creat Clear Calc Estimated GFR Random Glucose (60-115) mg/dL Lactic Acid 0.9 (0.5-2.0) mmol/L Calcium (8.4-10.2) mg/dL Magnesium (1.6-2.6) mg/dL Total Bilirubin (0.0-1.0) mg/dL AST (5-37) U/L ALT (0-40) U/L Alkaline Phosphatase (39-117) U/L C-Reactive Protein (< or = 0.50) mg/dL Total Protein (6.5-8.0) g/dL Albumin (3.5-5.0) g/dL Urine Color Yellow Urine Appearance Clear Urine pH 6.5 (5.0-9.0) Ur Specific [place] 1.010 (1.005-1.025) Urine Protein 30 (1+) H (Neg-Trace) mg/dL Urine Glucose (UA) Negative (Negative) mg/dL Urine Ketones Negative (Negative) mg/dL Urine Blood Moderate (2+) H (Negative) Urine Nitrite Negative (Negative) Ur Leukocyte Esterase Large (3+) H (Negative) Urine RBC 6-10 H (0-2) /HPF Urine WBC 21-50 H (0-5) /HPF Ur Squamous Epith Cells 0-2 (0-2) /HPF Urine Bacteria None Seen (None Seen) Hyaline Casts 0-2 (0-2) /LPF Influenza Type A (PCR) NEGATIVE (Negative) Influenza Type B (PCR) NEGATIVE (Negative) RSV RNA Qual (PCR) NEGATIVE (Negative) SARS-CoV-2 RNA (RT-PCR) NEGATIVE (Negative) <BINH Tavera - Last Filed: 12/08/22 11:32> Lab Results 12/08/22 12/08/22 12/08/22 Range/Units 11:37 11:37 11:37 WBC 10.0 (4.8-10.8) X10*3/uL RBC 3.48 L (4.60-5.80) X10*6/uL Hgb 11.2 L (14.0-18.0) g/dl Hct 32.8 L (42.0-52.0) % MCV 94.3 (80.0-98.0) fL MCH 32.2 (27.0-33.0) pg MCHC 34.1 (31.0-36.0) g/dl RDW 12.6 (11.0-16.0) % Plt Count 179 (160-400) X10*3/uL MPV 9.1 L (9.4-12.4) fL Immature Gran % (Auto) 0.4 (0.0-0.4) % Neut % (Auto) 78.2 H (45-73) % Lymph % (Auto) 9.8 L (20-40) % Saline % (Auto) 9.0 (2-11) % Eos % (Auto) 2.3 (0-4) % Baso % (Auto) 0.3 (0-2) % Lymph # (Auto) 1.0 L (1.2-4.9) X10*3/uL Saline # (Auto) 0.9 (0.1-1.2) X10*3/uL Eos # (Auto) 0.2 (0.0-0.4) X10*3/uL Baso # (Auto) 0.0 (0.0-0.2) X10*3/uL Abs Immat Gran (auto) 0.04 H (0.00-0.03) X10*3/uL Absolute Neuts (auto) 7.8 (2.0-8.3) x10*3/uL Absolute Nucleated RBC 0.000 (0.0-0.012) X10*3/uL Nucleated RBC % (auto) 0.0 (0.0-0.2) /100WBC ESR 94 H (0-15) MM/HR Sodium 137 (135-145) mmol/L Potassium 3.4 (3.3-5.1) mmol/L Chloride 102 (96-108) mmol/L Carbon Dioxide 25 (22-29) mmol/L Anion Gap 13 (12-20) BUN 20 H (9-16) mg/dL Creatinine 1.10 (0.5-1.4) mg/dL Estim Creat Clear Calc 68.0 Estimated GFR > 60 Random Glucose 114 (60-115) mg/dL Lactic Acid (0.5-2.0) mmol/L Calcium 8.2 L (8.4-10.2) mg/dL Magnesium 2.3 (1.6-2.6) mg/dL Total Bilirubin 0.5 (0.0-1.0) mg/dL AST 21 (5-37) U/L ALT 38 (0-40) U/L Alkaline Phosphatase 54 (39-117) U/L C-Reactive Protein 13.82 H (< or = 0.50) mg/dL Total Protein 5.8 L (6.5-8.0) g/dL Albumin 3.4 L (3.5-5.0) g/dL Urine Color Urine Appearance Urine pH (5.0-9.0) Ur Specific [place] (1.005-1.025) Urine Protein (Neg-Trace) mg/dL Urine Glucose (UA) (Negative) mg/dL Urine Ketones (Negative) mg/dL Urine Blood (Negative) Urine Nitrite (Negative) Ur Leukocyte Esterase (Negative) Urine RBC (0-2) /HPF Urine WBC (0-5) /HPF Ur Squamous Epith Cells (0-2) /HPF Urine Bacteria (None Seen) Hyaline Casts (0-2) /LPF Influenza Type A (PCR) (Negative) Influenza Type B (PCR) (Negative) RSV RNA Qual (PCR) (Negative) SARS-CoV-2 RNA (RT-PCR) (Negative) 12/08/22 12/08/22 12/08/22 Range/Units 11:37 12:37 12:37 WBC (4.8-10.8) X10*3/uL RBC (4.60-5.80) X10*6/uL Hgb (14.0-18.0) g/dl Hct (42.0-52.0) % MCV (80.0-98.0) fL MCH (27.0-33.0) pg MCHC (31.0-36.0) g/dl RDW (11.0-16.0) % Plt Count (160-400) X10*3/uL MPV (9.4-12.4) fL Immature Gran % (Auto) (0.0-0.4) % Neut % (Auto) (45-73) % Lymph % (Auto) (20-40) % Saline % (Auto) (2-11) % Eos % (Auto) (0-4) % Baso % (Auto) (0-2) % Lymph # (Auto) (1.2-4.9) X10*3/uL Saline # (Auto) (0.1-1.2) X10*3/uL Eos # (Auto) (0.0-0.4) X10*3/uL Baso # (Auto) (0.0-0.2) X10*3/uL Abs Immat Gran (auto) (0.00-0.03) X10*3/uL Absolute Neuts (auto) (2.0-8.3) x10*3/uL Absolute Nucleated RBC (0.0-0.012) X10*3/uL Nucleated RBC % (auto) (0.0-0.2) /100WBC ESR (0-15) MM/HR Sodium (135-145) mmol/L Potassium (3.3-5.1) mmol/L Chloride (96-108) mmol/L Carbon Dioxide (22-29) mmol/L Anion Gap (12-20) BUN (9-16) mg/dL Creatinine (0.5-1.4) mg/dL Estim Creat Clear Calc Estimated GFR Random Glucose (60-115) mg/dL Lactic Acid 0.9 (0.5-2.0) mmol/L Calcium (8.4-10.2) mg/dL Magnesium (1.6-2.6) mg/dL Total Bilirubin (0.0-1.0) mg/dL AST (5-37) U/L ALT (0-40) U/L Alkaline Phosphatase (39-117) U/L C-Reactive Protein (< or = 0.50) mg/dL Total Protein (6.5-8.0) g/dL Albumin (3.5-5.0) g/dL Urine Color Yellow Urine Appearance Clear Urine pH 6.5 (5.0-9.0) Ur Specific [place] 1.010 (1.005-1.025) Urine Protein 30 (1+) H (Neg-Trace) mg/dL Urine Glucose (UA) Negative (Negative) mg/dL Urine Ketones Negative (Negative) mg/dL Urine Blood Moderate (2+) H (Negative) Urine Nitrite Negative (Negative) Ur Leukocyte Esterase Large (3+) H (Negative) Urine RBC 6-10 H (0-2) /HPF Urine WBC 21-50 H (0-5) /HPF Ur Squamous Epith Cells 0-2 (0-2) /HPF Urine Bacteria None Seen (None Seen) Hyaline Casts 0-2 (0-2) /LPF Influenza Type A (PCR) NEGATIVE (Negative) Influenza Type B (PCR) NEGATIVE (Negative) RSV RNA Qual (PCR) NEGATIVE (Negative) SARS-CoV-2 RNA (RT-PCR) NEGATIVE (Negative) <BINH Evans - Last Filed: 12/08/22 16:34> External Record Review External record reviewed: Inpatient record, Office record, Outpatient record, Prior outpatient labs, Prior outpatient radiology, Primary care record and Outside ED record <BINH Evans - Last Filed: 12/08/22 16:34> Prescription Management I considered prescription management with: Antibiotic <BINH Evans - Last Filed: 12/08/22 16:34> Critical Care Time Critical Care Time Critical Care Time: Yes <BINH Evans - Last Filed: 12/08/22 16:34> Total Critical Care Time: 30 <BINH Evans Last Filed: 12/08/22 16:34> Attestation: I performed 30 minutes of critical care reviewing patient's medical records including blood cultures, urinalysis, urine culture, and previous ER visit. <BINH Evans Last Filed: 12/08/22 16:34> Discharge Plan Discharge Clinical Impression: Bacteremia, Abnormal laboratory test <BINH Tavera - Last Filed: 12/08/22 11:32> Patient Disposition: Admitted As Inpatient <BINH Tavera - Last Filed: 12/08/22 11:32> Interventions: Admission Worksheet (ED) Last Done: 12/08/22 14:50 <BINH Tavera - Last Filed: 12/08/22 11:32> Discharge Date/Time: 12/08/22 14:51 <BINH Tavera - Last Filed: 12/08/22 11:32>
[2022-12-08 11:43] LABS: MANUAL DIFF FLAG NO
[2022-12-08 11:46] LABS: Basophils Percent Auto 0.3 % (0-2); Eosinophils Absolute Auto 0.2 X10*3/uL (0.0-0.4); Eosinophils Percent Auto 2.3 % (0-4); Hematocrit 32.8 % (42.0-52.0); Hemoglobin 11.2 g/dl (14.0-18.0); Imm Gran Abs Auto 0.04 X10*3/uL (0.00-0.03); Imm Gran Pct Auto 0.4 % (0.0-0.4); Lymphocytes Percent Auto 9.8 % (20-40); Mean Corpuscular HGB Conc 34.1 g/dl (31.0-36.0); Mean Corpuscular Hemoglobin 32.2 pg (27.0-33.0); Mean Corpuscular Volume 94.3 fL (80.0-98.0); Mean Platelet Volume 9.1 fL (9.4-12.4); Monocytes Absolute Auto 0.9 X10*3/uL (0.1-1.2); Neutrophils Absolute Auto 7.8 x10*3/uL (2.0-8.3); Neutrophils Percent Auto 78.2 % (45-73); Platelet Count 179 X10*3/uL (160-400); Red Blood Count 3.48 X10*6/uL (4.60-5.80); Red Cell Distribution Width 12.6 % (11.0-16.0)
[2022-12-08 11:53] LABS: Lactic Acid 0.9 mmol/L (0.5-2.0)
[2022-12-08 12:11] LABS: Alanine Aminotransferase 38 U/L (0-40); Albumin Level 3.4 g/dL (3.5-5.0); Alkaline Phosphatase 54 U/L (39-117); Anion Gap 13 (12-20); Aspartate Amino Transferase 21 U/L (5-37); Bilirubin Total 0.5 mg/dL (0.0-1.0); Blood Urea Nitrogen 20 mg/dL (9-16); C Reactive Protein 13.82 mg/dL (< or = 0.50); Calcium 8.2 mg/dL (8.4-10.2); Carbon Dioxide 25 mmol/L (22-29); Chloride 102 mmol/L (96-108); Estimated Glomerular Filt Rate > 60; Glucose Random 114 mg/dL (60-115); Magnesium 2.3 mg/dL (1.6-2.6); Potassium 3.4 mmol/L (3.3-5.1); Sodium 137 mmol/L (135-145); Total Protein 5.8 g/dL (6.5-8.0)
[2022-12-08 12:28] LABS: Erythrocyte Sedimentation Rate 94 MM/HR (0-15)
[2022-12-08 12:47] LABS: Appearance Urine Clear; Color Urine Yellow; Glucose Urine UA Negative (Negative); Leukocyte Esterase Urine Large (3+) (Negative); Nitrite Urine Negative (Negative); PH 6.5 (5.0-9.0); UMIC TRIGGER UACC YES; Urine Blood Moderate (2+) (Negative); Urine Ketones Negative (Negative); Urine Protein 30 (1+) mg/dL (Neg-Trace)
[2022-12-08 12:49] LABS: Bacteria Urine None Seen (None Seen); Hyaline Casts Urine 0-2 /LPF (0-2); Squamous Epithelial Cell Urine 0-2 /HPF (0-2); UACC Culture Trigger YES; WBC Urine 21-50 /HPF (0-5)
[2022-12-08] MEDS: Clindamycin Phosphate/D5W 600 MG/50 ML PIGGYBACK 100 MG IV (12:59)
[2022-12-08] MEDS: 0.9 % Sodium Chloride 1,000 ML 999 ML IVCONT (12:59)
[2022-12-08 13:23] LABS: Influenza A PCR NEGATIVE (Negative); Influenza B PCR NEGATIVE (Negative); Resp Syncy Virus RNA Qual PCR NEGATIVE (Negative); SARS COV2 PCR INHOUSE NEGATIVE (Negative)
--- NOTE | 2022-12-08 13:28 | PM.IMHP ---
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 patient has been feeling ill since procedure 11/11/22. most recently was complaining of weakness and treated with cipro for uti about 1 week ptp. patient then noted to have 2/2 staph epi in blood from 12/03/22, felt initially to be contaminant. over last few days started having night sweats and chills. urine culture also growing staph epi, and 1/2 from repeat blood 12/05/22. Review of Systems Review of Systems: Yes all other systems are reviewed and are negative [facility] Medical History Anxiety Bladder mass BPH (benign prostatic hyperplasia) EtOH dependence HTN (hypertension) OA (osteoarthritis) Surgical History History of tonsillectomy Social History Alcohol intake: never Patient Tobacco Use Status: Never used Tobacco Advance Directives: Yes Advance Directives Information Provided: No Advance Directives on File: No service: No Meds Allergies Allergy/AdvReac Type Severity Reaction Status Date / Time bee pollen [bee stings] Allergy Anaphylaxis Verified 12/05/22 20:26 Active Medications: Current Medications Pharmacy Consult (Consult Rx Perform Med Rec) 1 each MISCELLANE ONCE PRN PRN Reason: Consult order Pharmacy Consult (Consult Rx Perform Med Rec) 1 each MISCELLANE ONCE PRN PRN Reason: Consult order Home Medications Medication Instructions Recorded Confirmed Last Taken Type finasteride 5 mg tablet 5 mg PO DAILY 10/29/22 11/12/22 Unknown History sertraline 50 mg tablet 50 mg PO DAILY 10/29/22 11/12/22 Unknown History Vitamin D3 800 units PO DAILY 11/08/22 11/12/22 Unknown History cyanocobalamin (vitamin B-12) 1,000 mcg PO DAILY 11/08/22 11/08/22 Unknown History 1,000 mcg tablet (Vitamin B-12) magnesium oxide mg 11/08/22 Unknown History multivitamin 1 tab PO DAILY 11/12/22 11/12/22 Unknown History potassium chloride PO DAILY 11/12/22 Unknown History losartan 50 mg tablet 50 mg PO QAM 12/05/22 Unknown History Physical Exam Vital Signs and Narrative: Vital Signs: Last Vital Signs Temp 97.8 F 12/08/22 11:09 Pulse 77 12/08/22 11:09 Resp 20 12/08/22 11:09 BP 127/54 L 12/08/22 11:09 Pulse Ox 95 12/08/22 11:09 O2 Del Method Room Air 12/08/22 11:09 BMI result Body Mass Index 21.9 General: AO X 3, no acute distress Resp: CTA bilateral, no accessory muscles used CVS: S1,S2,RRR GI: soft, non tender, non distended Neuro: motor grossly intact, alert Psych: appropriate affect, appropriate insight Results Labs 12/08/22 11:37 12/08/22 11:37 Labs: Laboratory Results - last 24 hr 12/08/22 12/08/22 12/08/22 11:37 11:37 11:37 MCV 94.3 MCH 32.2 MCHC 34.1 RDW 12.6 Plt Count 179 MPV 9.1 L Immature Gran % (Auto) 0.4 Neut % (Auto) 78.2 H Lymph % (Auto) 9.8 L [place] % (Auto) 9.0 Eos % (Auto) 2.3 Baso % (Auto) 0.3 Lymph # (Auto) 1.0 L [place] # (Auto) 0.9 Eos # (Auto) 0.2 Baso # (Auto) 0.0 Abs Immat Gran (auto) 0.04 H Absolute Neuts (auto) 7.8 Absolute Nucleated RBC 0.000 Nucleated RBC % (auto) 0.0 ESR 94 H Anion Gap 13 Estim Creat Clear Calc 68.0 Estimated GFR > 60 Random Glucose 114 Lactic Acid Calcium 8.2 L Magnesium 2.3 Total Bilirubin 0.5 AST 21 ALT 38 Alkaline Phosphatase 54 C-Reactive Protein 13.82 H Total Protein 5.8 L Albumin 3.4 L Urine Color Urine Appearance Urine pH Ur Specific [place] Urine Protein Urine Glucose (UA) Urine Ketones Urine Blood Urine Nitrite Ur Leukocyte Esterase Urine RBC Urine WBC Ur Squamous Epith Cells Urine Bacteria Hyaline Casts Influenza Type A (PCR) Influenza Type B (PCR) RSV RNA Qual (PCR) SARS-CoV-2 RNA (RT-PCR) 12/08/22 12/08/22 12/08/22 11:37 12:37 12:37 MCV MCH MCHC RDW Plt Count MPV Immature Gran % (Auto) Neut % (Auto) Lymph % (Auto) [place] % (Auto) Eos % (Auto) Baso % (Auto) Lymph # (Auto) [place] # (Auto) Eos # (Auto) Baso # (Auto) Abs Immat Gran (auto) Absolute Neuts (auto) Absolute Nucleated RBC Nucleated RBC % (auto) ESR Anion Gap Estim Creat Clear Calc Estimated GFR Random Glucose Lactic Acid 0.9 Calcium Magnesium Total Bilirubin AST ALT Alkaline Phosphatase C-Reactive Protein Total Protein Albumin Urine Color Yellow Urine Appearance Clear Urine pH 6.5 Ur Specific [place] 1.010 Urine Protein 30 (1+) H Urine Glucose (UA) Negative Urine Ketones Negative Urine Blood Moderate (2+) H Urine Nitrite Negative Ur Leukocyte Esterase Large (3+) H Urine RBC 6-10 H Urine WBC 21-50 H Ur Squamous Epith Cells 0-2 Urine Bacteria None Seen Hyaline Casts 0-2 Influenza Type A (PCR) NEGATIVE Influenza Type B (PCR) NEGATIVE RSV RNA Qual (PCR) NEGATIVE SARS-CoV-2 RNA (RT-PCR) NEGATIVE Assessment and Plan (1) Bacteremia: Status: Acute Plan 72M PMH HTN, Anxiety, BPH, Etoh dependence (intermittent, sober from sep 04, 2022), Bladder Ca s/p TURBT with bilateral stents placed and indwelling brewster 11/11/22, presented with weakness, chills staph epi bacteremia ?true infection due to indwelling catheter and/or stents vanc echo repeat cultures ID and eval BPH proscar mood disorder zoloft etoh dependence stable dvt prophylaxis - lovenox full code patient with bacteremia, expected to require atleast 2 midnights of inpatient iv antibiotics to clear bacteremia. Time Spent With Patient Time: Total time managing care of this patient today ____ minutes. Quality Stroke Does the patient have a stroke diagnosis?: No VTE Prior VTE?: No VTE Risk Level:: Medical - moderate - high VTE Device Contraindication: Treatment Not Indicated VTE Drug Contraindication: N/A - Med Ordered
[2022-12-08] MEDS: vancomycin/NS 2,000 MG/500 ML PLAST..BAG 250 MG IV (14:38)
[2022-12-08] MEDS: Enoxaparin Sodium 40 MG/0.4 ML SYRINGE SUBCUT (14:38)
[2022-12-08 15:56] VITALS: BP 124/63; PULSE 96; RESP 16; TEMP 36.3; O2SAT 98
--- NOTE | 2022-12-08 16:16 | PHA.MEDREC ---
Pharmacy Consult ? Medication Reconciliation Pharmacy has completed the medication reconciliation. spoke with patient. He takes magnesium, potassium (both BID), and vitamin D3 (daily) supplements however he does not know the doses of them. He also took one ciprofloxacin 500mg this morning but has not taken his second dose yet today.
[2022-12-08] MEDS: 0.9 % Sodium Chloride Flush 3 ML SYRINGE IVFLUSH (19:48)
[2022-12-08 20:00] VITALS: BP 142/65; PULSE 78; RESP 16; TEMP 37.1; O2SAT 98
[2022-12-09 03:24] VITALS: BP 136/68; PULSE 70; RESP 16; TEMP 36.1; O2SAT 98
[2022-12-09 06:46] LABS: Hemoglobin 10.1 g/dl (14.0-18.0); Mean Corpuscular HGB Conc 33.7 g/dl (31.0-36.0); Mean Corpuscular Hemoglobin 31.9 pg (27.0-33.0); Mean Corpuscular Volume 94.6 fL (80.0-98.0); Mean Platelet Volume 9.7 fL (9.4-12.4); Platelet Count 173 X10*3/uL (160-400); Red Blood Count 3.17 X10*6/uL (4.60-5.80); Red Cell Distribution Width 12.6 % (11.0-16.0)
--- NOTE | 2022-12-09 07:00 | CA_ITS ---
Transthoracic Echocardiogram Amended Patient (Last, First, Middle): Luis Han, Gender: Male Date of : 1950 Age: 72 Procedure Date: 12/09/2022 Procedure Type: Transthoracic Echocardiogram Location: S3E Height: 193.04 cm Weight: 83.46 kg BSA: 2.14 m2 Heart Rate: bpm BP: 142 / 65 mmHg Driver Material Handler: Referring MD: Mario Reed MD Symptoms: bacteremia Study Quality: Good ECG Rhythm: Sinus Conclusions: - The left ventricular systolic function is normal. The calculated ejection fraction is 64% by biplane method. - Trace to mild aortic regurgitation. - No obvious valvular pathology seen on this study. Findings Left Ventricle Normal left ventricular cavity size. There is mildly increased left ventricular wall thickness. The left ventricular systolic function is normal. The calculated ejection fraction is 64% by biplane method. There is no evidence of regional wall motion abnormalities. Diastolic function is normal for age. Right Ventricle Normal right ventricular cavity size and systolic function. Atria The left atrium is mildly dilated. The right atrium is normal in size. Aortic Valve There is a normal trileaflet aortic valve. There is no aortic valve stenosis. Trace to mild aortic regurgitation. Mitral Valve There is mild mitral annular calcification. There is trace mitral valve regurgitation. There is no mitral valve stenosis. Pulmonic Valve The pulmonic valve was not well visualized. Tricuspid Valve Normal tricuspid valve structure. There is trace tricuspid valve regurgitation. There is no evidence of pulmonary hypertension. Great Vessels There is mild dilatation of the ascending aorta measuring 3.90 cm. Venous The inferior vena cava is normal in size and collapses less than 50% with inspiration. There is a possible dilated coronary sinus. Pericardium/Pleural There is no evidence of pericardial effusion. Prior Study Comparison No prior study available for comparison. Recommendations, Care & Conclusions No obvious valvular pathology seen on this study. Measurements 2D Linear Measurements IVSd: 1.07 0.6-0.9/0.6-1.0 cm LVIDd: 4.78 3.9-5.3/4.2-5.9 cm LVIDd Index: 2.23 2.4-3.2/2.2-3.1 cm/m2 LVIDs: 2.73 2.0-3.6 cm LVPWd: 1.11 0.7-1.1 cm Ao Root: 3.30 2.1-3.5 cm LA Diam: 4.30 2.7-3.8/3.0-4.0 cm LAIDs Index: 2.01 1.5-2.3 cm/m2 LV Mass: 237.06 67-162/88-224 g LV Mass Index: 110.77 43-95/49-115 g/m2 LVOT Diam: 2.40 3.0+(-)1.3 cm 2D Volumes LA Vol: 34.10 2D Systolic Function EF 4C: 61.00 >55% EF 2C: 65.30 >55% EF BiP: 64.20 >55% Mitral Valve MV Pk E: 0.83 MV PK A: 0.99 MV Decel Time: 126.00 E/A: 0.80 E'Lateral: 8.59 E'Medial: 5.98 E/E' Med: 13.90 E/E' Lat: 9.70 PHT: 37.00 MVA PHT: 5.95 Decel [place]: 6.59 Aortic Valve AoV Pk Kalpesh: 1.92 AoV Mn Kalpesh: 1.14 AoV VTI: 0.39 AoV Pk Grad: 15.00 Aov Mn Grad: 6.00 GIOVANNA Cont.VTI: 2.74 LVOT LVOT Pk Kalpesh: 1.04 LVOT Mn Kalpesh: 0.71 LVOT VTI: 0.24 LVOT Pk Grad: 4.00 LVOT Mn Grad: 2.00 LVOT Diam: 2.40 LVOT Area: 4.52 Diastolic Function MV Pk E: 0.83 MV Pk A: 0.99 E/A: 0.80 E'Medial: 5.98 E/E' Med: 13.90 E' Laterial: 8.59 E/E' Lat: 9.70 Right Ventricle TAPSE (mm): 34.00 TVS' Kalpesh: 25.00 Tricuspid Valve TR Pk Kalpesh: 2.62 TR Pk Grad: 27.00 RA Press: 8.00 RVSP: 35.00 Great Vessels Aorta Ao Root-2D: 3.30 2.0-3.7 cm Ao Asc: 3.90 2.1-3.4 cm Pulmonary Valve PV Pk Kalpesh: 1.03 Peak PV Grad: 4.00 Updated in Other Vendor System with Status of Final Nicholas Choi MD electronically signed on 12/09/2022 1:32:42 PM with status of Final
[2022-12-09 07:08] LABS: Anion Gap 9 (12-20); Blood Urea Nitrogen 13 mg/dL (9-16); Calcium 7.7 mg/dL (8.4-10.2); Carbon Dioxide 27 mmol/L (22-29); Chloride 108 mmol/L (96-108); Creatinine Clr Calc Pharmacy 77.9; Estimated Glomerular Filt Rate > 60; Glucose Fasting 117 mg/dL (60-99); Potassium 3.6 mmol/L (3.3-5.1); Sodium 140 mmol/L (135-145)
--- NOTE | 2022-12-09 07:22 | HE.PHANOTE ---
Vancomycin Dosing renal fucntion is stable. Continue current regimen. Troguh schedule for 12/11 @ 1300 prior to 4th dose. Louann Carbone, CarolD
[2022-12-09 07:53] VITALS: BP 120/71; PULSE 65; RESP 17; TEMP 36.3; O2SAT 96
[2022-12-09] MEDS: 0.9 % Sodium Chloride Flush 3 ML SYRINGE IVFLUSH ×2 (08:07→20:43)
[2022-12-09] MEDS: Finasteride 5 MG TABLET PO (08:07)
[2022-12-09] MEDS: Sertraline HCL 50 MG TABLET PO (08:07)
[2022-12-09] MEDS: Losartan Potassium 50 MG TABLET PO (08:07)
--- NOTE | 2022-12-09 09:36 | P.PNIM_ITS ---
Subjective Subjective Date of Service: 12/09/22 Interval History: sweats Physical Exam Vital Signs: Vital Signs: Last Vital Signs Temp 97.3 F 12/09/22 07:53 Pulse 65 12/09/22 07:53 Resp 17 12/09/22 07:53 BP 120/71 12/09/22 07:53 Pulse Ox 96 12/09/22 07:53 O2 Del Method Room Air 12/09/22 07:53 BMI result Body Mass Index 21.9 General: AO X 3, no acute distress Resp: CTA bilateral, no accessory muscles used CVS: S1,S2,RRR GI: soft, non tender, non distended Neuro: motor grossly intact, alert Psych: appropriate affect, appropriate insight Objective Data Active Medications Enoxaparin Sodium (Enoxaparin Sodium 40 Mg/0.4 Ml Syringe) 40 mg SUBCUT Q24H [facility] Last Admin: 12/08/22 14:38 Dose: 40 mg Documented By: RAIN Finasteride (Finasteride 5 Mg Tablet) 5 mg PO DAILY [facility] Last Admin: 12/09/22 08:07 Dose: 5 mg Documented By: ARTURO Vancomycin HCl 1,500 mg/ (Sodium Chloride) 500 mls @ 333.333 mls/hr IV Q24H [facility] Losartan Potassium (Losartan Potassium 25 Mg Tablet) 25 mg PO DAILY [facility]; Protocol Pharmacy Consult (Consult Rx Perform Med Rec) 1 each MISCELLANE ONCE PRN PRN Reason: Consult order Pharmacy Consult (Consult Rx Vancomycin Dosing) 1 each MISCELLANE DAILY PRN PRN Reason: Consult order Sertraline HCl (Sertraline Hcl 50 Mg Tablet) 50 mg PO DAILY [facility] Last Admin: 12/09/22 08:07 Dose: 50 mg Documented By: ARTURO Sodium Chloride (0.9 % Sodium Chloride Flush 3 Ml Syringe) 3 ml IVFLUSH QSHIFT [facility] Last Admin: 12/09/22 08:07 Dose: 3 ml Documented By: ARTURO Labs 12/09/22 05:37 12/09/22 05:37 Labs: Laboratory Results - last 24 hr 12/08/22 12/08/22 12/08/22 11:37 11:37 11:37 MCV 94.3 MCH 32.2 MCHC 34.1 RDW 12.6 Plt Count 179 MPV 9.1 L Immature Gran % (Auto) 0.4 Neut % (Auto) 78.2 H Lymph % (Auto) 9.8 L [place] % (Auto) 9.0 Eos % (Auto) 2.3 Baso % (Auto) 0.3 Lymph # (Auto) 1.0 L [place] # (Auto) 0.9 Eos # (Auto) 0.2 Baso # (Auto) 0.0 Abs Immat Gran (auto) 0.04 H Absolute Neuts (auto) 7.8 Absolute Nucleated RBC 0.000 Nucleated RBC % (auto) 0.0 ESR 94 H Anion Gap 13 Estim Creat Clear Calc 68.0 Estimated GFR > 60 Random Glucose 114 Fasting Glucose Lactic Acid Calcium 8.2 L Magnesium 2.3 Total Bilirubin 0.5 AST 21 ALT 38 Alkaline Phosphatase 54 C-Reactive Protein 13.82 H Total Protein 5.8 L Albumin 3.4 L Urine Color Urine Appearance Urine pH Ur Specific [place] Urine Protein Urine Glucose (UA) Urine Ketones Urine Blood Urine Nitrite Ur Leukocyte Esterase Urine RBC Urine WBC Ur Squamous Epith Cells Urine Bacteria Hyaline Casts Influenza Type A (PCR) Influenza Type B (PCR) RSV RNA Qual (PCR) SARS-CoV-2 RNA (RT-PCR) 12/08/22 12/08/22 12/08/22 11:37 12:37 12:37 MCV MCH MCHC RDW Plt Count MPV Immature Gran % (Auto) Neut % (Auto) Lymph % (Auto) [place] % (Auto) Eos % (Auto) Baso % (Auto) Lymph # (Auto) [place] # (Auto) Eos # (Auto) Baso # (Auto) Abs Immat Gran (auto) Absolute Neuts (auto) Absolute Nucleated RBC Nucleated RBC % (auto) ESR Anion Gap Estim Creat Clear Calc Estimated GFR Random Glucose Fasting Glucose Lactic Acid 0.9 Calcium Magnesium Total Bilirubin AST ALT Alkaline Phosphatase C-Reactive Protein Total Protein Albumin Urine Color Yellow Urine Appearance Clear Urine pH 6.5 Ur Specific [place] 1.010 Urine Protein 30 (1+) H Urine Glucose (UA) Negative Urine Ketones Negative Urine Blood Moderate (2+) H Urine Nitrite Negative Ur Leukocyte Esterase Large (3+) H Urine RBC 6-10 H Urine WBC 21-50 H Ur Squamous Epith Cells 0-2 Urine Bacteria None Seen Hyaline Casts 0-2 Influenza Type A (PCR) NEGATIVE Influenza Type B (PCR) NEGATIVE RSV RNA Qual (PCR) NEGATIVE SARS-CoV-2 RNA (RT-PCR) NEGATIVE 12/09/22 12/09/22 05:37 05:37 MCV 94.6 MCH 31.9 MCHC 33.7 RDW 12.6 Plt Count 173 MPV 9.7 Immature Gran % (Auto) Neut % (Auto) Lymph % (Auto) [place] % (Auto) Eos % (Auto) Baso % (Auto) Lymph # (Auto) [place] # (Auto) Eos # (Auto) Baso # (Auto) Abs Immat Gran (auto) Absolute Neuts (auto) Absolute Nucleated RBC 0.000 Nucleated RBC % (auto) 0.0 ESR Anion Gap 9 L Estim Creat Clear Calc 77.9 Estimated GFR > 60 Random Glucose Fasting Glucose 117 H Lactic Acid Calcium 7.7 L D Magnesium Total Bilirubin AST ALT Alkaline Phosphatase C-Reactive Protein Total Protein Albumin Urine Color Urine Appearance Urine pH Ur Specific [place] Urine Protein Urine Glucose (UA) Urine Ketones Urine Blood Urine Nitrite Ur Leukocyte Esterase Urine RBC Urine WBC Ur Squamous Epith Cells Urine Bacteria Hyaline Casts Influenza Type A (PCR) Influenza Type B (PCR) RSV RNA Qual (PCR) SARS-CoV-2 RNA (RT-PCR) Microbiology Microbiology Results: Microbiology 12/08/22 Unknown Urine Culture - Final Urine Catheterized - Brew[place] Catheter No growth. Assessment and Plan (1) Bacteremia: Status: Acute Plan 72M PMH HTN, Anxiety, BPH, Etoh dependence (intermittent, sober from sep 04, 2022), Bladder Ca s/p TURBT with bilateral stents placed and indwelling brewster 11/11/22, presented with weakness, chills staph epi bacteremia ?true infection due to indwelling catheter and/or stents vanc echo repeat cultures ID and eval BPH proscar mood disorder zoloft etoh dependence stable dvt prophylaxis - lovenox full code reason for continued hospitalization:awaiting bacteremia clearance Time Spent With Patient Time: Total time managing care of this patient today ____ minutes. Quality Stroke Does the patient have a stroke diagnosis?: No VTE Prior VTE?: No VTE Risk Level:: Medical - moderate - high VTE Device Contraindication: Treatment Not Indicated VTE Drug Contraindication: N/A - Med Ordered
[2022-12-09] MEDS: vancomycin HCL 1,500 MG in 0.9 % Sodium Chloride 500 ML 333.33 MG IV (14:22)
--- NOTE | 2022-12-09 15:07 | MHC.CM.PN ---
pt is indepedent cm intervention is not indicated he lives with his is emmanuel schilling has own ride home
[2022-12-09 15:35] VITALS: BP 137/63; PULSE 81; RESP 16; TEMP 36.5; O2SAT 99
[2022-12-09 19:53] VITALS: BP 124/61; PULSE 78; RESP 17; TEMP 36.2; O2SAT 96
[2022-12-09] MEDS: Melatonin 3 MG TABLET 6 MG PO (20:43)
[2022-12-09] MEDS: Magnesium Oxide 400 MG TABLET PO (20:46)
--- NOTE | 2022-12-10 00:01 | P.CNID_ITS ---
History of Present Illness Data of Consult Service Date: 12/09/22 Requesting physician: Mario Reed Primary Care Provider: Alexa Montelongo MD [facility] Reason for consult: staph epi bacteremia He presents with chills and some hematuria for a day. He had bladder surgery for cancer done three weeks ago.. Blood culture staph epi x2 on 12/03 and urine culture negative. Again gram positive cocci 12/06 Review of Systems Review of Systems: Yes all other systems are reviewed and are negative PMFSH Past Medical History Medical History Anxiety Bladder mass BPH (benign prostatic hyperplasia) EtOH dependence HTN (hypertension) OA (osteoarthritis) Family History Family history: reviewed and not pertinent Surgical History Surgical History History of tonsillectomy Social History Social History Housing: House Do you presently have visiting nurse or other home services: No Alcohol intake: never Patient Tobacco Use Status: Never used Tobacco Use of substances other than those prescribed or required for medical reasons: No Currently Displaying Signs/Symptoms of Drug Intoxication Withdrawal: No Have you been hit, kicked, punched, or otherwise hurt by someone within the past year? If so, by whom?: No Do you feel safe in your current relationship?: No Are you made to feel afraid or neglected: No Advance Directives: No Advance Directives Information Provided: No Advance Directives on File: No Recently lost weight without trying: Unsure service: No Meds Allergies Allergy/AdvReac Type Severity Reaction Status Date / Time bee pollen [bee stings] Allergy Anaphylaxis Verified 12/05/22 20:26 Active Medications: Current Medications Cyanocobalamin (Cyanocobalamin (Vitamin B-12) 1,000 Mcg Tablet) 1,000 mcg PO DAILY COUNT [facility]CLUD[facility] Enoxaparin Sodium (Enoxaparin Sodium 40 Mg/0.4 Ml Syringe) 40 mg SUBCUT Q24H COUNT [facility]CLUD[facility] Last Admin: 12/09/22 14:22 Dose: Not Given Finasteride (Finasteride 5 Mg Tablet) 5 mg PO DAILY COUNT [facility]CLUD[facility] Last Admin: 12/09/22 08:07 Dose: 5 mg Vancomycin HCl 1,500 mg/ (Sodium Chloride) 500 mls @ 333.333 mls/hr IV Q24H COUNT [facility]CLUD[facility] Last Infusion: 12/09/22 16:22 Dose: Infused Losartan Potassium (Losartan Potassium 25 Mg Tablet) 25 mg PO DAILY COUNT [facility]CLUDES [facility]; Protocol Magnesium Oxide (Magnesium Oxide 400 Mg Tablet) 400 mg PO BID COUNT INCLUDES [facility] Last Admin: 12/09/22 20:46 Dose: 400 mg Melatonin (Melatonin 3 Mg Tablet) 6 mg PO BEDTIME COUNT INCLUDES [facility] Last Admin: 12/09/22 20:43 Dose: 6 mg Multivitamins/Vitamin C (Multivitamin Tablet) 1 tab PO DAILY COUNT [facility]CLUDES [facility] Pharmacy Consult (Consult Rx Perform Med Rec) 1 each MISCELLANE ONCE PRN PRN Reason: Consult order Pharmacy Consult (Consult Rx Vancomycin Dosing) 1 each MISCELLANE DAILY PRN PRN Reason: Consult order Sertraline HCl (Sertraline Hcl 50 Mg Tablet) 50 mg PO DAILY COUNT [facility]CLUD[facility] Last Admin: 12/09/22 08:07 Dose: 50 mg Sodium Chloride (0.9 % Sodium Chloride Flush 3 Ml Syringe) [facility] Last Admin: 12/09/22 20:43 Dose: 3 ml Home Medications Medication Instructions Recorded Confirmed Last Taken Type finasteride 5 mg tablet 5 mg PO DAILY 10/29/22 12/08/22 Unknown History sertraline 50 mg tablet 50 mg PO DAILY 10/29/22 12/08/22 Unknown History cyanocobalamin (vitamin B-12) 1,000 mcg PO DAILY 11/08/22 12/08/22 Unknown Hi story 1,000 mcg tablet (Vitamin B-12) magnesium oxide 400 mg PO BID 11/08/22 12/08/22 Unknown History multivitamin 1 tab PO DAILY 11/12/22 12/08/22 Unknown History potassium chloride PO BID 11/12/22 Unknown History losartan 50 mg tablet 25 mg PO QAM 12/05/22 12/08/22 Unknown History acetaminophen 650 mg 650 mg PO Q12H PRN Pain 12/08/22 12/08/22 Unknown History tablet,extended release cholecalciferol (vitamin D3) 25 25 mcg PO DAILY 12/08/22 12/08/22 Unknown History mcg (1,000 unit) tablet melatonin 5 mg tablet 5 mg PO BEDTIME 12/08/22 12/08/22 Unknown History Physical Exam Vital Signs: Vital Signs: Last Vital Signs Temp 97.2 F 12/09/22 19:53 Pulse 78 12/09/22 19:53 Resp 17 12/09/22 19:53 BP 124/61 12/09/22 19:53 Pulse Ox 96 12/09/22 19:53 O2 Del Method Room Air 12/09/22 19:53 BMI result Body Mass Index 21.9 Const: General: cooperative HEENT: Head: Yes normal to inspection Face and sinus: Yes normal facial exam Mouth: Normal oral and palatal mucosa present Teeth and gingiva: dentition normal Eyes: General: appearance normal, both eyes and all related structures Pupils: Equal, round and reactive pupils present Resp: Effort & Inspection: normal respiratory effort Cardio: Rate: regular rate Rhythm: regular rhythm GI: Palpation (GI): Soft to palpation and nontender : General: Yes no CVA tenderness Back/Spine/Pelvis: Back: no CVA tenderness Skin: General skin exam: no rashes or lesions noted Neuro: General: moves all extremities Cranial nerves: Yes Equal, round and reactive pupils present Extrem: General: Yes normal to inspection Psych: Appearance: grossly normal Results Labs 12/09/22 05:37 12/09/22 05:37 Labs: Short CBC 12/09/22 Range/Units 05:37 WBC 8.0 (4.8-10.8) X10*3/uL Hgb 10.1 L (14.0-18.0) g/dl Hct 30.0 L (42.0-52.0) % Plt Count 173 (160-400) X10*3/uL BMP 12/09/22 05:37 Sodium 140 Potassium 3.6 Chloride 108 Carbon Dioxide 27 BUN 13 Creatinine 0.96 Calcium 7.7 L D Microbiology Microbiology Results: Microbiology 12/08/22 12:37 Blood - Venous Blood Culture - Preliminary No growth after 24 hours. 12/08/22 11:37 Blood - Venous Blood Culture - Preliminary Prelim: GPC Gram Stain only 12/08/22 Unknown Urine Catheterized - [place]asc[place] Catheter Urine Culture - Final No growth. Assessment and Plan (1) Bacteremia: Status: Acute staph epi unusual pathogen patient had had bladder cancer repair (2) Urinary retention with incomplete bladder emptying: Status: Acute (3) Bladder cancer: Status: Acute Plan Change Vancomycin to Doxycycline 100 mg po bid 14 days. Doubt pathognt Time Spent With Patient Time: Total time managing care of this patient today ____ minutes.
[2022-12-10 03:01] VITALS: BP 128/71; PULSE 69; RESP 18; TEMP 36.8; O2SAT 96
[2022-12-10 06:17] LABS: Anion Gap 12 (12-20); Blood Urea Nitrogen 12 mg/dL (9-16); Calcium 7.8 mg/dL (8.4-10.2); Carbon Dioxide 25 mmol/L (22-29); Chloride 109 mmol/L (96-108); Creatinine Clr Calc Pharmacy 73.3; Estimated Glomerular Filt Rate > 60; Glucose Fasting 110 mg/dL (60-99); Potassium 3.7 mmol/L (3.3-5.1); Sodium 142 mmol/L (135-145)
[2022-12-10 06:19] LABS: Hematocrit 28.6 % (42.0-52.0); Hemoglobin 9.6 g/dl (14.0-18.0); Mean Corpuscular HGB Conc 33.6 g/dl (31.0-36.0); Mean Corpuscular Hemoglobin 32.1 pg (27.0-33.0); Mean Corpuscular Volume 95.7 fL (80.0-98.0); Mean Platelet Volume 9.4 fL (9.4-12.4); Platelet Count 210 X10*3/uL (160-400); Red Blood Count 2.99 X10*6/uL (4.60-5.80); Red Cell Distribution Width 12.9 % (11.0-16.0)
--- NOTE | 2022-12-10 07:05 | HE.PHANOTE ---
SONDRA ALMEIDA CONTINUE CURRENT DOSE, NEXT LEVEL DUE 12/11@1300 CJ
[2022-12-10] MEDS: Cyanocobalamin (Vitamin B-12) 1,000 MCG TABLET 1000 MCG PO (07:43)
[2022-12-10] MEDS: Losartan Potassium 25 MG TABLET PO (07:43)
[2022-12-10] MEDS: Finasteride 5 MG TABLET PO (07:43)
[2022-12-10] MEDS: Multivitamin TABLET 1 TAB PO (07:43)
[2022-12-10] MEDS: Sertraline HCL 50 MG TABLET PO (07:43)
[2022-12-10] MEDS: 0.9 % Sodium Chloride Flush 3 ML SYRINGE IVFLUSH ×3 (07:43→20:46)
[2022-12-10] MEDS: Magnesium Oxide 400 MG TABLET PO ×2 (07:44→20:46)
[2022-12-10 07:57] VITALS: BP 127/59; PULSE 63; RESP 18; TEMP 36.3; O2SAT 98
--- NOTE | 2022-12-10 09:27 | P.PNIM_ITS ---
Subjective Subjective Date of Service: 12/10/22 Interval History: improving Physical Exam Vital Signs: Vital Signs: Last Vital Signs Temp 97.3 F 12/10/22 07:57 Pulse 63 12/10/22 07:57 Resp 18 12/10/22 07:57 BP 127/59 L 12/10/22 07:57 Pulse Ox 98 12/10/22 07:57 O2 Del Method Room Air 12/10/22 07:57 BMI result Body Mass Index 21.9 Const: General: cooperative HEENT: Head: Yes normal to inspection Face and sinus: Yes normal facial exam Mouth: Normal oral and palatal mucosa present Teeth and gingiva: d entition normal Eyes: General: appearance normal, both eyes and all related structures Pupils: Equal, round and reactive pupils present Resp: Effort & Inspection: normal respiratory effort Cardio: Rate: regular rate Rhythm: regular rhythm GI: Palpation (GI): Soft to palpation and nontender : General: Yes no CVA tenderness Back/Spine/Pelvis: Back: no CVA tenderness Skin: General skin exam: no rashes or lesions noted Neuro: General: moves all extremities Cranial nerves: Yes Equal, round and reactive pupils present Extrem: General: Yes normal to inspection Psych: Appearance: grossly normal Objective Data Active Medications Cyanocobalamin (Cyanocobalamin (Vitamin B-12) 1,000 Mcg Tablet) 1,000 mcg PO DAILY [facility] Last Admin: 12/10/22 07:43 Dose: 1,000 mcg Documented By: ARTURO Enoxaparin Sodium (Enoxaparin Sodium 40 Mg/0.4 Ml Syringe) 40 mg SUBCUT Q24H [facility] Last Admin: 12/09/22 14:22 Dose: Not Given Documented By: ARTURO Non-Admin Reason: pt refused Finasteride (Finasteride 5 Mg Tablet) 5 mg PO DAILY [facility] Last Admin: 12/10/22 07:43 Dose: 5 mg Documented By: ARTURO Vancomycin HCl 1,500 mg/ (Sodium Chloride) 500 mls @ 333.333 mls/hr IV Q24H [facility] Last Infusion: 12/09/22 16:22 Dose: 0 mls/hr Documented By: ARTURO Losartan Potassium (Losartan Potassium 25 Mg Tablet) 25 mg PO DAILY [facility]; Protocol Last Admin: 12/10/22 07:43 Dose: 25 mg Documented By: ARTURO Magnesium Oxide (Magnesium Oxide 400 Mg Tablet) 400 mg PO BID [facility] Last Admin: 12/10/22 07:44 Dose: 400 mg Documented By: ARTURO Melatonin (Melatonin 3 Mg Tablet) 6 mg PO BEDTIME [facility] Last Admin: 12/09/22 20:43 Dose: 6 mg Documented By: ODRISM Multivitamins/Vitamin C (Multivitamin Tablet) 1 tab PO DAILY [facility] Last Admin: 12/10/22 07:43 Dose: 1 tab Documented By: ARTURO Pharmacy Consult (Consult Rx Perform Med Rec) 1 each MISCELLANE ONCE PRN PRN Reason: Consult order Pharmacy Consult (Consult Rx Vancomycin Dosing) 1 each MISCELLANE DAILY PRN PRN Reason: Consult order Sertraline HCl (Sertraline Hcl 50 Mg Tablet) 50 mg PO DAILY [facility] Last Admin: 12/10/22 07:43 Dose: 50 mg Documented By: ARTURO Sodium Chloride (0.9 % Sodium Chloride Flush 3 Ml Syringe) 3 ml IVFLUSH QSHIFT [facility] Last Admin: 12/10/22 07:43 Dose: 3 ml Documented By: ARTURO Labs 12/10/22 05:28 12/10/22 05:28 Labs: Laboratory Results - last 24 hr 12/10/22 12/10/22 05:28 05:28 MCV 95.7 MCH 32.1 MCHC 33.6 RDW 12.9 Plt Count 210 MPV 9.4 Absolute Nucleated RBC 0.000 Nucleated RBC % (auto) 0.0 Anion Gap 12 Estim Creat Clear Calc 73.3 Estimated GFR > 60 Fasting Glucose 110 H Calcium 7.8 L Microbiology Microbiology Results: Microbiology 12/08/22 12:37 Blood Culture - Preliminary Blood - Venous No growth after 24 hours. 12/08/22 11:37 Blood Culture - Preliminary Blood - Venous Prelim: GPC Gram Stain only 12/08/22 Unknown Urine Culture - Final Urine Catheterized - Brewster Catheter No growth. Assessment and Plan (1) Bacteremia: Status: Acute Plan 72M PMH HTN, Anxiety, BPH, Etoh dependence (intermittent, sober from sep 04, 2022), Bladder Ca s/p TURBT with bilateral stents placed and indwelling brewster 11/11/22, presented with weakness, chills staph epi bacteremia and bacturia ?true infection due to indwelling catheter and/or stents continue vanc echo - no vegetations seen repeat cultures 12/08 growing 08/26, follow up 12/10/22 ID and eval BPH proscar mood disorder zoloft etoh dependence stable dvt prophylaxis - lovenox full code reason for continued hospitalization:awaiting bacteremia clearance Time Spent With Patient Time: Total time managing care of this patient today ____ minutes. Quality Stroke Does the patient have a stroke diagnosis?: No VTE Prior VTE?: No VTE Risk Level:: Medical - moderate - high VTE Device Contraindication: Treatment Not Indicated VTE Drug Contraindication: N/A - Med Ordered
[2022-12-10 15:23] VITALS: BP 132/84; PULSE 78; RESP 16; TEMP 36.6; O2SAT 97
[2022-12-10] MEDS: Doxycycline Monohydrate 100 MG CAPSULE PO (17:17)
[2022-12-10 19:47] VITALS: BP 146/73; PULSE 63; RESP 16; TEMP 36.6; O2SAT 97
[2022-12-10] MEDS: Melatonin 3 MG TABLET 6 MG PO (20:46)
[2022-12-11 03:36] VITALS: BP 128/79; PULSE 79; RESP 18; TEMP 37.4; O2SAT 96
[2022-12-11] MEDS: Doxycycline Monohydrate 100 MG CAPSULE PO (05:57)
[2022-12-11 06:30] LABS: Hematocrit 27.3 % (42.0-52.0); Hemoglobin 9.3 g/dl (14.0-18.0); Mean Corpuscular HGB Conc 34.1 g/dl (31.0-36.0); Mean Corpuscular Hemoglobin 32.7 pg (27.0-33.0); Mean Corpuscular Volume 96.1 fL (80.0-98.0); Mean Platelet Volume 9.3 fL (9.4-12.4); Platelet Count 238 X10*3/uL (160-400); Red Blood Count 2.84 X10*6/uL (4.60-5.80); White Blood Count 8.7 X10*3/uL (4.8-10.8)
[2022-12-11 06:46] LABS: Anion Gap 11 (12-20); Blood Urea Nitrogen 12 mg/dL (9-16); Calcium 7.8 mg/dL (8.4-10.2); Carbon Dioxide 26 mmol/L (22-29); Chloride 109 mmol/L (96-108); Creatinine Clr Calc Pharmacy 71.2; Estimated Glomerular Filt Rate > 60; Glucose Fasting 101 mg/dL (60-99); Potassium 3.9 mmol/L (3.3-5.1); Sodium 142 mmol/L (135-145)
[2022-12-11 07:29] VITALS: BP 148/68; PULSE 62; RESP 16; TEMP 36.3; O2SAT 97
[2022-12-11] MEDS: Sertraline HCL 50 MG TABLET PO (08:14)
[2022-12-11] MEDS: Multivitamin TABLET 1 TAB PO (08:14)
[2022-12-11] MEDS: Losartan Potassium 25 MG TABLET PO (08:14)
[2022-12-11] MEDS: Cyanocobalamin (Vitamin B-12) 1,000 MCG TABLET 1000 MCG PO (08:14)
[2022-12-11] MEDS: Magnesium Oxide 400 MG TABLET PO (08:14)
[2022-12-11] MEDS: Finasteride 5 MG TABLET PO (08:15)
[2022-12-11] MEDS: 0.9 % Sodium Chloride Flush 3 ML SYRINGE IVFLUSH (08:15)
--- NOTE | 2022-12-11 12:19 | P.DS_ITS ---
DS: Providers Provider Date of Service: 12/11/22 Date of admission: 12/08/22 13:28 Date of discharge: 12/11/22 Primary care physician: Alexa Montelongo MD Consults: 12/08/22 13:25 Consult to Infectious Diseases Routine [place]ing [place] [facility] [place] Reason for consultation: ?coag neg staph bacteremia Consult to Urology Routine Consulting Provider: Ricky Mckeon Reason for consultation: s/p tubrt, stent, bacteremia DS: Diagnosis Discharge Diagnosis (1) Bacteremia: Status: Acute DS: Summary Hospital Course Hospital Course: 72M PMH HTN, Anxiety, BPH, Etoh dependence (intermittent, sober from sep 04, 2022), Bladder Ca s/p TURBT with bilateral stents placed and indwelling brewster 11/11/22, presented with weakness, chills. patient has been feeling ill since procedure 11/11/22. most recently was complaining of weakness and treated with cipro for uti about 1 week ptp. patient then noted to have 2/2 staph epi in blood from 12/03/22, felt initially to be contaminant. over last few days started having night sweats and chills. urine culture also growing staph epi, and 1/2 from repeat blood 12/05/22. Hospital Course Admitted started on vancomycin. In consultation by Infectious Disease. Repeat blood cultures negative. Id felt that this was not a true pathogen and recommended doxycycline 100 mg b.i.d. for 14 days. At this time patient is medically acceptable for discharge Time Spent with Patient Time attestation: Total time managing care of this patient today ____ minutes. Discharge coordination time: Greater than 30 minutes Quality: Safe Use of Opioids Does Pt have an Active Cancer Diagnosis on the Problem List?: No Quality: Stroke Does the patient have a stroke diagnosis?: No Physical Exam Vital Signs: Vital Signs: Last Vital Signs Temp 97.4 F 12/11/22 07:29 Pulse 62 12/11/22 07:29 Resp 16 12/11/22 07:29 BP 148/68 H 12/11/22 07:29 Pulse Ox 97 12/11/22 07:29 O2 Del Method Room Air 12/11/22 07:29 BMI result Body Mass Index 21.9 Const: Other: Awake alert no acute distress General: cooperative HEENT: Head: Yes normal to inspection Face and sinus: Yes normal facial exam Mouth: Normal oral and palatal mucosa present Teeth and gingiva: dentition normal Eyes: General: appearance normal, both eyes and all related structures Pupils: Equal, round and reactive pupils present Resp: Other: Clear to auscultation bilaterally no rales rhonchi or wheezes Effort & Inspection: normal respiratory effort Cardio: Other: No S4; positive S1-S2; no S3 murmurs rubs or gallops Rate: regular rate Rhythm: regular rhythm GI: Other: Soft nontender nondistended normoactive bowel sounds Palpation (GI): Soft to palpation and nontender : General: Yes no CVA tenderness Back/Spine/Pelvis: Back: no CVA tenderness Skin: General skin exam: no rashes or lesions noted Neuro: General: moves all extremities Cranial nerves: Yes Equal, round and reactive pupils present Extrem: Other: No edema bilaterally General: Yes normal to inspection Psych: Appearance: grossly normal DS: Data Data Completed and Pending Completed studies during hospitalization [Text1]: Procedures Dilation of Bilateral Ureters with Intraluminal Device, Via Natural or Artificial Opening Endoscopic (11/11/22) Excision of Bladder, Via Natural or Artificial Opening Endoscopic (11/11/22) Fluoroscopy of Kidneys, Ureters and Bladder (11/11/22) Labs on day of discharge: Laboratory Results - last 24 hr 12/11/22 12/11/22 05:32 05:32 WBC 8.7 RBC 2.84 L Hgb 9.3 L Hct 27.3 L MCV 96.1 MCH 32.7 MCHC 34.1 RDW 13.0 Plt Count 238 MPV 9.3 L Absolute Nucleated RBC 0.000 Nucleated RBC % (auto) 0.0 Sodium 142 Potassium 3.9 Chloride 109 H Carbon Dioxide 26 Anion Gap 11 L BUN 12 Creatinine 1.05 Estim Creat Clear Calc 71.2 Estimated GFR > 60 Fasting Glucose 101 H Calcium 7.8 L Preliminary micro results at discharge 12/10/22 09:47 Blood Culture - Preliminary Blood - Venous No growth after 24 hours. 12/10/22 09:47 Blood Culture - Preliminary Blood - Venous No growth after 24 hours. 12/08/22 12:37 Blood Culture - Preliminary Blood - Venous No growth after 48 hours. Discharge Plan Discharge Anticipated Discharge Date/Time: 12/11/22 12:09 Patient Disposition: Home, Self-Care Discharge Diagnosis: Staph bacteremia Referrals: Alexa Montelongo MD [Primary Care Provider] - 1 Week Discharge Medications: New doxycycline monohydrate 100 mg Capsule 100 mg PO Q12H Qty: 28 0RF Continued cyanocobalamin (vitamin B-12) [Vitamin B-12] 1,000 mcg Tablet 1,000 mcg PO DAILY magnesium oxide 400 mg magnesium Tablet 400 mg PO BID multivitamin Tablet 1 tab PO DAILY potassium chloride PO BID losartan 50 mg tablet 25 mg PO QAM acetaminophen 650 mg Tablet Extended Release 650 mg PO Q12H PRN (Reason: Pain) melatonin 5 mg Tablet 5 mg PO BEDTIME cholecalciferol (vitamin D3) 25 mcg (1,000 unit) Tablet 25 mcg PO DAILY finasteride 5 mg tablet 5 mg PO DAILY sertraline 50 mg tablet 50 mg PO DAILY Discontinued ciprofloxacin HCl [Cipro] 500 mg tablet 500 mg PO BID Qty: 20 0RF Discharge Orders: Discharge Order (Routine); Ordered 12/11/22 Ordered By: Louie Grant Diet: Advance to usual diet Activity on Discharge: As tolerated Stand Alone Forms: Patient Portal Discharge page Care Plan Goals: Doxycycline 100 mg twice daily for 2 weeks Health Concerns: Resume all other pre-hospital medicine. Plan of Treatment: Stop ciprofloxacin Assessment: See discharge summary
--- NOTE | 2022-12-11 12:28 | MHC.CM.PN ---
pt dcd home no skilled sercvis ordered by
== END 2022-12-11 13:52 | disposition home or self-care (01) | DRG 699 ==
LOC: HO.ED 11:46 → HO.EDOVER 13:43 → HO.S3 14:34
PROVIDERS: Physician Assistant Medical; Admitting Provider Internal Medicine; Emergency Provider Emergency Medicine; PCP Internal Medicine; Visit Provider Hospitalist
DX: T83.511A Infection and inflammatory reaction due to indwelling urethral catheter, initial encounter (principal); F11.20 Opioid dependence, uncomplicated; R78.81 Bacteremia; C67.9 Malignant neoplasm of bladder, unspecified; R33.8 Other retention of urine; N40.1 Benign prostatic hyperplasia with lower urinary tract symptoms; R31.9 Hematuria, unspecified; F41.9 Anxiety disorder, unspecified; I10 Essential (primary) hypertension; Z20.822 Contact with and (suspected) exposure to COVID-19; Z79.899 Other long term (current) drug therapy
CPT/HCPCS: 0241U; 36415; 80048; 80053; 81001; 83605; 83735; 85025; 85027; 85652; 86140; 87040; 87086; 87147; 87205; 93306; 99285; J1650; J3370; J3371

== ENCOUNTER 2022-12-16 14:00 | Day surgery (SDC) | payer MEDICARE, SELFPAY ==
--- NOTE | 2022-12-13 14:47 | P.CONAN_ITS ---
Documented by User: Mallorie Weldon NP 12/13/22 15:22 HPI - Anesthesia Eval Consult details Narrative: 72yo M for TUR Bladder Tumor, Cystoscopy & Stent Removal C admit 12/08/22-12/11/22 with bacteremia. IV abx switched to PO prior to discharge. PCP eval 12/12/22. Unable to obtain office visit note. Dr Mckeon states proceed. s/p TURBT 10/2022 with GA-LMA 4 PMFSH Active Problems Active Problems: All Active Problems (Updated 12/12/22 @ 00:14 by Background Danuno) Bladder cancer (Acute) Urinary retention with incomplete bladder emptying (Acute) Bacteremia (Acute) Past Medical History Medical History (Updated 12/12/22 @ 00:14 by Background Nikunj) Anxiety Bladder mass BPH (benign prostatic hyperplasia) EtOH dependence HTN (hypertension) OA (osteoarthritis) Family History Family history of problems with anesthesia: No Surgical History Surgical History (Updated 12/12/22 @ 14:56 by Fallon Ojeda RN) History of tonsillectomy History of transurethral resection of bladder tumor (TURBT) History of Problems with Anesthesia: No Social History Social History Housing: House Do you presently have visiting nurse or other home services: No Alcohol intake: never Patient Tobacco Use Status: Former Tobacco user Tobacco use type: Cigarette Use of substances other than those prescribed or required for medical reasons: No Are you DNR?: No Advance Directives: No Advance Directives Information Provided: Yes Recently lost weight without trying: No How much weight loss: 14-23 pounds Nutrition Risks: No Nutritional Risk service: No Meds Allergies Allergy/AdvReac Type Severity Reaction Status Date / Time bee pollen [bee stings] Allergy Anaphylaxis Verified 12/05/22 20:26 Home Medications Medication Instructions Recorded Confirmed Last Taken Type finasteride 5 mg tablet 5 mg PO DAILY 10/29/22 12/08/22 Unknown History sertraline 50 mg tablet 50 mg PO DAILY 10/29/22 12/08/22 Unknown History cyanocobalamin (vitamin B-12) 1,000 mcg PO DAILY 11/08/22 12/08/22 Unknown History 1,000 mcg tablet (Vitamin B-12) magnesium oxide 400 mg PO BID 11/08/22 12/08/22 Unknown History multivitamin 1 tab PO DAILY 11/12/22 12/08/22 Unknown History potassium chloride PO BID 11/12/22 Unknown History losartan 50 mg tablet 25 mg PO QAM 12/05/22 12/16/22 12/16/22 History acetaminophen 650 mg 650 mg PO Q12H PRN Pain 12/08/22 12/08/22 Unknown History tablet,extended release cholecalciferol (vitamin D3) 25 25 mcg PO DAILY 12/08/22 12/08/22 Unknown History mcg (1,000 unit) tablet melatonin 5 mg tablet 5 mg PO BEDTIME 12/08/22 12/08/22 Unknown History Exam Exam Date and Time: December 13, 2022 399 Assessment and Plan Final Anesthetic Review Family History of Problems with Anesthesia: No History of Problems with Anesthesia: No Documented by User: Tori Nunn MD 12/16/22 20:07 [facility] Past Medical History Medical History (Updated 12/12/22 @ 00:14 by Williams Calvin) Anxiety Bladder mass BPH (benign prostatic hyperplasia) EtOH dependence HTN (hypertension) OA (osteoarthritis) Surgical History Surgical History (Updated 12/12/22 @ 14:56 by Fallon Ojeda, RN) History of tonsillectomy History of transurethral resection of bladder tumor (TURBT) Social History Social History Housing: House Do you presently have visiting nurse or other home services: No Alcohol intake: never Patient Tobacco Use Status: Former Tobacco user Tobacco use type: Cigarette Use of substances other than those prescribed or required for medical reasons: No Are you DNR?: No Advance Directives: No Advance Directives Information Provided: Yes Recently lost weight without trying: No How much weight loss: 14-23 pounds Nutrition Risks: No Nutritional Risk service: No Meds Allergies Allergy/AdvReac Type Severity Reaction Status Date / Time bee pollen [bee stings] Allergy Anaphylaxis Verified 12/05/22 20:26 Home Medications Medication Instructions Recorded Confirmed Last Taken Type finasteride 5 mg tablet 5 mg PO DAILY 10/29/22 12/08/22 Unknown History sertraline 50 mg tablet 50 mg PO DAILY 10/29/22 12/08/22 Unknown History cyanocobalamin (vitamin B-12) 1,000 mcg PO DAILY 11/08/22 12/08/22 Unknown History 1,000 mcg tablet (Vitamin B-12) magnesium oxide 400 mg PO BID 11/08/22 12/08/22 Unknown History multivitamin 1 tab PO DAILY 11/12/22 12/08/22 Unknown History potassium chloride PO BID 11/12/22 Unknown History losartan 50 mg tablet 25 mg PO QAM 12/05/22 12/16/22 12/16/22 History acetaminophen 650 mg 650 mg PO Q12H PRN Pain 12/08/22 12/08/22 Unknown History tablet,extended release cholecalciferol (vitamin D3) 25 25 mcg PO DAILY 12/08/22 12/08/22 Unknown History mcg (1,000 unit) tablet melatonin 5 mg tablet 5 mg PO BEDTIME 12/08/22 12/08/22 Unknown History Exam Airway Mallampati Class: II TM Dist: >3cm Neck ROM: Full Assessment and Plan Assessment Anesthesia Assessment: Anesthesia Plan Discussed and Chart Reviewed Final Anesthetic Review NPO: Yes ASA Class: III Final Preanesthetic Review: No Changes in Pt Med Stat, Meds/Allgs Chart Reviewed , Consent Obtained/Reviewed and Anes Risks/Benef Reviewed Patient Risk: Intermediate Procedure Risk: Low Anesthetic Plan Anesthetic Plan: GA Disposition: Standard PACU
[2022-12-16 14:11] VITALS: BMI 22.7
[2022-12-16 14:16] VITALS: BP 167/92; PULSE 89; RESP 16; TEMP 36.2; O2SAT 98
--- NOTE | 2022-12-16 14:35 | PC.NURSE ---
moved patient to pacu bed 14 and gave report to seble paredes.
[2022-12-16] MEDS: Acetaminophen 1,000 MG/100 ML PIGGYBACK 400 MG IV (17:55)
--- NOTE | 2022-12-16 19:15 | MHC.SHP ---
Pre-Procedural Eval Section A Date of Service: 12/16/22 The patient is an INPATIENT: No Changes since office visit: No Cold of Flu in the past 2 weeks, No New Medical Problems, No Changes in Medication and No Patient answered all questions The History & Physical has been completed within 30 days and I have reviewed it.: Yes Section B Chief Complaint: Malignant neoplasm of bladder, retention of urine Details of Present Illness: cystoscopy, bilateral stent removal, bladder biopsy Relevant Family History (Specify if Yes): No Relevant Social History: None Present Medications: see Short Stay Collaborative assessment Medical History: Significant History History of Previous Operations: Relevant previous surgery/procedure and date(s) Allergies: Allergies Allergy/AdvReac Type Severity Reaction Status Date / Time bee pollen [bee stings] Allergy Anaphylaxis Verified 12/05/22 20:26 Review of Systems Sugical H&P ROS: Negative: Constitution, Cardiovascular, Respiratory, Neurological, Psychiatric, Hem-Onc, Allergic/Immunologic, Gastrointestinal, Genitourinary, Musculoskeletal, Integumentary, Endocrine and Eyes/Ears/Nose/Throat Exam Surgical H&P Exam: Normal: HEENT, Normal: Heart, Normal: Lungs, Normal: Extremities, Normal: Abdomen, Normal: Skin and Normal: Neurological Plan Diagnosis/Plan: Unchanged I have reviewed the history and physical and performed a pertinent physical examination on my patient. No changes have occurred unless specified. Time Spent With Patient Time: Total time managing care of this patient today ____ minutes.
[2022-12-16 21:08] VITALS: BP 142/76; PULSE 67; RESP 16; TEMP 36.3; O2SAT 100
[2022-12-16 21:13] VITALS: BP 149/79; PULSE 68; RESP 14; O2SAT 100
[2022-12-16] MEDS: Phenazopyridine HCL 100 MG TABLET PO (21:13)
[2022-12-16 21:18] VITALS: BP 156/80; PULSE 70; RESP 16; O2SAT 99
[2022-12-16 21:23] VITALS: BP 158/87; PULSE 70; RESP 16; TEMP 36.8; O2SAT 98
--- NOTE | 2023-01-02 13:56 | W.PM.OPN ---
Operative Note Operative Note Date of Service: 12/16/22 Narrative: PreOperative Diagnosis: Bladder cancer with indwelling stents Post Operative Diagnosis: Bladder cancer with indwelling stents Procedure: 1. Cystoscopy with removal of bilateral indwelling stents 2. Fulguration and biopsy of remnant bladder cancer Surgeon: Dr Ricky Mckeon Anesthesia: General Indications for procedure: Large, extensive superficial low-grade bladder cancer removed previous session. Follow up to remove bilateral stents and to fulgurate remnant treatment areas Procedure: After informed consent was verified the patient was brought to the operating room and placed in a supine position. Anesthesia was administered per protocol. The patient was prepped and draped in a sterile fashion. Safety pause time-out was performed. Antibiotics being given. The patient be placed in modified dorsal lithotomy Cystoscopy inserted per urethra. No abnormality noted of anterior or posterior urethra. Indwelling ureteric stents seen. These were grasped and removed separately. Bladder examined. Areas of mucosal change seen. Using narrow band imaging enhancement areas of suspicion were identified and fulgurated. Small areas of cancer that had not been seen during initial resection were fulgurated. No areas were large enough to warrant resection. He tolerated the procedure well was extubated in operating room transferred to the stable condition to the recovery area Pathology: none Drains: none
== END 2022-12-16 21:41 | disposition home or self-care (01) ==
PROVIDERS: PCP Internal Medicine; Visit Provider Urology
PROC: 0TBB8ZZ Excision of Bladder, Via Natural or Artificial Opening Endoscopic (ICD-10-PCS; CPT 52214; principal; 2022-12-16 15:50)
PROC: (CPT 52310; 2022-12-16 15:50)
DX: C67.9 Malignant neoplasm of bladder, unspecified (principal); R33.9 Retention of urine, unspecified; N40.1 Benign prostatic hyperplasia with lower urinary tract symptoms; R39.14 Feeling of incomplete bladder emptying; I10 Essential (primary) hypertension; F10.20 Alcohol dependence, uncomplicated; F41.1 Generalized anxiety disorder; Z87.891 Personal history of nicotine dependence; Z79.899 Other long term (current) drug therapy; Z46.6 Encounter for fitting and adjustment of urinary device
CPT/HCPCS: 52214; J0131; J1100; J1956; J2405; J3010

== ENCOUNTER → 2022-12-27 10:53 | Outpatient (BNVA) | payer MEDICARE, SELFPAY | PROVIDERS: PCP Internal Medicine; Visit Provider Internal Medicine | DX: R78.81 Bacteremia (principal); R33.9 Retention of urine, unspecified | CPT/HCPCS: 99212 ==

== ENCOUNTER → 2023-01-02 11:49 | Outpatient (BNVA) | payer MEDICARE, SELFPAY | PROVIDERS: PCP Internal Medicine; Visit Provider Urology | DX: C67.9 Malignant neoplasm of bladder, unspecified (principal) | CPT/HCPCS: Q3014 ==

== ENCOUNTER 2023-03-18 09:48 | Outpatient (AMB) | payer MEDICARE, SELFPAY ==
--- NOTE | 2023-03-18 09:49 | MHC.OFFVIS ---
Intake Intake Visit Reasons: cysto Intake Note: Patient is present for Cystoscopy Urology Med: Finasteride, Terazosin Antibiotic Allergy:None Blood Thinner: None Disosable Cystoscope LOT: [id number] EXP: 01/13/2025 Urine will be sent for cytology Allergies bee pollen [bee stings] Allergy (Verified 03/18/23 09:52) Anaphylaxis HPI HPI Comments History of Present Illness Details Luis is a pleasant male. He is a patient of . He seen for the following urologic conditions - bladder cancer Check cystoscopy following gemcitabine induction Well-healed No repeat lesions 3 month follow-up cystoscopy Bladder cancer - 11/14 Low Grade, high Volume T1 Initial presentation August 2022 with hematuria Imaging - CT 09/16 5cm x 5cm left bladder wall lesion possible invasion Stop smoking 1991 No workplace chemical exposures Intervention - 11/14 TURBT - large, extensive - high volume low grade, T1 - postprocedure did have retention 1 week later with 1000 cc - 12/15 repeat TURBT - fulguration of multiple small remnant low-grade lesions - 6 week gemcitabine induction [facility] Medical History Anxiety Bladder mass BPH (benign prostatic hyperplasia) EtOH dependence HTN (hypertension) OA (osteoarthritis) Surgical History History of tonsillectomy History of transurethral resection of bladder tumor (TURBT) Social History Housing: House Do you presently have visiting nurse or other home services: No Alcohol intake: never Patient Tobacco Use Status: Former Tobacco user Tobacco use type: Cigarette service: No Review of Systems Const Denies chills and Denies fever(s) Card Reports no additional complaints and Denies syncope Resp Denies cough GI Denies abdominal pain and Denies heartburn Reports as per HPI and Denies change in libido Neuro Denies syncope Psych Denies change in libido Endo Denies change in libido Physical Exam Const General: cooperative, healthy appearing, comfortable and no acute distress Orientation/consciousness: patient oriented x3 HEENT Face and sinus: Yes normal facial exam Mouth: moist mucous membranes Neck Neck: Yes normal visual inspection, Yes full ROM and Yes trachea midline Chest Chest palpation & inspection: normal inspection of the chest Resp Effort & Inspection: normal respiratory effort, able to speak in complete sentences and no respiratory distress GI Inspection: Yes normal to inspection Back/Spine/Pelvis Cervical Spine: normal cervical lordosis Thoracic/Lumbar Spine: thoracic and lumbar spine normal to inspection Skin General skin exam: no rashes or lesions noted Neuro General: patient oriented x3, gait normal, tone normal and moves all extremities Extrem General: Yes normal to inspection and Yes capillary refill normal Office Procedures Cystoscopy Consent Discussed risk and benefit or proposed procedure with the patient. Information consent for procedure given to the patient. Discussed technical aspects, risks, benefits and alternatives in full. Addressed all of the patient's questions and concerns regarding the procedure. The patient demonstrated knowledge and understanding. They wish to proceed with this procedure. Preparation The patient was prepped in the usual manner. A advice nurse was present and in the room. Genitalia was prepped with betadine solution in a sterile manner. Lidocaine Jelly 2% was placed into the urethra and 16Fr flexible Olympus cystoscope was inserted into the meatus after adequate lubrication. Procedure Meatus circumcised Urethra anterior posterior urethra normal Prostatic Urethra unremarkable Bladder examination with retroflexion of cystoscope Bladder Orifices normal shape and position Bladder Capacity medium Trabeculations - Cellule Formation - Diverticulum Formation - Mucosal Erythema -- Bladder Tumor - [id number] Procedure code (CPT) selection complete Office Meds lidocaine HCl Performing Provider: Ricky Mckeon MD Administered by: SANDHYA Muhammad on 03/18/23 10:08 Dose Route Admin Location Lot Number Expiration Date [facility] Awake Overnight Monitor 10 mL intra-urethral nitrofurantoin monohyd/m-cryst 100 mg Performing Provider: Ricky Mckeon MD Administered by: SANDHYA Muhammad on 03/18/23 10:08 Dose Route Admin Location Lot Number Expiration Date [facility] Awake Overnight Monitor 100 mg PO Results AMB Urinalysis, Automated UA Leukoctes 0 Coty/uL Last Edit by SANDHYA Muhammad on 03/18/23 10:09 UA Nitrite Negative Last Edit by SANDHYA Muhammad on 03/18/23 10:09 UA Urobilinogen 0.2 mg/dL Last Edit by SANDHYA Muhammad on 03/18/23 10:09 UA Protein 0 mg/dL Last Edit by Arlet Del Angel RMA on 03/18/23 10:09 UA pH 6.0 Last Edit by Arlet Del Angel, RMA on 03/18/23 10:09 UA Blood 0 Derrek/uL Last Edit by Arlet Del Angel, RMA on 03/18/23 10:09 UA Specific [place] 1.010 Last Edit by Arlet Del Angel, RMA on 03/18/23 10:09 UA Ketone Negative Last Edit by Arlet Del Angel RMA on 03/18/23 10:09 UA Bilirubin 0 mg/dL Last Edit by Arlet Del Angel, RMA on 03/18/23 10:09 UA Glucose 0 mg/dL Last Edit by Arlet Del Angel A on 03/18/23 10:09 Results Reviewed Results Reviewed: Laboratory Last Values Urine pH (Auto) 6.0 03/18/23 09:53 Specific [place] (Auto) 1.010 03/18/23 09:53 Urine Protein (Auto) 0 mg/dL 03/18/23 09:53 Glucose (UA)(Auto) 0 mg/dL 03/18/23 09:53 Urine Ketones (Auto) Negative 03/18/23 09:53 Urine Blood (Auto) 0 Derrek/uL 03/18/23 09:53 Urine Nitrite (Auto) Negative 03/18/23 09:53 Urine Bilirubin (Auto) 0 mg/dL 03/18/23 09:53 Urine Urobilinogen (Auto) 0.2 mg/dL 03/18/23 09:53 Leukocyte Esterase (Auto) 0 Coty/uL 03/18/23 09:53 Assessment & Plan Assessment & Plan (1) Bladder cancer: Comment: 11/14 TURBT large, low grade, T1 Code(s): C67.9 - Malignant neoplasm of bladder, unspecified Plan Three month follow-up cystoscopy Orders: Orders Urine Cytology Today C67.9 - Malignant neoplasm of bladder, unspecified AMB Cystoscopy Today C67.9 - Malignant neoplasm of bladder, unspecified AMB Urinalysis Automated Today Z13.9 - Encounter for screening, unspecified Patient Instructions: Imaging studies, laboratory and physical exam results were discussed and reviewed in detail. No major barriers to patient understanding were identified. An opportunity to ask questions regarding the treatment plan was provided. All questions were answered. The patient expressed understanding and agreement with the above treatment plan. The patient is aware they should contact our office by phone for worsening of their current condition or the appearance of new urologic symptoms. Compliance is encouraged with any medications and followup testing that is ordered. It is a privilege to participate in the urologic care of your patient. If you have any questions or concerns regarding treatment for the above conditions, or other urologic issues, please do not hesitate to contact me. The office telephone contact is [phone]. This note is constructed using voice recognition software. While every effort has been made to ensure accuracy roll edge stitcher hand errors may have been included. Yours sincerely, Dr Ricky Mckeon MD, MARK ANTHON[facility] - Urology Providers of Expert, Compassionate Care for the Genitourinary System Coding Level of Care Code Procedure Only Diagnoses Bladder cancer C67.9 CPT Codes Cystoscopy - CPT: [id number] ([id number])
== END 2023-03-18 11:06 | disposition home or self-care (01) ==
PROVIDERS: Visit Provider Urology
DX: C67.9 Malignant neoplasm of bladder, unspecified (principal)
CPT/HCPCS: 52000

== ENCOUNTER 2023-03-18 09:48 | Outpatient (REF) | payer MEDICARE, SELFPAY ==
[2023-03-18 18:01] LABS: Urine Cytology See Pathology rpt
== END 2023-03-18 09:49 | disposition home or self-care (01) ==
LOC: HO.LAB 09:48
PROVIDERS: Visit Provider Urology
DX: C67.9 Malignant neoplasm of bladder, unspecified (principal)
CPT/HCPCS: 52000; 88112

== ENCOUNTER 2023-06-17 09:45 | Outpatient (REF) | payer MEDICARE, SELFPAY ==
[2023-06-17 16:58] LABS: Urine Cytology See Pathology rpt
== END 2023-06-17 09:46 | disposition home or self-care (01) ==
LOC: HO.LAB 09:45
PROVIDERS: PCP Internal Medicine; Visit Provider Urology
DX: C67.9 Malignant neoplasm of bladder, unspecified (principal); R33.9 Retention of urine, unspecified
CPT/HCPCS: 52000; 81003; 88112; 99212

== ENCOUNTER 2023-06-17 09:45 | Outpatient (AMB) | payer MEDICARE, SELFPAY ==
--- NOTE | 2023-06-17 09:51 | MHC.OFFVIS ---
Intake Intake Visit Reasons: 3m/cysto(Bladder Ca) Intake Note: Patient is Present for Cystoscopy Urology Med: Finasteride, Terazosin Antibiotic Allergy: None Blood Thinner: None Pharmacy: [facility] Disposable Cystoscope lot: [id number] exp:01/05/2025 Allergies bee pollen [bee stings] Allergy (Verified 06/17/23 10:23) Anaphylaxis HPI HPI Comments History of Present Illness Details Luis is a pleasant male. He is a patient of . He seen for the following urologic conditions - bladder cancer Check cystoscopy following gemcitabine induction Well-healed Three small lesions Plan TURBT with mitomycin-C with cytarabine Bladder cancer - 11/14 Low Grade, high Volume T1 Initial presentation August 2022 with hematuria Imaging - CT 09/16 5cm x 5cm left bladder wall lesion possible invasion Stop smoking 1991 No workplace chemical exposures Intervention - 11/14 TURBT - large, extensive - high volume low grade, T1 - postprocedure did have retention 1 week later with 1000 cc - 12/15 repeat TURBT - fulguration of multiple small remnant low-grade lesions - 6 week gemcitabine induction Cystoscopy - 06/16 3 small 1cm tumors Cytology - 03/16 [facility] Medical History Anxiety Bladder mass BPH (benign prostatic hyperplasia) EtOH dependence HTN (hypertension) OA (osteoarthritis) Surgical History History of tonsillectomy History of transurethral resection of bladder tumor (TURBT) Social History Housing: House Do you presently have visiting nurse or other home services: No Alcohol intake: never Patient Tobacco Use Status: Former Tobacco user Tobacco use type: Cigarette service: No Review of Systems Const Denies chills and Denies fever(s) Card Reports no additional complaints and Denies syncope Resp Denies cough GI Denies abdominal pain and Denies heartburn Reports as per HPI and Denies change in libido Neuro Denies syncope Psych Denies change in libido Endo Denies change in libido Physical Exam Const General: cooperative, healthy appearing, comfortable and no acute distress Orientation/consciousness: patient oriented x3 HEENT Face and sinus: Yes normal facial exam Mouth: moist mucous membranes Neck Neck: Yes normal visual inspection, Yes full ROM and Yes trachea midline Chest Chest palpation & inspection: normal inspection of the chest Resp Effort & Inspection: normal respiratory effort, able to speak in complete sentences and no respiratory distress GI Inspection: Yes normal to inspection Back/Spine/Pelvis Cervical Spine: normal cervical lordosis Thoracic/Lumbar Spine: thoracic and lumbar spine normal to inspection Skin General skin exam: no rashes or lesions noted Neuro General: patient oriented x3, gait normal, tone normal and moves all extremities Extrem General: Yes normal to inspection and Yes capillary refill normal Office Procedures Cystoscopy Consent Discussed risk and benefit or proposed procedure with the patient. Information consent for procedure given to the patient. Discussed technical aspects, risks, benefits and alternatives in full. Addressed all of the patient's questions and concerns regarding the procedure. The patient demonstrated knowledge and understanding. They wish to proceed with this procedure. Preparation The patient was prepped in the usual manner. A pharmacy student was present and in the room. Genitalia was prepped with betadine solution in a sterile manner. Lidocaine Jelly 2% was placed into the urethra and 16Fr flexible Olympus cystoscope was inserted into the meatus after adequate lubrication. Procedure Meatus circumcised Urethra anterior posterior urethra normal Prostatic Urethra unremarkable Bladder examination with retroflexion of cystoscope Bladder Orifices normal shape and position Bladder Capacity medium Trabeculations grade 1/2 Cellule Formation yes Diverticulum Formation - Mucosal Erythema - Bladder Tumor 3 small 1 cm lesions on bladder base, posterior wall [id number] DISPOSABLE SCOPE URO-G FLEXIBLE SCOPE Procedure code (CPT) selection complete Office Meds lidocaine HCl 2 % mucosal jelly in applicator Performing Provider: Ricky Mckeon MD Performing Location[facility] Administered by: Ashwin Woodson LPN on 06/17/23 10:42 Dose Route Admin Location Dispensed Lot Number Expiration Date [facility] Clerk General Office 10 mL intra-urethral 10 mL nitrofurantoin monohydrate/macrocrystals 100 mg capsule Performing Provider: Ricky Mckeon MD Performing Location: [facility] Urology [facility] Administered by: Ashwin Woodson LPN on 06/17/23 10:42 Dose Route Admin Location Dispensed Lot Number Expiration Date [facility] Clerk General Office 100 mg PO 1 cap naproxen 500 mg tablet Performing Provider: Ricky Mckeon MD Performing Location: [facility] Administered by: Ashwin Woodson LPN on 06/17/23 10:42 Dose Route Admin Location Dispensed Lot Number Expiration Date [facility] Clerk General Office 500 mg PO 1 tab Results AMB Urinalysis, Automated UA Leukoctes 0 Coty/uL Last Edit by Arlet Del Angel A on 06/17/23 10:31 UA Nitrite Negative Last Edit by Arlet Del Angel A on 06/17/23 10:31 UA Urobilinogen 0.2 mg/dL Last Edit by Arlet Del Angel, A on 06/17/23 10:31 UA Protein 0 mg/dL Last Edit by Arlet Del Angel A on 06/17/23 10:31 UA pH 7.0 Last Edit by Arlet Del Angel A on 06/17/23 10:31 UA Blood 0 Derrek/uL Last Edit by Arlet Del Angel, A on 06/17/23 10:31 UA Specific [place] 1.010 Last Edit by Arlet Del Angel A on 06/17/23 10:31 UA Ketone Negative Last Edit by Arlet Del Angel A on 06/17/23 10:31 UA Bilirubin 0 mg/dL Last Edit by Arlet Del Angel A on 06/17/23 10:31 UA Glucose 0 mg/dL Last Edit by Arlet Del Angel A on 06/17/23 10:31 Results Reviewed Results Reviewed: Laboratory Last Values Urine pH (Auto) 7.0 06/17/23 10:23 Specific [place] (Auto) 1.010 06/17/23 10:23 Urine Protein (Auto) 0 mg/dL 06/17/23 10:23 Glucose (UA)(Auto) 0 mg/dL 06/17/23 10:23 Urine Ketones (Auto) Negative 06/17/23 10:23 Urine Blood (Auto) 0 Derrek/uL 06/17/23 10:23 Urine Nitrite (Auto) Negative 06/17/23 10:23 Urine Bilirubin (Auto) 0 mg/dL 06/17/23 10:23 Urine Urobilinogen (Auto) 0.2 mg/dL 06/17/23 10:23 Leukocyte Esterase (Auto) 0 Coty/uL 06/17/23 10:23 Assessment & Plan Assessment & Plan (1) Bladder cancer: Comment: 11/14 TURBT large, low grade, T1 Code(s): C67.9 - Malignant neoplasm of bladder, unspecified Qualifiers: Bladder location: unspecified site Qualified Code(s): C67.9 - Malignant neoplasm of bladder, unspecified (2) Urinary retention with incomplete bladder emptying: Code(s): R33.9 - Retention of urine, unspecified Plan Transurethral resection of bladder tumor with/without adjuvant cytotoxic bladder installation We discussed the nature of the decision and reasonable options for performing the above surgery. Interventions include TURBT with or without intravesical administration of immunotherapy or cytotoxic medication. The relative uncertainties and benefits related to each alternate procedure were adequately discussed. General surgical risks including, but not limited to, pain, bleeding, infection, myocardial infarction, pulmonary embolus, deep vein thrombosis and cerebrovascular accident which may result in further hospitalization were discussed. Full disclosure of the procedure as well as all major risks, benefits and complications were discussed including but not limited to damage to the urethra or bladder neck, need for ureteric stenting, perforation of the bladder, chemical cystitis, chemical peritonitis, epididymitis, and meatal stenosis. The success rate of the procedure was discussed. Success of the procedure in the short-term does not necessarily guarantee that long-term success will be maintained. Suitable follow up will need to be maintained. The patient showed understanding of discussion and wishes to proceed as above. Orders: Orders AMB Cystoscopy Today C67.9 - Malignant neoplasm of bladder, unspecified AMB Urinalysis Automated Today Z13.9 - Encounter for screening, unspecified Urine Cytology Today C67.9 - Malignant neoplasm of bladder, unspecified Patient Instructions: Imaging studies, laboratory and physical exam results were discussed and reviewed in detail. No major barriers to patient understanding were identified. An opportunity to ask questions regarding the treatment plan was provided. All questions were answered. The patient expressed understanding and agreement with the above treatment plan. The patient is aware they should contact our office by phone for worsening of their current condition or the appearance of new urologic symptoms. Compliance is encouraged with any medications and followup testing that is ordered. It is a privilege to participate in the urologic care of your patient. If you have any questions or concerns regarding treatment for the above conditions, or other urologic issues, please do not hesitate to contact me. The office telephone contact is [phone]. This note is constructed using voice recognition software. While every effort has been made to ensure accuracy sheet metal apprentice errors may have been included. Yours sincerely, Dr Ricky Mckeon MD, MARK ANTHON[facility] - Urology Providers of Expert, Compassionate Care for the Genitourinary System Coding Level of Care Code Est Pt Level 4 (46352) Diagnoses Malignant neoplasm of urinary bladder, unspecified site C67.9 Bladder location: unspecified site Urinary retention with incomplete bladder emptying R33.9 CPT Codes Cystoscopy - CPT: [id number] ([id number])
== END 2023-06-17 11:00 | disposition home or self-care (01) ==
PROVIDERS: PCP Internal Medicine; Visit Provider Urology
DX: C67.4 Malignant neoplasm of posterior wall of bladder (principal); R33.9 Retention of urine, unspecified; Z13.9 Encounter for screening, unspecified
CPT/HCPCS: 52000; 99214

== ENCOUNTER 2023-09-01 10:19 | Day surgery (SDC) | payer MEDICARE, SELFPAY ==
[2023-08-28 13:32] VITALS: BMI 22.8
--- NOTE | 2023-08-29 10:19 | HO.ANESPROP2 ---
Documented by User: Mallorie Weldon NP 08/29/23 10:23 HPI - Anesthesia Eval Consult details Narrative: 73yo M for TUR Bladder Tumor w/mitomycin, cytarabine s/p same 11/2022 with GA-LMA 4 PMFSH Active Problems Active Problems: All Active Problems (Updated 06/17/23 @ 10:43 by Ricky Mckeon MD) Bacteremia (Acute) Urinary retention with incomplete bladder emptying (Acute) Bladder cancer (Acute) Past Medical History Medical History (Updated 06/17/23 @ 10:43 by Ricky Mckeon MD) OA (osteoarthritis) EtOH dependence HTN (hypertension) Anxiety Bladder mass BPH (benign prostatic hyperplasia) Family History Family history of problems with anesthesia: No Surgical History Surgical History (Updated 08/28/23 @ 13:22 by Lashell Leos RN) History of transurethral resection of bladder tumor (TURBT) History of transurethral resection of bladder tumor (TURBT) History of tonsillectomy History of Problems with Anesthesia: No Social History Social History Housing: House Do you presently have visiting nurse or other home services: No Alcohol intake: never Patient Tobacco Use Status: Former Tobacco user Tobacco use type: Cigarette Use of substances other than those prescribed or required for medical reasons: No Are you DNR?: No Advance Directives: No Advance Directives Information Provided: Yes service: No Meds Allergies Allergy/AdvReac Type Severity Reaction Status Date / Time bee pollen [bee stings] Allergy Anaphylaxis Verified 09/01/23 10:39 Home Medications Medication Instructions Recorded Confirmed Last Taken Type finasteride 5 mg tablet 5 mg PO DAILY 10/29/22 09/01/23 Unknown History sertraline 50 mg tablet 50 mg PO DAILY 10/29/22 01/16/23 Unknown History cyanocobalamin (vitamin B-12) 1,000 mcg PO DAILY 11/08/22 09/01/23 Unknown History 1,000 mcg tablet (Vitamin B-12) magnesium oxide 400 mg PO BID 11/08/22 09/01/23 Unknown History multivitamin 1 tab PO DAILY 11/12/22 09/01/23 Unknown History potassium chloride PO BID 11/12/22 01/02/23 Unknown History acetaminophen 650 mg 650 mg PO Q12H PRN Pain 12/08/22 09/01/23 Unknown History tablet,extended release cholecalciferol (vitamin D3) 25 25 mcg PO DAILY 12/08/22 09/01/23 Unknown History mcg (1,000 unit) tablet melatonin 5 mg tablet 5 mg PO BEDTIME 12/08/22 09/01/23 Unknown History losartan 25 mg tablet 25 mg PO DAILY 06/17/23 09/01/23 09/01/23 07:45 History Exam Height,Weight and Vital Signs: Height 6 ft 4 in Weight 84.822 kg Pertinent Lab Results Pertinent Lab Results: Laboratory Tests 12/11/22 05:32 WBC 8.7 Hgb 9.3 L Hct 27.3 L Plt Count 238 Sodium 142 Potassium 3.9 Chloride 109 H Carbon Dioxide 26 BUN 12 Creatinine 1.05 Narrative Narrative: ECHO 2022 Conclusions: - The left ventricular systolic function is normal. The calculated ejection fraction is 64% by biplane method. - Trace to mild aortic regurgitation. - No obvious valvular pathology seen on this study. Assessment and Plan Assessment Anesthesia Assessment: Chart Reviewed Final Anesthetic Review Family History of Problems with Anesthesia: No History of Problems with Anesthesia: No Documented by User: Starr Sarah MD 09/01/23 11:53 [facility] Past Medical History Medical History (Updated 06/17/23 @ 10:43 by Ricky Mckeon MD) OA (osteoarthritis) EtOH dependence HTN (hypertension) Anxiety Bladder mass BPH (benign prostatic hyperplasia) Surgical History Surgical History (Updated 08/28/23 @ 13:22 by Lashell Leos RN) History of transurethral resection of bladder tumor (TURBT) History of transurethral resection of bladder tumor (TURBT) History of tonsillectomy Social History Social History Housing: House Do you presently have visiting nurse or other home services: No Alcohol intake: never Patient Tobacco Use Status: Former Tobacco user Tobacco use type: Cigarette Use of substances other than those prescribed or required for medical reasons: No Are you DNR?: No Advance Directives: No Advance Directives Information Provided: Yes service: No Meds Allergies Allergy/AdvReac Type Severity Reaction Status Date / Time bee pollen [bee stings] Allergy Anaphylaxis Verified 09/01/23 10:39 Home Medications Medication Instructions Recorded Confirmed Last Taken Type finasteride 5 mg tablet 5 mg PO DAILY 10/29/22 09/01/23 Unknown History sertraline 50 mg tablet 50 mg PO DAILY 10/29/22 01/16/23 Unknown History cyanocobalamin (vitamin B-12) 1,000 mcg PO DAILY 11/08/22 09/01/23 Unknown History 1,000 mcg tablet (Vitamin B-12) magnesium oxide 400 mg PO BID 11/08/22 09/01/23 Unknown History multivitamin 1 tab PO DAILY 11/12/22 09/01/23 Unknown History potassium chloride PO BID 11/12/22 01/02/23 Unknown History acetaminophen 650 mg 650 mg PO Q12H PRN Pain 12/08/22 09/01/23 Unknown History tablet,extended release cholecalciferol (vitamin D3) 25 25 mcg PO DAILY 12/08/22 09/01/23 Unknown History mcg (1,000 unit) tablet melatonin 5 mg tablet 5 mg PO BEDTIME 12/08/22 09/01/23 Unknown History losartan 25 mg tablet 25 mg PO DAILY 06/17/23 09/01/23 09/01/23 07:45 History Exam Airway Mallampati Class: II (multiple caps laterally) TM Dist: >3cm Neck ROM: Full Heart: rrr Lungs: cta Assessment and Plan Assessment Anesthesia Assessment: Anesthesia Plan Discussed Final Anesthetic Review NPO: Yes ASA Class: III Final Preanesthetic Review: No Changes in Pt Med Stat, Meds/Allgs Chart Reviewed and Consent Obtained/Reviewed Patient Risk: Intermediate Procedure Risk: Intermediate Anesthetic Plan Anesthetic Plan: GA Disposition: Standard PACU
[2023-09-01] VITALS (10 sets, daily range): BP systolic 107–152; BP diastolic 56–78; PULSE 57–86; RESP 16–18; TEMP 36.6–36.8; O2SAT 95–100; BMI 26.4
--- NOTE | 2023-09-01 12:14 | MHC.SHP ---
Pre-Procedural Eval Section A Date of Service: 09/01/23 The patient is an INPATIENT: No Changes since office visit: No Cold of Flu in the past 2 weeks, No New Medical Problems, No Changes in Medication and No Patient answered all questions The History & Physical has been completed within 30 days and I have reviewed it.: No Section B Chief Complaint: Malignant neoplasm of bladder, unspecified Details of Present Illness: Recurrent superficial disease Relevant Family History (Specify if Yes): No Relevant Social History: None Present Medications: see Short Stay Collaborative assessment Medical History: No relevant PMH History of Previous Operations: Relevant previous surgery/procedure and date(s) Allergies: Allergies Allergy/AdvReac Type Severity Reaction Status Date / Time bee pollen [bee stings] Allergy Anaphylaxis Verified 09/01/23 10:39 Review of Systems Sugical H&P ROS: Negative: Constitution, Cardiovascular, Respiratory, Neurological, Psychiatric, Hem-Onc, Allergic/Immunologic, Gastrointestinal, Genitourinary, Musculoskeletal, Integumentary, Endocrine and Eyes/Ears/Nose/Throat Exam Surgical H&P Exam: Normal: HEENT, Normal: Heart, Normal: Lungs, Normal: Extremities, Normal: Abdomen, Normal: Skin and Normal: Neurological Plan Diagnosis/Plan: Unchanged I have reviewed the history and physical and performed a pertinent physical examination on my patient. No changes have occurred unless specified. Time Spent With Patient Time: Total time managing care of this patient today ____ minutes.
--- NOTE | 2023-09-01 12:53 | W.PM.OPN ---
Operative Note Operative Note Date of Service: 09/01/23 Narrative: PreOperative Diagnosis: bladder cancer Post Operative Diagnosis: bladder cancer - multiple Tumor size 1 cm, location right lobe bladder sidewall cluster 3 lesions, right upper bladder sidewall 1 lesion, left upper bladder sidewall 1 lesion Procedure: TURBT and mitomycin-C with gemcitabine Surgeon: Dr Ricky Mckeon Anesthesia: general Indications for procedure: prior high-grade superficial bladder cancer. Small lesions seen in multiple locations on cystoscopy in office Procedure: After informed consent was verified the patient was brought to the operating room and placed in a supine position. Anesthesia was administered per protocol. The patient was placed in a modified dorsal lithotomy position and prepped and draped in a sterile fashion. Safety pause time-out was performed. Antibiotics were confirmed. A 26 Uzbek continuous flow resectoscope was inserted per urethra. The visual obturator was used in order to minimize potential for urethral damage. lesions was seen after examination of the bladder. Three small lesions seen on right side wall low, 1 lesion seen right upper bladder sidewall and 1 lesion seen left double bladder sidewall. These lesions were removed using combination of resection and fulguration. At the completion of the procedure the bladder was irrigated. The cystoscope was removed. An [address] Plascencia catheter was inserted into the bladder. 10 cc was placed in the balloon. 40 mg of mitomycin-C in 20 cc normal saline with cytarabine was instilled into the bladder. The flow from the catheter was left clamped. The inflow to the catheter was attached to a 3 L normal saline bag. The patient tolerated the procedure well. They were extubated in the operating room and transferred in stable condition to the recovery area. chemotherapy will remain in the bladder for 1 hour. At the completion of 1 hour the clamp will be removed. The chemotherapy will be allowed to egress to the urine collection bag. The 3 L bag of normal saline will be run at maximum rate through the bladder in order to dilute any residual chemotherapy. The Plascencia catheter will then be removed. Pathology: none Drains: catheter as above
== END 2023-09-01 15:36 | disposition home or self-care (01) ==
PROVIDERS: PCP Internal Medicine; Visit Provider Urology
PROC: 0TBB8ZZ Excision of Bladder, Via Natural or Artificial Opening Endoscopic (ICD-10-PCS; CPT 52235; principal; 2023-09-01 12:10)
DX: C67.9 Malignant neoplasm of bladder, unspecified (principal); N40.0 Benign prostatic hyperplasia without lower urinary tract symptoms; I10 Essential (primary) hypertension; F41.9 Anxiety disorder, unspecified; F10.20 Alcohol dependence, uncomplicated; Z87.891 Personal history of nicotine dependence; Z98.890 Other specified postprocedural states
CPT/HCPCS: 52235; 51720; J1100; J1956; J2250; J2405; J2704; J3010; J9100; J9280

== ENCOUNTER → 2023-09-01 10:19 | Outpatient (BNV) | payer MEDICARE, SELFPAY | PROVIDERS: PCP Internal Medicine; Visit Provider Urology | DX: C67.8 Malignant neoplasm of overlapping sites of bladder (principal) | CPT/HCPCS: 52235 ==

== ENCOUNTER 2023-09-16 12:46 | Outpatient (AMB) | payer MEDICARE, SELFPAY ==
--- NOTE | 2023-09-16 13:04 | A.OFFVIS_ITS ---
Intake Intake Visit Reasons: S/P TURBT Allergies bee pollen [bee stings] Allergy (Verified 09/01/23 10:39) Anaphylaxis HPI HPI Comments History of Present Illness Details Luis is a pleasant male. He is a patient of . 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 Bladder cancer - 11/14 Low Grade, high Volume T1 Initial presentation August 2022 with hematuria Imaging - CT 09/16 5cm x 5cm left bladder wall le thelma possible invasion Stop smoking 1991 No workplace chemical exposures Intervention - 11/14 TURBT - large, extensive - high v olume low grade, T1 - postprocedure did have retention 1 wee k later with 1000 cc - 12/15 repeat TURBT - fulguration of mul tiple small remnant low-grade lesions - 6 week gemcitabine induction - 08/16 small lesions, negative cytology Cystoscopy - 06/16 3 small 1cm tumors Cytology - 03/16 [facility] Medical History (Updated 06/17/23 @ 10:43 by Ricky Mckeon MD) OA (osteoarthritis) EtOH dependence HTN (hypertension) Anxiety Bladder mass BPH (benign prostatic hyperplasia) Surgical History (Updated 08/28/23 @ 13:22 by Lashell Leos RN) History of transurethral resection of bladder tumor (TURBT) History of transurethral resection of bladder tumor (TURBT) History of tonsillectomy Social History Housing: House Do you presently have visiting nurse or other home services: No Alcohol intake: never Patient Tobacco Use Status: Former Tobacco user Tobacco use type: Cigarette service: No Review of Systems Const Denies chills and Denies fever(s) Card Reports no additional complaints and Denies syncope Resp Denies cough GI Denies abdominal pain and Denies heartburn Reports as per HPI and Denies change in libido Neuro Denies syncope Psych Denies change in libido Endo Denies change in libido Physical Exam Const General: cooperative, healthy appearing, comfortable and no acute distress Orientation/consciousness: patient oriented x3 HEENT Face and sinus: Yes normal facial exam Mouth: moist mucous membranes Neck Neck: Yes normal visual inspection, Yes full ROM and Yes trachea midline Chest Chest palpation & inspection: normal inspection of the chest Resp Effort & Inspection: normal respiratory effort, able to speak in complete sentences and no respiratory distress GI Inspection: Yes normal to inspection Back/Spine/Pelvis Cervical Spine: normal cervical lordosis Thoracic/Lumbar Spine: thoracic and lumbar spine normal to inspection Skin General skin exam: no rashes or lesions noted Neuro General: patient oriented x3, gait normal, tone normal and moves all extremities Extrem General: Yes normal to inspection and Yes capillary refill normal Office Procedures Post Void Residual Post Residual Void Post Void Residual (PVR): 172 [id number] Void Residual by ultrasound Assessment & Plan Assessment & Plan (1) Bladder cancer: Comment: 11/14 TURBT large, low grade, T1 Code(s): C67.9 - Malignant neoplasm of bladder, unspecified Qualifiers: Bladder location: unspecified site Qualified Code(s): C67.9 - Malignant neoplasm of bladder, unspecified Plan Two weeks chemo Three-month follow-up cystoscopy Orders: Orders AMB Post Void Residual by ultrasound Today R33.9 - Retention of urine, unspecified Patient Instructions: Imaging studies, laboratory and physical exam results were discussed and reviewed in detail. No major barriers to patient understanding were identified. An opportunity to ask questions regarding the treatment plan was provided. All questions were answered. The patient expressed understanding and agreement with the above treatment plan. The patient is aware they should contact our office by phone for worsening of their current condition or the appearance of new urologic symptoms. Compliance is encouraged with any medications and followup testing that is ordered. It is a privilege to participate in the urologic care of your patient. If you have any questions or concerns regarding treatment for the above conditions, or other urologic issues, please do not hesitate to contact me. The office telephone contact is [phone]. This note is constructed using voice recognition software. While every effort has been made to ensure accuracy slot tag inserter errors may have been included. Yours sincerely, Dr Ricky Mckeon MD, [facility] - Urology Providers of Expert, Compassionate Care for the Genitourinary System Coding Level of Care Code Est Pt Level 3 (44917) Diagnoses Malignant neoplasm of urinary bladder, unspecified site C67.9 Bladder location: unspecified site CPT Codes Post Residual Void - PVR CPT Code: 59316-Qznr Void Residual by ultrasound ([id number])
== END 2023-09-16 13:39 | disposition home or self-care (01) ==
PROVIDERS: PCP Internal Medicine; Visit Provider Urology
DX: C67.9 Malignant neoplasm of bladder, unspecified (principal)
CPT/HCPCS: 99213

== ENCOUNTER → 2023-09-16 12:46 | Outpatient (BNVA) | payer MEDICARE, SELFPAY | PROVIDERS: PCP Internal Medicine; Visit Provider Urology | DX: C67.9 Malignant neoplasm of bladder, unspecified (principal); R33.9 Retention of urine, unspecified | CPT/HCPCS: 51798; 99212 ==

== ENCOUNTER 2023-12-17 09:45 | Outpatient (AMB) | payer MEDICARE, SELFPAY ==
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
== END 2023-12-17 10:32 | disposition home or self-care (01) ==
PROVIDERS: PCP Internal Medicine; Visit Provider Urology
DX: C67.9 Malignant neoplasm of bladder, unspecified (principal)
CPT/HCPCS: 52000

== ENCOUNTER 2023-12-17 09:45 | Outpatient (REF) | payer MEDICARE, SELFPAY | END 2023-12-17 09:46 | disposition home or self-care (01) | LOC: HO.LAB 09:45 | PROVIDERS: PCP Internal Medicine; Visit Provider Urology | DX: C67.9 Malignant neoplasm of bladder, unspecified (principal) | CPT/HCPCS: 52000; 81003; 88121 ==

== ENCOUNTER 2024-03-17 10:47 | Outpatient (REF) | payer MEDICARE, SELFPAY | END 2024-03-17 10:48 | disposition home or self-care (01) | LOC: HO.LAB 10:47 | PROVIDERS: PCP Internal Medicine; Visit Provider Urology | DX: C67.9 Malignant neoplasm of bladder, unspecified (principal); N32.0 Bladder-neck obstruction | CPT/HCPCS: 52000; 81003; 88121; 99212 ==

== ENCOUNTER 2024-03-17 10:47 | Outpatient (AMB) | payer MEDICARE, SELFPAY ==
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
== END 2024-03-17 11:43 | disposition home or self-care (01) ==
PROVIDERS: PCP Internal Medicine; Visit Provider Urology
DX: C67.9 Malignant neoplasm of bladder, unspecified (principal); N32.0 Bladder-neck obstruction; Z13.9 Encounter for screening, unspecified
CPT/HCPCS: 52000; 99213

== ENCOUNTER 2024-07-20 09:45 | Outpatient (AMB) | payer MEDICARE, SELFPAY ==
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
== END 2024-07-20 11:26 | disposition home or self-care (01) ==
PROVIDERS: PCP Internal Medicine; Visit Provider Urology
DX: Z13.9 Encounter for screening, unspecified (principal)

== ENCOUNTER → 2024-07-20 09:45 | Outpatient (BNVA) | payer MEDICARE, SELFPAY | PROVIDERS: PCP Internal Medicine; Visit Provider Urology | DX: C67.9 Malignant neoplasm of bladder, unspecified (principal); N32.0 Bladder-neck obstruction | CPT/HCPCS: 52000; 81003; 99212 ==

== ENCOUNTER 2025-01-18 09:48 | Outpatient (AMB) | payer MEDICARE, SELFPAY ==
--- NOTE | 2025-01-18 10:10 | A.OFFVIS_ITS ---
Intake Visit Reasons: cysto Intake Note: Pt presents to the office today for a cystoscopy procedure. Cystoscope: Lot:[id number] Exp:12/31/26 Allergies bee pollen [bee stings] Allergy (Verified 01/18/25 10:10) Anaphylaxis PFS Medical History OA (osteoarthritis) EtOH dependence HTN (hypertension) Anxiety Bladder mass BPH (benign prostatic hyperplasia) Surgical History History of transurethral resection of bladder tumor (TURBT) History of transurethral resection of bladder tumor (TURBT) History of tonsillectomy Social History Housing: House Do you presently have visiting nurse or other home services: No Alcohol intake: never Patient Tobacco Use Status: Former Tobacco user Tobacco use type: Cigarette service: No Office Procedures Cystoscopy Consent Discussed risk and benefit or proposed procedure with the patient. Information consent for procedure given to the patient. Discussed technical aspects, risks, benefits and alternatives in full. Addressed all of the patient's questions and concerns regarding the procedure. The patient demonstrated knowledge and understanding. They wish to proceed with this procedure. Preparation The patient was prepped in the usual manner. A horse wrangler was present and in the room. Genitalia was prepped with betadine solution in a sterile manner. Lidocaine Jelly 2% was placed into the urethra and 16Fr flexible Olympus cystoscope was inserted into the meatus after adequate lubrication. Procedure Cystoscopy performed using a disposable Urovue digital 16 [place] cystoscope. Meatus circumcised Urethra anterior and posterior urethra normal Prostatic Urethra trilobar hyperplasia Bladder examination with retroflexion of cystoscope Bladder Orifices normal shape and position Bladder Capacity Normal Trabeculations grade 1/2 Cellule Formation -- Diverticulum Formation - Mucosal Erythema - Bladder Tumor - [id number] DISPOSABLE SCOPE URO-G FLEXIBLE SCOPE Procedure code (CPT) selection complete Office Meds lidocaine HCl 2 % mucosal jelly in applicator Performing Provider: Ricky Mckeon MD [facility]forming Location[facility] [place] [facility] Administered by: Lashell Leonard RN on 01/18/25 10:27 Dose Route Admin Location Dispensed Lot Number Expiration Date [facility] Set Up [employer] 10 mL intra-urethral 10 mL nitrofurantoin monohydrate/macrocrystals 100 mg capsule Performing Provider: Ricky Mckeon MD Performing Location: [facility] [place] [facility] Administered by: Lashell Leonard RN on 01/18/25 10:27 Dose Route Admin Location Dispensed Lot Number Expiration Date NDC Set Up [employer] 100 mg PO 1 cap Results AMB Urinalysis, Automated UA Leukoctes 0 Coty/uL Last Edit by Tianna Duque CMA on 01/18/25 10:18 UA Nitrite Negative Last Edit by Tianna Duque, [place] on 01/18/25 10:18 UA Urobilinogen 0.2 mg/dL Last Edit by Tianna Duque CMA on 01/18/25 10:18 UA Protein 0 mg/dL Last Edit by Tianna Duque CMA on 01/18/25 10:18 UA pH 6.5 Last Edit by Tianna Duque CMA on 01/18/25 10:18 UA Blood 0 Derrek/uL Last Edit by Tianna Duque CMA on 01/18/25 10:18 UA Specific [place] 1.005 Last Edit by Tianna Duque CMA on 01/18/25 10:18 UA Ketone Negative Last Edit by Tianna Duque CMA on 01/18/25 10:18 UA Bilirubin 0 mg/dL Last Edit by Tianna Duque CMA on 01/18/25 10:18 UA Glucose 0 mg/dL Last Edit by Tianna Duque CMA on 01/18/25 10:18 Results Reviewed Results Reviewed: Laboratory Last Values Urine pH (Auto) 6.5 01/18/25 10:11 Specific [place] (Auto) 1.005 01/18/25 10:11 Urine Protein (Auto) 0 mg/dL 01/18/25 10:11 Glucose (UA)(Auto) 0 mg/dL 01/18/25 10:11 Urine Ketones (Auto) Negative 01/18/25 10:11 Urine Blood (Auto) 0 Derrek/uL 01/18/25 10:11 Urine Nitrite (Auto) Negative 01/18/25 10:11 Urine Bilirubin (Auto) 0 mg/dL 01/18/25 10:11 Urine Urobilinogen (Auto) 0.2 mg/dL 01/18/25 10:11 Leukocyte Esterase (Auto) 0 Coty/uL 01/18/25 10:11 Assessment & Plan Assessment & Plan Orders: Orders AMB Urinalysis Automated Today C67.9 - Malignant neoplasm of bladder, unspecified AMB Cystoscopy Today C67.9 - Malignant neoplasm of bladder, unspecified Coding CPT Codes Cystoscopy - CPT: [id number] ([id number])
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
== END 2025-01-18 10:46 | disposition home or self-care (01) ==
LOC: HO.HUSH 09:48
PROVIDERS: PCP Internal Medicine; Visit Provider Urology
DX: C67.9 Malignant neoplasm of bladder, unspecified (principal); N32.0 Bladder-neck obstruction
CPT/HCPCS: 52000; 99213

== ENCOUNTER → 2025-01-18 09:48 | Outpatient (BNVA) | payer MEDICARE, SELFPAY | PROVIDERS: PCP Internal Medicine; Visit Provider Urology | DX: C67.9 Malignant neoplasm of bladder, unspecified (principal); N32.0 Bladder-neck obstruction | CPT/HCPCS: 52000; 81003; 99212 ==

== ENCOUNTER 2025-07-20 09:46 | Outpatient (REF) | payer MEDICARE, SELFPAY | END 2025-07-20 09:47 | disposition home or self-care (01) | LOC: HO.LAB 09:46 | PROVIDERS: PCP Internal Medicine; Visit Provider Urology | DX: C67.9 Malignant neoplasm of bladder, unspecified (principal); N32.0 Bladder-neck obstruction; Z13.89 Encounter for screening for other disorder | CPT/HCPCS: 52000; 81003; 88112; 99212 ==

== ENCOUNTER 2025-07-20 09:46 | Outpatient (AMB) | payer MEDICARE, SELFPAY ==
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
== END 2025-07-20 10:23 | disposition home or self-care (01) ==
LOC: HO.HUSH 09:46
PROVIDERS: PCP Internal Medicine; Visit Provider Urology
DX: C67.9 Malignant neoplasm of bladder, unspecified (principal); N32.0 Bladder-neck obstruction; Z13.9 Encounter for screening, unspecified
CPT/HCPCS: 52000; 99213